=== PATIENT | female | born 1950 | race Caucasian/White ===

== ENCOUNTER → 2017-11-06 12:19 | Outpatient (CLI) | payer MEDICARE, SELFPAY ==
[2017-11-06 13:35] LABS: Hemoglobin 14.8 g/dl (12.0-15.0); Mean Corp Hgb Conc 32.9 g/gl (32-36); Mean Corpuscular Hgb 30.6 pg (27.0-32.0); Mean Platelet Vol. 11.9 fl (6.2-12.0); Platelet Count 171 K/mm3 (150-450); RBC Distribution Width CV 13.4 % (11.6-14.6); RBC Distribution Width SD 45.1 fl (35.1-43.9); Red Blood Count 4.84 M/mm3 (4.2-5.4); Scan Indicated on CBC? Y/N NO; White Blood Count 6.1 K/mm3 (4.4-11.0)
[2017-11-06 14:20] LABS: ALB/GLOB Ratio 1.2 RATIO (0.9-2.4); AST(SGOT) 17 U/L (15-37); Alanine Aminotransfer ALT/SGPT 9 U/L (13-56); Albumin, Serum 3.7 g/dL (3.2-5.0); Alkaline Phosphatase 122 U/L (45-117); Anion Gap 8 (5-15); BUN 19 mg/dL (7-18); BUN/Creat Ratio 16.8 RATIO (10-20); Bilirubin, Direct 0.12 mg/dL (0.00-0.30); Calcium,Total 8.9 mg/dL (8.5-10.1); Chloride 108 mmol/L (98-107); Cholesterol 108 mg/dL (200); Creatinine, Serum 1.13 mg/dL (0.55-1.02); EST Glomerular Filtration Rate 51 mL/min (>60); Est Glom Filt Rate - Afr Amer 61 mL/min (>60); Globulin 3.2 g/dL (2.2-4.2); Glucose 105 mg/dL (70-110); High Density Lipoprotein 37 mg/dL; Phosphorus 3.6 mg/dL (2.5-4.9); Potassium 4.2 mmol/L (3.5-5.1); Protein, Total 6.9 g/dL (6.4-8.2); Sodium Level 143 mmol/L (136-145); Triglycerides 162 mg/dL
[2017-11-06 14:21] LABS: Ferritin 91 ng/mL (8-252); Free T3 2.2 pg/mL (2.18-3.98); Iron 74 ug/dL (50-170); Iron Binding Capacity,Total 309 ug/dL (250-450); T4 Free Direct 1.01 ng/dL (0.76-1.46); Thyroid Stim Hormone (TSH) 0.88 uIU/mL (0.358-3.74); Very Low Density Lipoprotein 32 mg/dL (5-40)
[2017-11-07 08:36] LABS: Vitamin B12 243 pg/mL (211-911)
== END ==
PROVIDERS: Family Provider Family Medicine; PCP Family Medicine; Visit Provider Nurse Practitioner Acute Care
DX: G20 Parkinson's disease (principal); E78.5 Hyperlipidemia, unspecified; I25.119 Atherosclerotic heart disease of native coronary artery with unspecified angina pectoris; I10 Essential (primary) hypertension
CPT/HCPCS: 36415; 80053; 80061; 82248; 82607; 82728; 82746; 83540; 83550; 83735; 84100; 84439; 84443; 84481; 85027

== ENCOUNTER 2017-12-04 13:00 | Outpatient (RCR) | payer MEDICARE, SELFPAY ==
--- NOTE | 2017-11-26 14:25 | HP.PTEVAL_ITS ---
Patient's Visit Information YVONNE LUCERO is a 67 year old F referred to Physical Therapy by Irma Morgan, TREVA FIERRO.LE with a diagnosis of Parkinsons. 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 - Subjective Subjective: Doctor sent her due to worsening Parkinson's. Veerrs right at time and runs into doors. Shuffle is increasing in gait. Worse in the morning. Worse when tired. No pain, no psinning, legs shake but no neuropathy. No falls. No AD needed. Live with who does a lot for her. Has steps at home which are not a problem with one rail. carries laundry for her and always has. Dresses self and showers self. Has chair in shower if needs it. Bathroom self. 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 On feet alot. Gets tired. Sleep is interrupted due to sleep apnea. Doc wants cpap but doesn't meet all qualifications. HEP: no. Enjoys reading and computer on non volunteering days. - Objective Walks normal but flat affect on face, transfers to and fro chair without EU independently. To and fro supine I. Steps are reciprocal with one rail. VOR ambulation slow but I. reflexes in patella and achilles 1/3. Sensation LE WNL to gross light touch. strength EL 4-/5 without myotomal abnormalities. flexibility is WFL. Mild tightness in HS and gastroc. coordination to reciprocal toe tap is slow. - Balance Scores Functional Gait Assessment Score: 28 % Disability: 6.6700 CATSIB Score (Max score 120 seconds): 110 - Goals Goal 1:: i with approp ex to help limit fatigue in gym via [employer] Goal Time Frame: 2-4 Weeks - Rehabilitation Potential Physical Therapy Diagnosis: Parkinsons' Rehabilitation Potential: Good - Anticipated Interventions Patient/Client Instruction: Educate patient on: Condition For the Purpose of:: To improve gait and locomotor functions Therapeutic Exercise to Include: Strength training For the Purpose of:: To improve muscle performance and motor function Thank you for the opportunity to evaluate your patient. For Medicare and Medicare HMO plans, please review the plan of care and approve it. It will need to be FAXED BACK to us at [phone] for Medicare purposes. Please let me know if there are questions or concerns regarding this plan of care. Physician Signature: Date:
--- NOTE | 2017-12-04 13:42 | HP.PTDCSUM ---
HP - PT D/C Summary It has been my pleasure to treat YVONNE LUCERO under orders from Irma Morgan, GURUC, PADMINI for the diagnosis of Parkinsons for a total of 2 visit(s). Discharge Date: 12/04/17 Please see the following information for a summary of their discharge status. - Subjective Subjective: Doing well, no pain, just wants to learn ex and get out. - Objective Objective/Function: Pt did well with exeercises and feels confident that , with the list, she can do it herself vs have more PT. 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 - D/C Information Discharge Comments: Pt wants to continue via [employer] due to cost vs cotninued PT. If there are questions or concerns regarding this patient's physical therapy, please feel free to call me at [phone]. Thank you for the referral of this patient. Sincerely, Mark Banks, DPT, OC
== END 2017-12-04 19:00 | disposition home or self-care (01) ==
LOC: PT 13:00
PROVIDERS: Family Provider Family Medicine; PCP Family Medicine; Visit Provider Nurse Practitioner Acute Care
DX: G20 Parkinson's disease (principal); R26.89 Other abnormalities of gait and mobility
CPT/HCPCS: 97110; 97162

== ENCOUNTER → 2018-01-19 20:09 | Outpatient (CLI) | payer MEDICARE, SELFPAY | PROVIDERS: Family Provider Family Medicine; PCP Family Medicine; Visit Provider Nurse Practitioner Acute Care | DX: G47.33 Obstructive sleep apnea (adult) (pediatric) (principal) | CPT/HCPCS: 95810 ==

== ENCOUNTER → 2018-04-22 20:13 | Outpatient (CLI) | payer MEDICARE, SELFPAY | PROVIDERS: Family Provider Family Medicine; PCP Family Medicine; Visit Provider Nurse Practitioner Acute Care | DX: G47.33 Obstructive sleep apnea (adult) (pediatric) (principal) | CPT/HCPCS: 95811 ==

== ENCOUNTER → 2018-05-28 11:54 | Outpatient (CLI) | payer MEDICARE, SELFPAY ==
--- NOTE | 2018-05-28 11:56 | BI_ITS ---
MAMMOGRAPHY - BILATERAL SCREENING REASON FOR EXAM: Female, 68 years old. Routine annual screening examination. PERTINENT HISTORY: Non-contributory. TECHNIQUE: Digital bilateral breast gregg (3D mammographic acquisition) in the CC and MLO projections. 2-D mediolateral oblique (MLO) and craniocaudad (CC) views of both breasts were obtained. CAD: Full Field Digital Mammography with Computer Added Detection was performed. COMPARISON: Comparison is made with prior study dated September 12, 2016 and July 27, 2014. FINDINGS: Breast Composition: There are scattered areas of fibroglandular density. There are no dominant masses or suspicious calcifications. No other significant abnormalities are identified. There has been no significant change since the prior study. BI/Bilat Brst Screen Gregg Add-On IMPRESSION: Stable bilateral screening mammogram. Yearly follow-up mammogram recommended. (A) ASSESSMENT CATEGORY: BIRADS Category 1: Negative. A letter regarding these results will be sent to the patient by the facility within 30 days. Approximately 10% of breast cancers are not detected by mammography. A normal mammogram should not delay biopsy of a clinically suspicious abnormality. [id number] Electronically Signed: Nabil Wadsworth MD at 13:09 EDT Tel [phone], Service support ,
== END ==
PROVIDERS: Family Provider Family Medicine; PCP Family Medicine; Visit Provider Family Medicine
DX: Z12.31 Encounter for screening mammogram for malignant neoplasm of breast (principal)
CPT/HCPCS: 77063; 77067

== ENCOUNTER → 2018-06-09 10:49 | Outpatient (CLI) | payer MEDICARE, SELFPAY ==
[2018-06-09 11:28] LABS: AST(SGOT) 13 U/L (15-37); Alanine Aminotransfer ALT/SGPT 10 U/L (13-56); Albumin, Serum 3.6 g/dL (3.2-5.0); Alkaline Phosphatase 127 U/L (45-117); Bilirubin, Direct 0.12 mg/dL (0.00-0.30); Cholesterol 111 mg/dL (200); Globulin 3.3 g/dL (2.2-4.2); High Density Lipoprotein 42 mg/dL; Protein, Total 6.9 g/dL (6.4-8.2); Triglycerides 151 mg/dL; Very Low Density Lipoprotein 30 mg/dL (5-40)
== END ==
PROVIDERS: Family Provider Family Medicine; PCP Family Medicine; Visit Provider Physician Assistant Medical
DX: I25.118 Atherosclerotic heart disease of native coronary artery with other forms of angina pectoris (principal); E78.5 Hyperlipidemia, unspecified
CPT/HCPCS: 36415; 80061; 80076

== ENCOUNTER → 2019-05-26 10:10 | Outpatient (CLI) | payer MEDICARE, SELFPAY ==
[2019-03-30 10:48] VITALS: BMI 28.5
[2019-05-26 11:20] LABS: Absolute Lymphocyte Count 1.16 X10^3/uL (0.83-4.51); Absolute Neutrophil Count 4.1 X10^3/uL (2.0-7.7); Basophil# 0.05 X10^3/uL; Basophil% 0.8 % (0-1); Eosinophil# 0.25 X10^3/uL; Eosinophils% 4.2 % (0-5); Hematocrit 44.6 % (37-47); Hemoglobin 14.6 g/dL (12.0-15.0); Lymphocyte # 1.16 X10^3/ul (4.0); Lymphocyte % 19.4 % (19-41); Mean Corp Hgb Conc 32.7 g/dL (32-36); Mean Corpuscular Hgb 30.5 pg (27.0-32.0); Mean Corpuscular Volume 93.3 fL (81-99); Mean Platelet Vol. 12.6 fl (6.2-12.0); Monocyte# 0.44 X10^3/uL; Monocyte% 7.4 % (0-10); NRBC Flagged by Analyzer 0 % (0-5); Neutrophil # 4.05 X10^3/uL (2.7-7.7); Neutrophil % 67.9 % (47-70); Platelet Count 145 K/mm3 (150-450); RBC Distribution Width CV 12.8 % (11.6-14.6); Red Blood Count 4.78 M/mm3 (4.2-5.4)
[2019-05-26 11:46] LABS: ALB/GLOB Ratio 1.2 RATIO (0.9-2.4); AST(SGOT) 17 U/L (15-37); Alanine Aminotransfer ALT/SGPT 8 U/L (13-56); Albumin, Serum 3.7 g/dL (3.2-5.0); Alkaline Phosphatase 128 U/L (45-117); Anion Gap 10 (5-15); BUN 24 mg/dL (7-18); BUN/Creat Ratio 22.6 RATIO (10-20); Calcium,Total 8.7 mg/dL (8.5-10.1); Chloride 108 mmol/L (98-107); Cholesterol 108 mg/dL (200); Creatinine, Serum 1.06 mg/dL (0.55-1.02); EST Glomerular Filtration Rate 54 mL/min (>60); Est Glom Filt Rate - Afr Amer 66 mL/min (>60); Globulin 3.1 g/dL (2.2-4.2); Glucose 99 mg/dL (74-106); High Density Lipoprotein 37 mg/dL; Potassium 4.1 mmol/L (3.5-5.1); Protein, Total 6.8 g/dL (6.4-8.2); Sodium Level 143 mmol/L (136-145); Triglycerides 270 mg/dL; Very Low Density Lipoprotein 54 mg/dL (5-40)
== END ==
PROVIDERS: Family Provider Family Medicine; PCP Family Medicine; Referring Provider Family Medicine; Visit Provider Family Medicine
DX: I25.10 Atherosclerotic heart disease of native coronary artery without angina pectoris (principal); I10 Essential (primary) hypertension; E78.5 Hyperlipidemia, unspecified; K76.0 Fatty (change of) liver, not elsewhere classified
CPT/HCPCS: 36415; 80053; 80061; 85025

== ENCOUNTER → 2019-06-08 11:56 | Outpatient (CLI) | payer MEDICARE, SELFPAY ==
[2019-03-30 10:48] VITALS: BMI 28.5
--- NOTE | 2019-06-08 11:58 | RAD_ITS ---
STUDY: X-RAY - LEFT HUMERUS REASON FOR EXAM: Female, 69 years old. Fall. Pain. TECHNIQUE: 3 view(s) of the humerus. COMPARISON: None. FINDINGS: Normal visualized humerus. There is no demonstrated fracture or osseous destructive process. There are mild degenerative changes of the acromioclavicular joint. The glenohumeral joint and elbow appear intact. There is no demonstrated soft tissue abnormality. RAD/Humerus min 2 Views IMPRESSION: No acute fracture or dislocation. Electronically Signed: Mario Paredes DO at 22:56 EDT Tel [phone], Service support ,
--- NOTE | 2019-06-08 12:23 | RAD_ITS ---
STUDY: X-RAY - LEFT SHOULDER REASON FOR EXAM: Female, 69 years old. Fall. Pain. TECHNIQUE: 4 view(s) of the shoulder. COMPARISON: Left humerus, June 08, 2019. Chest, August 30, 2014. FINDINGS: Normal glenohumeral articulation. There is degenerative arthrosis of the acromioclavicular joint without inferior osseous spur formation. Normal acromion. There is no acute fracture, dislocation or destructive osseous pathology. Normal humeral head and visualized proximal humerus. The soft tissue structures are unremarkable. Normal visualized pulmonary apex. RAD/Shoulder min 2 Views IMPRESSION: Mild degenerative changes acromioclavicular joint without other evidence of left shoulder abnormality. No major interval change from the prior chest film. Electronically Signed: Mario Paredes DO at 22:57 EDT Tel [phone], Service support ,
== END ==
PROVIDERS: Family Provider Family Medicine; PCP Family Medicine; Referring Provider Nurse Practitioner Family; Visit Provider Nurse Practitioner Family
DX: M25.512 Pain in left shoulder (principal); M79.602 Pain in left arm; W19.XXXA Unspecified fall, initial encounter
CPT/HCPCS: 73030; 73060

== ENCOUNTER → 2019-06-14 14:15 | Outpatient (CLI) | payer MEDICARE, SELFPAY ==
[2019-03-30 10:48] VITALS: BMI 28.5
--- NOTE | 2019-06-14 14:19 | BI_ITS ---
MAMMOGRAPHY - BILATERAL SCREENING REASON FOR EXAM: Female, 69 years old. Routine annual screening examination. PERTINENT HISTORY: Non-contributory. TECHNIQUE: Digital bilateral breast diogo (3D mammographic acquisition) in the CC and MLO projections. 2-D mediolateral oblique (MLO) and craniocaudad (CC) views of both breasts were obtained. CAD: Full Field Digital Mammography with Computer Added Detection was performed. COMPARISON: Comparison is made with prior examination dated May 28, 2018 and September 12, 2016. FINDINGS: Breast Composition: There are scattered areas of fibroglandular density. There are no dominant masses or suspicious calcifications. No other significant abnormalities are identified. There has been no significant change since the prior study. BI/SCREEN MAMM (CAD) W/DIOGO BILAT IMPRESSION: Stable bilateral screening mammogram. Yearly follow-up mammogram recommended. (A) ASSESSMENT CATEGORY: BIRADS Category 1: Negative. A letter regarding these results will be sent to the patient by the facility within 30 days. Approximately 10% of breast cancers are not detected by mammography. A normal mammogram should not delay biopsy of a clinically suspicious abnormality. [id number] Electronically Signed: Nabil Wadsworth, at 8:24 EDT , Service support ,
== END ==
PROVIDERS: Family Provider Family Medicine; PCP Family Medicine; Referring Provider Family Medicine; Visit Provider Family Medicine
DX: Z12.31 Encounter for screening mammogram for malignant neoplasm of breast (principal)
CPT/HCPCS: 77063; 77067

== ENCOUNTER → 2019-07-19 15:00 | Outpatient (CLI) | payer MEDICARE, SELFPAY ==
[2019-03-30 10:48] VITALS: BMI 28.5
== END ==
PROVIDERS: Family Provider Family Medicine; PCP Family Medicine; Visit Provider Family Medicine
DX: N39.0 Urinary tract infection, site not specified (principal)
CPT/HCPCS: 87086; 87088; 87186

== ENCOUNTER 2019-10-31 18:38 | Observation (INO) | payer MEDICARE, SELFPAY ==
[2019-03-30 10:48] VITALS: BMI 28.5
[2019-10-31] VITALS (7 sets, daily range): BP systolic 122–175; BP diastolic 64–77; PULSE 49–61; RESP 16–22; TEMP 36.4–36.5; O2SAT 93–98; BMI 29.5; BMI 28.6
--- NOTE | 2019-10-31 19:56 | EKG12_ITS ---
Test Reason : ADMIT Blood Pressure : / mmHG Vent. Rate : 050 BPM Atrial Rate : 050 BPM P-R Int : 148 ms QRS Dur : 084 ms QT Int : 444 ms P-R-T Axes : 037 006 033 degrees QTc Int : [address] & T wave abnormality, consider anterior ischemia Abnormal ECG Confirmed by TETE LOPEZ, ANIKA ([id number]), deputy editor in chief ANNA FRASER ([id number]) on 11/02/2019 12:16:56 PM Referred By: Confirmed By:ANIKA EPSTEIN MD
--- NOTE | 2019-10-31 19:56 | RAD_ITS ---
STUDY: X-RAY CHEST REASON FOR EXAM: Female, 69 years old. Stabbing chest pain under the right breast radiating to the arm which began yesterday and is progressively worse. TECHNIQUE: Single AP portable view of the chest. COMPARISON: March 06, 2017. FINDINGS: The lungs are clear and expanded. There is no demonstrated pleural abnormality. Normal size heart. Normal mediastinum and ivy. Normal visualized pulmonary arteries. Normal visualized aortic arch and descending thoracic aorta. Normal visualized thoracic spine. Normal visualized ribs, clavicles, and shoulders. There is no demonstrated abnormality of the visualized soft tissue structures of the upper abdomen. RAD/Chest 1 View (Portable) IMPRESSION: No acute cardiopulmonary disease or major interval change. Electronically Signed: Mario Paredes DO at 20:17 EST Tel [phone], Service support ,
[2019-10-31] MEDS: Aspirin 81 MG TAB.CHEW 324 MG PO (20:04)
[2019-10-31 20:08] LABS: Absolute Lymphocyte Count 1.71 X10^3/uL (0.83-4.51); Absolute Neutrophil Count 3.8 X10^3/uL (2.0-7.7); Basophil# 0.03 X10^3/uL; Basophil% 0.5 % (0-1); Eosinophil# 0.23 X10^3/uL; Eosinophils% 3.6 % (0-5); Hematocrit 43.4 % (37-47); Hemoglobin 14.1 g/dL (12.0-15.0); Lymphocyte # 1.71 X10^3/ul (4.0); Lymphocyte % 26.8 % (19-41); Mean Corp Hgb Conc 32.5 g/dL (32-36); Mean Corpuscular Hgb 30.3 pg (27.0-32.0); Mean Corpuscular Volume 93.1 fL (81-99); Monocyte# 0.54 X10^3/uL; Monocyte% 8.5 % (0-10); NRBC Flagged by Analyzer 0 % (0-5); Neutrophil # 3.84 X10^3/uL (2.7-7.7); Neutrophil % 60.3 % (47-70); Platelet Count 158 K/mm3 (150-450); RBC Distribution Width SD 44.3 fl (35.1-43.9); Red Blood Count 4.66 M/mm3 (4.2-5.4); White Blood Count 6.4 K/mm3 (4.4-11.0)
[2019-10-31 20:24] LABS: Anion Gap 4 (5-15); BUN 25 mg/dL (7-18); BUN/Creat Ratio 20.2 RATIO (10-20); Calcium,Total 9.2 mg/dL (8.5-10.1); Chloride 107 mmol/L (98-107); Creatinine, Serum 1.24 mg/dL (0.55-1.02); EST Glomerular Filtration Rate 45 mL/min (>60); Est Glom Filt Rate - Afr Amer 55 mL/min (>60); Glucose 93 mg/dL (74-106); Sodium Level 139 mmol/L (136-145)
--- NOTE | 2019-10-31 20:28 | ED.VIS.CHEST ---
History of Present Illness Chief Complaint: Chest Pain Informant: Patient Onset: Days Activity at onset: Rest Timing: Intermittent Quality: Tightness Worsened By: Nothing Relieved By: Nothing Narrative: Patient is a 69-year-old female with history of coronary artery disease status post stents x2, hypertension, Parkinson's, IBS, hyperlipidemia, GERD and depression presenting with chest pain. Patient states that she has had intermittent chest pain for the past month. Yesterday it became more severe. The chest pain is in her right anterior chest and radiates to her right axilla. She states that since 5 PM it is been constant. She describes it as a vice-like patient services manager in her chest. She denies any associated shortness of breath, edema, nausea, vomiting or diaphoresis. She did take 3 nitroglycerin sublingual tablets at home but they did not work. She also states that the medication is quite old so she is not sure if they were good anymore. Patient denies any other complaints at this time. 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 She thinks her last stress test was about a year ago. Per chart review patient's last cardiac catheterization was 04/2017. CVD Risk Factors: Hypertension, Hypercholesterolemia Past Medical History - Allergies and Home Meds Allergies/Adverse Reactions: Allergies celecoxib [From Celebrex] Allergy (Verified 10/31/19 22:26) Unknown Opioids - Morphine Analogues Allergy (Verified 10/31/19 22:26) hallucinate promethazine HCl [From Phenergan] Adverse Reaction (Verified 10/31/19 22:26) Other Past Medical History: - - coronary artery disease status post stents x2, hypertension, Parkinson's, IBS, hyperlipidemia, GERD and depression Surgical History: - - Bilateral CT release, Cardiac stent placement 2007, 2013. Carpal tunnel surgery Lives: Spouse/ Significant Other Smoking Status: Current every day smoker - Family History Maternal Family History: Family History (Last Reviewed 03/30/19 @ 11:05 by Frandy Tarango MD) Father CAD (coronary artery disease) Mother CAD (coronary artery disease) Other Family history of hyperlipidemia Family history of hypertension Family History: Reports: Heart Disease Paternal Family History: Family History (Last Reviewed 03/30/19 @ 11:05 by Frandy Tarango MD) Father CAD (coronary artery disease) Mother CAD (coronary artery disease) Other Family history of hyperlipidemia Family history of hypertension Family History: Reports: Cancer, Heart Disease Review of Systems General: Denies: Chills, Fever, Sweats Eyes: Denies: Visual changes - bilaterally, Diplopia ENT: Denies: Rhinorrhea, Sore throat Cardiovascular: Reports: Chest pain. Denies: Palpitations Respiratory: Denies: Dyspnea, Cough, Dyspnea on exertion Gastrointestinal: Denies: Abdominal pain, Nausea, Vomiting, Diarrhea, Melena, Hematochezia Genitourinary: Denies: Dysuria, Hematuria, Frequency Musculoskeletal: Denies: Back pain, Extremity Pain Skin: Denies: Rash, Wounds Neurological: Denies: Headache, Weakness, Numbness Physical Exam Vital Signs/Narrative: Vital Signs Temp Pulse Resp BP Pulse Ox 10/31/19 20:00 52 L 19 H 167/72 H 96 10/31/19 18:38 97.7 F L 52 L 22 H 175/72 H 98 Inital Vital Signs reviewed: Yes General: Well nourished, Well developed, No Acute Distress Head: Normocephalic, Atraumatic Eyes: Perrl, EOMI ENT: Moist mucous membranes, No rhinorrhea Neck: Supple, Nontender Cardiovascular: Regular rate, Regular rhythm, No murmurs Respiratory: No distress, CTA bilaterally, Chest nontender. Negative for: Chest tenderness Abdomen: Soft, Nontender, Nondistended, Normal bowel sounds Back: Nontender, Normal Inspection Extremities: Nontender, No edema Skin: Normal color, No rash Neurological: Alert, Oriented x3, Cranial nerves II-XII grossly intact, Normal Strength, Normal Sensation Psychological: Normal affect, Normal Mood Diagnostic/Tx/Re-eval Chest X-Ray - ED: 2 View, Read by ED Physician, Read by Radiologist, No Acute Disease Clinical Impression(s) from Imaging Studies Chest X-Ray 10/31/19 19:56 IMPRESSION: No acute cardiopulmonary disease or major interval change. Electronically Signed: Mario Paredes DO at 20:17 EST Tel [phone], Service support , Laboratory Data 10/31/19 10/31/19 18:45 18:45 WBC 6.4 RBC 4.66 Hgb 14.1 Hct 43.4 MCV 93.1 MCH 30.3 MCHC 32.5 RDW Std Deviation 44.3 H RDW Coeff of Navjot 13.0 Plt Count 158 MPV 12.0 Immature Gran % (Auto) 0.300 Neut % (Auto) 60.3 Lymph % (Auto) 26.8 Collin % (Auto) 8.5 Eos % (Auto) 3.6 Baso % (Auto) 0.5 Absolute Neuts (auto) 3.8 Absolute Lymphs (auto) 1.71 Nucleated RBC % 0 Sodium 139 Potassium 4.0 Chloride 107 Carbon Dioxide 28.0 Anion Gap 4 L BUN 25 H Creatinine 1.24 H Estim Creat Clear Calc 31.40 Est GFR (MDRD) Af Amer 55 L Est GFR (MDRD) Non-Af 45 L BUN/Creatinine Ratio 20.2 H Glucose 93 Calcium 9.2 Troponin I < 0.015 - Rhythm Strip Rhythm Strip: Sinus Rhythm Rate: 54 Ectopy: None - EKG Initial EKG Interpretation: Sinus Bradycardia, - - Sinus bradycardia at a rate of 54 Normal axis Normal SD and QRS interval Normal QTC Nonspecific T wave inversions in V1 through V5 Treatment: Aspirin, NTG SL FELICIA Risk: Age >/= 65, H/O CAD, ASA within 7 days Score: 3 - Medical Decision Making Patient is a 69-year-old female with history of coronary artery disease with [address] presenting with atypical chest pain. She states in 5 PM she has had a viselike chest pain which has also been occurring pain intermittently for the past month and more significantly over the past 2 days. Patient's EKG shows no acute ST segment changes but does have nonspecific T wave inversions. Troponin is normal. Patient's FELICIA score is 3. She will be admitted for further cardiac evaluation. She is given a dose of nitroglycerin in the emergency room. Her pain was already subsiding but it improved further after the nitroglycerin. Her blood pressure did drop to 112 systolic however she was asymptomatic. She was not given further doses of nitroglycerin. She is given a full dose aspirin in the emergency room as well. Patient is agreeable to plan. She stable for PCU at time of disposition. ED Disposition - Plan for ED Patient: Disposition: [facility] Diagnosis: Atherosclerotic heart disease of [place] coronary artery with other forms of angina pectoris
[2019-10-31] MEDS: Nitroglycerin SL (ED/IMG/CATH) 0.4 MG TABLET SUBLINGUAL (20:32)
--- NOTE | 2019-10-31 20:40 | ED.RN ---
1ST DOSE OF NITRO SL GIVEN WITH RESULTS OF 2/10 PAIN. PATIENT'S BP DROPPED TO 112/54. RN INFORMED DR CHOPRA AT THIS TIME.
--- NOTE | 2019-10-31 21:33 | HP.PCM_ITS ---
Problem List (1) Chest pain Status: Acute (2) Essential (primary) hypertension Status: Chronic (3) History of coronary artery stent placement Status: Chronic Comment: PCI-AGUSTO to RCA 02/19/2008; PCI-AGUSTO-Mid LAD 10/08/2013 (4) Atherosclerotic heart disease of [place] coronary artery with other forms of angina pectoris Status: Chronic Comment: PCI-AGUSTO to RCA 02/19/2008; PCI-AGUSTO-Mid LAD 10/08/2013 History of Present Illness Date of Admission: 10/31/19 Chief Complaint: chest pain The patient is a 69 year old F with a significant history of CAD status post 2 stents who presents emergency department with chest pain that started about a week ago; and re-occurred a day before presentation. On the day of presentation her chest pain was progressively getting worse. Her chest pain is substernal. Her chest pain radiates to the right armpit. At home, she took some nitroglycerin which were old and probably . The nitroglycerin gave her mild relief. Also at the ED she had relief with nitroglycerin. She denies any aggravating factor. Her chest pain improves when she lie down and rest . She denies any nausea, vomiting or shortness of breath with the pain. She had a first coronary stent placed in 2007; and a second coronary stent placed in 2013. She had a negative stress test in March 2017. Per cardiology notes; in 2016 patient had a cardiac catheterization that shows that both coronary stents were patent. Past Medical History Past Medical History (Chronic Problems): Chronic Problems (Last Reviewed 11/01/19 @ 01:52 by Ishmael Stephens MD) Essential (primary) hypertension (Chronic) History of coronary artery stent placement (Chronic 10/08/13) PCI-AGUSTO to RCA 02/19/2008; PCI-AGUSTO-Mid LAD 10/08/2013 Atherosclerotic heart disease of [place] coronary artery with other forms of angina pectoris (Chronic) PCI-AGUSTO to RCA 02/19/2008; PCI-AGUSTO-Mid LAD 10/08/2013 Medical History: Medical History (Last Reviewed 11/01/19 @ 02:05 by Ishmael Stephens MD) Essential (primary) hypertension (Chronic) I10 Atherosclerotic heart disease of [place] coronary artery with other forms of angina pectoris (Chronic) I25.118 PCI-AGUSTO to RCA 02/19/2008; PCI-AGUSTO-Mid LAD 10/08/2013 Anxiety F41.9 Depression F32.9 GERD (gastroesophageal reflux disease) K21.9 HLD (hyperlipidemia) E78.5 Irritable bowel syndrome Obesity E66.9 Obstructive sleep apnea G47.33 Parkinson disease G20 Piriformis syndrome of left side G57.02 REM sleep behavior disorder G47.52 Strain of right piriformis muscle S76.311A Allergies celecoxib [From Celebrex] Allergy (Verified 03/30/19 10:48) Unknown Opioids - Morphine Analogues Allergy (Verified 03/30/19 10:52) hallucinate promethazine HCl [From Phenergan] Adverse Reaction (Verified 03/30/19 10:48) Other Home Medications: Ambulatory Orders Medication Instructions Recorded Aspirin [Aspirin, Baby] 81 mg PO DAILY@0800 07/20/14 Fluoxetine [Prozac] 20 mg PO BID 07/20/14 Nitroglycerin (INPATIENT USE) 0.4 mg SUBLINGUAL Q5M PRN 10/19/14 [Nitrostat] Mirtazapine [Remeron] 15 mg PO QHS #30 tab 07/18/15 Pantoprazole Sodium [Protonix] 40 mg PO DAILY #30 tab 03/07/17 cholecalciferol (vitamin D3) 25 2,000 unit PO DAILY tab 11/28/17 mcg (1,000 unit) tablet clonazepam 0.5 mg tablet 1 mg PO QHS PRN PRN 11/28/17 ropinirole 2 mg tablet,extended 3 mg PO QHS 11/28/17 release 24 hr carbidopa 25 mg-levodopa 100 mg 2 tab PO .3x/day tab 03/30/19 tablet metoprolol tartrate 25 mg tablet 25 mg PO BID #180 tab 05/19/19 atorvastatin 40 mg tablet 40 mg PO QHS #90 tab 08/23/19 clopidogrel 75 mg tablet 75 mg PO DAILY #90 tab 08/24/19 Amlodipine Besylate [Norvasc] 5 mg PO DAILY 10/31/19 Surgical History: Surgical History (Last Reviewed 11/01/19 @ 02:05 by Ishmael Stephens MD) History of coronary artery stent placement (Chronic) Onset Date: 10/08/13 Z95.5 PCI-AGUSTO to RCA 02/19/2008; PCI-AGUSTO-Mid LAD 10/08/2013 History of carpal tunnel release of both wrists Z98.890 History of cataract extraction Z98.49 bilateral History of hysterectomy Z90.710 History of left heart catheterization Onset Date: 04/11/17 Z98.890 08/02/2008 ,10/08/2013, 04/11/2017 History of nasal polypectomy Z98.890, Z87.09 Surgical History: - - Bilateral CT release, Cardiac stent placement 2007, 2013. 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 Lives: Spouse/ Significant Other Smoking Status: Current every day smoker Tobacco Use: Cigarettes - *Family History Maternal Family History: Family History (Last Reviewed 11/01/19 @ 01:53 by Ishmael Stephens MD) Father CAD (coronary artery disease) Mother CAD (coronary artery disease) Other Family history of hyperlipidemia Family history of hypertension History Items: Heart Disease Paternal Family History: Family History (Last Reviewed 11/01/19 @ 01:53 by Ishmael Stephens MD) Father CAD (coronary artery disease) Mother CAD (coronary artery disease) Other Family history of hyperlipidemia Family history of hypertension History Items: Cancer, Heart Disease Review of Systems Constitutional: Denies: Chills, Fever, Weight Change HEENT: Denies: Head Aches, Sinus Congestion, Sinus Drainage Cardiovascular: Reports: Chest Pain. Denies: Palpitations Respiratory: Denies: Cough, Shortness of breath at rest, Sputum production Gastrointestinal: Denies: Abdominal Pain, Nausea, Vomiting Genitourinary: Denies: Dysuria Musculoskeletal: Denies: Joint Pain, Joint Tenderness Skin: Denies: Rash, Wounds Neurological: Denies: Numbness, Tingling, Focal weakness Psychiatric: Denies: Anxiety, Depression, Homicidal Ideations, Suicidal Ideations Hematologic/ Lymphatic: Denies: Easy Bruising, Easy Bleeding VTE Information - Inpt Only VTE Present on Admission: No VTE Mechan Device Prophylaxis: SCD's VTE Pharm Prophylaxis ordered?: No Patient Problems: Active and Suspected Problems (Last Reviewed 11/01/19 @ 01:52 by Ishmael Stephens MD) Chest pain (Acute) - Physical Exam Vitals/I&O's: Vital Signs Temp Pulse Resp BP Pulse Ox 97.7 F L 61 19 H 167/72 H 96 10/31/19 18:38 10/31/19 20:32 10/31/19 20:00 10/31/19 20:32 10/31/19 20:00 Oxygen Delivery Method Room Air Weight: 70.9 kg Body Mass Index (BMI) 29.5 General: Alert, Oriented x3, Cooperative HEENT: Atraumatic, PERRLA, EOMI, Normocephalic Neck: Supple, No JVD, Negative Carotid Bruits Lungs: Clear to auscultation, Normal air movement Cardiovascular: Normal S1, Normal S2, No murmurs, Bradycardic Abdomen: Bowel Sounds Present, Soft, Non Tender Extremities: No edema, Capillary Refill Less than 3 Seconds Skin: No rashes, No breakdown Musculoskeletal: No Tenderness to Palpation of Joints or Extremities Neurological: Cranial nerves II-XII grossly intact Psych/Mental Status: Normal Affect, Appropriate Laboratory Results 10/31/19 18:45: WBC 6.4, RBC 4.66, Hgb 14.1, Hct 43.4, MCV 93.1, MCH 30.3, MCHC 32.5, RDW Std Deviation 44.3 H, RDW Coeff of Navjot 13.0, Plt Count 158, MPV 12.0, Immature Gran % (Auto) 0.300, Neut % (Auto) 60.3, Lymph % (Auto) 26.8, [place] % (Auto) 8.5, Eos % (Auto) 3.6, Baso % (Auto) 0.5, Absolute Neuts (auto) 3.8, Absolute Lymphs (auto) 1.71, Nucleated RBC % 0 10/31/19 18:45: Sodium 139, Potassium 4.0, Chloride 107, Carbon Dioxide 28.0, Anion Gap 4 L, BUN 25 H, Creatinine 1.24 H, Estim Creat Clear Calc 31.40, Est GFR (MDRD) Af Amer 55 L, Est GFR (MDRD) Non-Af 45 L, BUN/Creatinine Ratio 20.2 H , Glucose 93, Calcium 9.2, Troponin I < 0.015 Assessment/Plan All Active Problems (Last Reviewed 11/01/19 @ 01:52 by Ishmael Stephens MD) Chest pain (Acute) Chest pain (Resolved) Closed head injury without concussion (Resolved) Dyspnea, unspecified (Resolved) Left hip pain (Resolved) Palpitations (Resolved) Urinary tract infection (Resolved) The patient is a 69 year old F with a significant history of CAD status post 2 stents who presents emergency department with chest pain. Chest pain Place on a monitored bed at PCU CXR independently reviewed confirms no acute cardiopulmonary process. EKG independently reviewed confirms T wave inversions in leads V1 through V3 and T wave flattening in V4 through V5. Old records reviewed showed unchanged EKG. Aspirin 324 mg work was given at the emergency department. ASA 81 mg p.o. daily SL NTG 0.4 mg prn as needed for chest pain We will check lipid panel. Statin: On home Lipitor 40 mg daily; continued. Anti-P2Y12 Receptor antibody: Plavix continued. Serial cardiac enzymes Stat EKG as needed for chest pain Chemical Stress test in the AM if the cardiac enzymes are negative . Patient reports that in the past treadmill stress test was changed to chemical stress test because she could not get a heart rate to the targeted heart rate. Bradycardia At home patient take metoprolol 25 mg twice daily. At hospital noted to have heart rates dipping to as low as 49. Will decrease metoprolol dose from 25 mg twice daily to 12.5 mg twice daily. Hold for heart rate less than 55. Hypertension On presentation her blood pressure was not within goal Amlodipine continued. Metoprolol was held secondary to bradycardia.. Hydralazine ordered. Trend Blood pressure and adjust blood pressure medications as necessary. Parkinson's disease Levodopa- carbidopa continue. Requip continued Tobacco abuse Counseled Insomnia Clonazepam as needed continued Depression/anxiety Prozac continued DVT prophylaxis ordered. SCD ordered Code Visit OBSV E&M: 04838 Initial observation care L2
--- NOTE | 2019-10-31 23:48 | EKG12_ITS ---
Test Reason : CP Blood Pressure : / mmHG Vent. Rate : 054 BPM Atrial Rate : 054 BPM P-R Int : 144 ms QRS Dur : 086 ms QT Int : 426 ms P-R-T Axes : 026 002 038 degrees QTc Int : 403 ms Sinus bradycardia Nonspecific ST and T wave abnormality Abnormal ECG Confirmed by JOHNATHON LOPEZ, LIZ ([id number]), research editor MARS HOPPER ([id number]) on 11/03/2019 1:39:05 PM Referred By: NAV Confirmed By:LIZ DIEGO MD
[2019-11-01] VITALS (7 sets, daily range): BP systolic 109–121; BP diastolic 53–59; PULSE 50–61; RESP 14–18; TEMP 36.4–36.6; O2SAT 92–96
[2019-11-01] MEDS: FLUoxetine 20 MG Capsule PO ×2 (01:46→10:48)
[2019-11-01] MEDS: Pramipexole Di-HCl 0.5 MG Tablet 1.5 MG PO (01:46)
[2019-11-01] MEDS: clonazePAM 1 MG Tablet PO (01:46)
[2019-11-01] MEDS: Atorvastatin Calcium 40 MG Tablet PO (01:46)
[2019-11-01] MEDS: Clopidogrel Bisulfate 75 MG Tablet PO (05:20)
[2019-11-01] MEDS: Aspirin 81 MG TAB.CHEW PO (05:20)
[2019-11-01 06:01] LABS: Absolute Lymphocyte Count 1.54 X10^3/uL (0.83-4.51); Absolute Neutrophil Count 3.1 X10^3/uL (2.0-7.7); Basophil# 0.04 X10^3/uL; Basophil% 0.7 % (0-1); Eosinophil# 0.24 X10^3/uL; Eosinophils% 4.5 % (0-5); Lymphocyte # 1.54 X10^3/ul (4.0); Lymphocyte % 28.6 % (19-41); Mean Corp Hgb Conc 32.6 g/dL (32-36); Mean Corpuscular Volume 92.1 fL (81-99); Monocyte# 0.44 X10^3/uL; Monocyte% 8.2 % (0-10); NRBC Flagged by Analyzer 0 % (0-5); Neutrophil % 57.6 % (47-70); Platelet Count 148 K/mm3 (150-450); RBC Distribution Width CV 13.1 % (11.6-14.6); RBC Distribution Width SD 43.7 fl (35.1-43.9); Red Blood Count 4.67 M/mm3 (4.2-5.4); White Blood Count 5.4 K/mm3 (4.4-11.0)
[2019-11-01 06:07] LABS: Anion Gap 6 (5-15); BUN 20 mg/dL (7-18); BUN/Creat Ratio 20.5 RATIO (10-20); Calcium,Total 8.7 mg/dL (8.5-10.1); Chloride 106 mmol/L (98-107); Cholesterol 134 mg/dL (200); Creatinine, Serum 0.98 mg/dL (0.55-1.02); EST Glomerular Filtration Rate 60 mL/min (>60); Est Glom Filt Rate - Afr Amer 72 mL/min (>60); Estimated Creatinine Clearance 39.73 ml/min; Glucose 88 mg/dL (74-106); High Density Lipoprotein 39 mg/dL; Potassium 3.7 mmol/L (3.5-5.1); Sodium Level 139 mmol/L (136-145); Triglycerides 292 mg/dL; Very Low Density Lipoprotein 58 mg/dL (5-40)
[2019-11-01] MEDS: Carbidopa/Levodopa 25/100 Tablet PO ×2 (08:10→12:40)
[2019-11-01] MEDS: Pantoprazole Sodium 40 MG Tablet PO (10:43)
[2019-11-01] MEDS: Metoprolol Tartrate 25 MG Tablet 12.5 MG PO (10:43)
--- NOTE | 2019-11-01 12:51 | PCM.DC ---
- Discharge Diagnoses Current Active Problems: Current Active and Chronic Problems (Last Reviewed 11/01/19 @ 02:05 by Ishmael Stephens MD) Chest pain (Acute) Atherosclerotic heart disease of [place] coronary artery with other forms of angina pectoris (Chronic) PCI-AGUSTO to RCA 02/19/2008; PCI-AGUSTO-Mid LAD 10/08/2013 You will use the following diet at home:: No restrictions Your food should be the consistency of: Regular Discharge Activity: Return to Normal Activity Instructions: CHEST PAIN, NonCardiac Allergies/Adverse Reactions: Allergies celecoxib [From Celebrex] Allergy (Verified 10/31/19 22:26) Unknown Opioids - Morphine Analogues Allergy (Verified 10/31/19 22:26) hallucinate promethazine HCl [From Phenergan] Adverse Reaction (Verified 10/31/19 22:) Other Medications to take at Discharge Aspirin [Aspirin, Baby] 81 mg PO DAILY@0800 07/20/14 Fluoxetine [Prozac] 20 mg PO BID 07/20/14 Nitroglycerin (INPATIENT USE) [Nitrostat] 0.4 mg SUBLINGUAL Q5M PRN 10/19/14 Mirtazapine [Remeron] 15 mg PO QHS #30 tab 07/18/15 Pantoprazole Sodium [Protonix] 40 mg PO DAILY #30 tab 03/07/17 cholecalciferol (vitamin D3) 25 mcg (1,000 unit) tablet 2,000 unit PO DAILY tab 11/28/17 clonazepam 0.5 mg tablet 1 mg PO QHS PRN PRN 11/28/17 ropinirole 2 mg tablet,extended release 24 hr 3 mg PO QHS 11/28/17 carbidopa 25 mg-levodopa 100 mg tablet 2 tab PO .3x/day tab 03/30/19 metoprolol tartrate 25 mg tablet 25 mg PO BID #180 tab 05/19/19 atorvastatin 40 mg tablet 40 mg PO QHS #90 tab 08/23/19 clopidogrel 75 mg tablet 75 mg PO DAILY #90 tab 08/24/19 Amlodipine Besylate [Norvasc] 5 mg PO DAILY 10/31/19 Primary Care Physician: Ghazala Leigh MD [Primary Care Provider] - Please follow up with your Primary Care Physician in: in 1 week Test Results: Test results from this visit will be discussed in further detail at your follow-up appointment, if applicable. Proposed Discharge Date: 11/01/19
--- NOTE | 2019-11-01 12:58 | PCM.DC.SUM ---
Discharge Date and Diagnosis - Problem List Patient Problems: Active and Suspected Problems (Last Reviewed 11/01/19 @ 02:05 by Ishmael Stephens MD) Chest pain (Acute) Date of Admission: 10/31/19 Date of Discharge: 11/01/19 - Primary Discharge Diagnosis Active and Suspected Problems (Last Reviewed 11/01/19 @ 02:05 by Ishmael Stephens MD) Chest pain (Acute) - Secondary Discharge Diagnosis Chronic Problems (Last Reviewed 11/01/19 @ 02:05 by Ishmael Stephens MD) Essential (primary) hypertension (Chronic) History of coronary artery stent placement (Chronic 10/08/13) PCI-AGUSTO to RCA 02/19/2008; PCI-AGUSTO-Mid LAD 10/08/2013 Atherosclerotic heart disease of [place] coronary artery with other forms of angina pectoris (Chronic) PCI-AGUSTO to RCA 02/19/2008; PCI-AGUSTO-Mid LAD 10/08/2013 Hospital Course and Treatment Imaging Results: 11/01/19 05:55 Nuclear Stress Test - Chemical [NM] AM (NON MEDS) Operations: None Summary of Care Provided: The patient is a 69 year old F who presented with chest pain Chest pain ?Patient admitted to monitored bed to rule out CT with serial cardiac enzymes subsequently underwent a nuclear stress test which was negative for stress-induced ischemia GERD ?Patient is on PPI instructed to continue Hypertension ~ blood pressure controlled, home medications continued with dose adjustment as needed Parkinson's disease ?Discontinue patient antihypertensive medication Essential (primary) hypertension (Chronic) I10 Atherosclerotic heart disease of [place] coronary artery with other forms of angina pectoris (Chronic) I25.118 PCI-AGUSTO to RCA 02/19/2008; PCI-AGUSTO-Mid LAD 10/08/2013 Anxiety F41.9 Depression F32.9 GERD (gastroesophageal reflux disease) K21.9 HLD (hyperlipidemia) E78.5 Irritable bowel syndrome Obesity E66.9 Obstructive sleep apnea G47.33 Parkinson disease G20 Piriformis syndrome of left side G57.02 REM sleep behavior disorder G47.52 Strain of right piriformis muscle S76.311A Patient Problems: Active and Suspected Problems (Last Reviewed 11/01/19 @ 02:05 by Ishmael Stephens MD) Chest pain (Acute) Objective: GENERAL: cooperative HEENT: Atraumatic; EYES; Anicteric, Normal Conjunctiva NECK; supple, normal thyroid, RESPIRATORY: Diminished to auscultation CARDIOVASCULAR: Regular S1 S2, NEURO: Awake; no lateralizing signs. SKIN: No Rash PSYCH; Flat affect - Physical Exam Vitals/I&O's: Vital Signs Temp Pulse Resp BP Pulse Ox 97.8 F 59 L 14 109/53 L 96 11/01/19 10:38 11/01/19 12:16 11/01/19 10:38 11/01/19 10:43 11/01/19 10:38 Oxygen Delivery Method Room Air Weight: 68.8 kg Body Mass Index (BMI) 28.6 Intake and Output for Last 24 Hours 10/30/19 10/31/19 11/01/19 23:59 23:59 23:59 Intake Total 560 / 560 Balance 560 / 560 Laboratory Results 10/31/19 18:45: WBC 6.4, RBC 4.66, Hgb 14.1, Hct 43.4, MCV 93.1, MCH 30.3, MCHC 32.5, RDW Std Deviation 44.3 H, RDW Coeff of Navjot 13.0, Plt Count 158, MPV 12.0, Immature Gran % (Auto) 0.300, Neut % (Auto) 60.3, Lymph % (Auto) 26.8, [place] % (Auto) 8.5, Eos % (Auto) 3.6, Baso % (Auto) 0.5, Absolute Neuts (auto) 3.8, Absolute Lymphs (auto) 1.71, Nucleated RBC % 0 10/31/19 18:45: Sodium 139, Potassium 4.0, Chloride 107, Carbon Dioxide 28.0, Anion Gap 4 L, BUN 25 H, Creatinine 1.24 H, Estim Creat Clear Calc 31.40, Est GFR (MDRD) Af Amer 55 L, Est GFR (MDRD) Non-Af 45 L, BUN/Creatinine Ratio 20.2 H, Glucose 93, Calcium 9.2, Troponin I < 0.015 11/01/19 00:10: Troponin I < 0.015 11/01/19 02:47: Troponin I < 0.015 11/01/19 05:19: WBC 5.4, RBC 4.67, Hgb 14.0, Hct 43.0, MCV 92.1, MCH 30.0, MCHC 32.6, RDW Std Deviation 43.7, RDW Coeff of Navjot 13.1, Plt Count 148 L, MPV 12.0, Immature Gran % (Auto) 0.400, Neut % (Auto) 57.6, Lymph % (Auto) 28.6, [place] % (Auto) 8.2, Eos % (Auto) 4.5, Baso % (Auto) 0.7, Absolute Neuts (auto) 3.1, Absolute Lymphs (auto) 1.54, Nucleated RBC % 0 11/01/19 05:19: Sodium 139, Potassium 3.7, Chloride 106, Carbon Dioxide 27.0, Anion Gap 6, BUN 20 H, Creatinine 0.98, Estim Creat Clear Calc 39.73, Est GFR (MDRD) Af Amer 72, Est GFR (MDRD) Non-Af 60, BUN/Creatinine Ratio 20.5 H, Glucose 88, Calcium 8.7, Troponin I < 0.015, Triglycerides 292 H, Cholesterol 134, LDL Cholesterol 37, VLDL Cholesterol 58 H, HDL Cholesterol 39 L Current Medications Acetaminophen (Tylenol) 650 mg PO Q6H PRN PRN PRN Reason: Pain Score 1-3/Temp > 100.7 F Amlodipine Besylate (Norvasc) 5 mg PO DAILY [facility] Aspirin (Aspirin, Baby) 81 mg PO DAILY@0800 [facility] Last Admin: 11/01/19 05:20 Dose: 81 mg Documented by: Atorvastatin Calcium (Lipitor) 40 mg PO QHS [facility] Carbidopa/Levodopa (Sinemet) 2 tablet PO 0800,1200 [facility] Last Admin: 11/01/19 12:40 Dose: 2 tablet Documented by: Carbidopa/Levodopa (Sinemet) 1 tablet PO 1600,1900 [facility] Clonazepam (Klonopin) 1 mg PO QHS PRN PRN PRN Reason: SLEEP Last Admin: 11/01/19 01:46 Dose: 1 mg Documented by: Clopidogrel Bisulfate (Plavix) 75 mg PO DAILY [facility] Last Admin: 11/01/19 05:20 Dose: 75 mg Documented by: Dextrose (D50w Syringe) 0 gm IV X1 PRN; Protocol PRN Reason: Hypoglycemia Fluoxetine HCl (Prozac) 20 mg PO BID [facility] Last Admin: 11/01/19 10:48 Dose: 20 mg Documented by: Glucagon () 1 mg IM .X1 PRN PRN Reason: Hypoglycemia Hydralazine HCl (Apresoline Iv) 5 mg IV Q4H PRN PRN PRN Reason: SBP > 160 Sodium Chloride () 250 mls @ 15 mls/hr IV .[id number] PRN PRN Reason: Saline Flush Sodium Chloride () 250 mls @ 15 mls/hr IV .[id number] PRN PRN Reason: Additional IVPB Infusion Metoprolol Tartrate (Lopressor (Beta Miryam)) 12.5 mg PO BID [facility] Last Admin: 11/01/19 10:43 Dose: 12.5 mg Documented by: Nitroglycerin (Nitrostat) 0.4 mg SUBLINGUAL Q5M PRN PRN Reason: CARDIAC/CHEST PAIN Ondansetron HCl (Zofran) 4 mg IV Q8H PRN PRN PRN Reason: NAUSEA/VOMITING Pantoprazole Sodium (Protonix) 40 mg PO DAILY [facility] Last Admin: 11/01/19 10:43 Dose: 40 mg Documented by: Pramipexole Dihydrochloride (Mirapex) 1.5 mg PO QHS [facility] Sodium Chloride () 10 - 40 ml IV UD PRN PRN Reason: SALINE FLUSH Discharge Diet: No Restrictions Discharge Activity: Return to Normal Activity Home Medications: Medications to take at Discharge Aspirin [Aspirin, Baby] 81 mg PO DAILY@0800 07/20/14 Fluoxetine [Prozac] 20 mg PO BID 07/20/14 Nitroglycerin (INPATIENT USE) [Nitrostat] 0.4 mg SUBLINGUAL Q5M PRN 10/19/14 Pantoprazole Sodium [Protonix] 40 mg PO DAILY #30 tab 03/07/17 cholecalciferol (vitamin D3) 25 mcg (1,000 unit) tablet 2,000 unit PO DAILY tab 11/28/17 clonazepam 0.5 mg tablet 1 mg PO QHS PRN PRN 11/28/17 ropinirole 2 mg tablet,extended release 24 hr 3 mg PO QHS 11/28/17 carbidopa 25 mg-levodopa 100 mg tablet 2 tab PO .3x/day tab 03/30/19 metoprolol tartrate 25 mg tablet 25 mg PO BID #180 tab 05/19/19 atorvastatin 40 mg tablet 40 mg PO QHS #90 tab 08/23/19 clopidogrel 75 mg tablet 75 mg PO DAILY #90 tab 08/24/19 Amlodipine Besylate [Norvasc] 5 mg PO DAILY 10/31/19 Mirtazapine [Remeron] 15 mg PO QHS 11/01/19 Primary Care Physician: Ghazala Leigh MD [Primary Care Provider] - Please follow up with your Primary Care Physician in: in 1 week Patient Instructions: CHEST PAIN, NonCardiac Disposition: Home Minutes spent on discharge:: 35 Patient Condition:: Stable Medical Necessity - Tobacco Use Smoking Status: Current every day smoker Tobacco Use: Cigarettes Meaningful Use Info Meaningful Use Diagnoses (Choose all that apply): None applicable Code Visit OBSV E&M: 28889 Observation care discharge
--- NOTE | 2019-11-01 12:59 | STRESSREP ---
Stress Test Report Pharmacologic myocardial perfusion stress test. 69-year-old lady with a history of known coronary artery disease presents with chest pain. Stress protocol: Resting EKG demonstrates normal sinus rhythm with a rate of 61 bpm normal intervals are noted resting blood pressure is 108/60 mmHg. 0.4 mg of regadenoson was infused per usual protocol followed by rapid intravenous saline flush injection continuous EKG monitoring was performed. Patient maintained sinus rhythm throughout the recording. At rest there were no ST or T wave changes noted suggest abnormal flow reserve at peak infusion nonspecific ST-T wave changes were noted with no suggest abnormal flow reserve. The resting blood pressure was 168/60 mmHg final blood pressure was 92/58 mmHg. Myocardial perfusion protocol. 11.7 mCi of technetium 99m sestamibi was injected at rest. 0.4 mg of regadenoson was infused per usual protocol peak infusion 35.0 mCi of technetium 99m sestamibi was injected stress images were obtained stress and rest images were reconstructed and compared in the short axis vertical and horizontal long axis. Gated images with were also obtained. Perfusion SPECT analysis: Review of the stress images demonstrate normal uptake of tracer noted in all areas of the myocardium the resting images similar demonstrate normal uptake of tracer noted in all areas of the myocardium. No reversibility is no suggest ischemia no previous infarct is noted. Gated SPECT analysis: The gated ejection fraction is noted to be 82%. Conclusion: Normal pharmacologic myocardial perfusion stress test. Preserved ejection fraction.
--- NOTE | 2019-11-01 14:38 | PHA.DC.MR ---
Pharmacy Service has performed discharge medication reconciliation for this patient. No new medications at time of discharge review. Medications reviewed are from previously reported home medications. Of note; did separate Sinemet order to reflect how patient takes at home since number of tablets are different at admin times. The patient's discharge medication list was reviewed for discrepancies and discrepancies were resolved. Home Medications Aspirin [Aspirin, Baby] 81 mg PO DAILY@0800 07/20/14 Fluoxetine [Prozac] 20 mg PO BID 07/20/14 Nitroglycerin (INPATIENT USE) [Nitrostat] 0.4 mg SUBLINGUAL Q5M PRN 10/19/14 Pantoprazole Sodium [Protonix] 40 mg PO DAILY #30 tab 03/07/17 cholecalciferol (vitamin D3) 25 mcg (1,000 unit) tablet 2,000 unit PO DAILY tab 11/28/17 clonazepam 0.5 mg tablet 1 mg PO QHS PRN PRN 11/28/17 ropinirole 2 mg tablet,extended release 24 hr 3 mg PO QHS 11/28/17 carbidopa 25 mg-levodopa 100 mg tablet 2 tab PO 0800,1200 tab 03/30/19 metoprolol tartrate 25 mg tablet 25 mg PO BID #180 tab 05/19/19 atorvastatin 40 mg tablet 40 mg PO QHS #90 tab 08/23/19 clopidogrel 75 mg tablet 75 mg PO DAILY #90 tab 08/24/19 Amlodipine Besylate [Norvasc] 5 mg PO DAILY 10/31/19 Carbidopa/Levodopa [Carbidopa-Levodopa 25-100 Tab] 1 tab PO 1600,1900 11/01/19 Mirtazapine [Remeron] 15 mg PO QHS 11/01/19
== END 2019-11-01 12:57 | disposition home or self-care (01) ==
LOC: ED 20:13 → PCU 23:45
PROVIDERS: Admitting Provider Hospitalist; Emergency Provider Emergency Medicine; PCP Family Medicine; Visit Provider Internal Medicine
DX: R07.89 Other chest pain (principal); I10 Essential (primary) hypertension; I25.118 Atherosclerotic heart disease of native coronary artery with other forms of angina pectoris; E78.5 Hyperlipidemia, unspecified; K21.9 Gastro-esophageal reflux disease without esophagitis; G20 Parkinson's disease; F32.9 Major depressive disorder, single episode, unspecified; F41.9 Anxiety disorder, unspecified; G47.33 Obstructive sleep apnea (adult) (pediatric); F17.210 Nicotine dependence, cigarettes, uncomplicated; Z95.5 Presence of coronary angioplasty implant and graft; Z79.899 Other long term (current) drug therapy; Z79.82 Long term (current) use of aspirin
CPT/HCPCS: 36415; 71045; 78452; 80048; 80061; 84484; 85025; 93005; 93017; 99218; 99285; A9500; A4216; G0378; J2785

== ENCOUNTER → 2019-11-15 07:36 | Outpatient (CLI) | payer MEDICARE, SELFPAY ==
[2019-10-31 22:20] VITALS: BMI 28.6
--- NOTE | 2019-11-15 07:39 | US_ITS ---
STUDY: ABDOMINAL ULTRASOUND - RIGHT UPPER QUADRANT REASON FOR VISIT: Female, 69 years old RUQ PAIN TECHNIQUE: Ultrasound evaluation of the right upper quadrant was performed with real-time and static ashton-scale imaging. TECHNICAL QUALITY: Adequate. COMPARISON: 03/21/2017 FINDINGS: Liver: The liver measures 13 cm. There is increased echogenicity of the liver. The bile ducts are within normal limits. There is hepatic color flow. The direction of portal flow is hepatopetal. There is no demonstrated mass lesion. Gallbladder: Normal distended gallbladder. The gallbladder wall measures 1.7 mm. There is a negative sonographic Eldridge''s sign. There is no pericholecystic fluid. There are no gallstones. Common Bile Duct (C.B.D.): The common bile duct measures 3.0 mm. Pancreas: There is increased echogenicity of the pancreas. There is no demonstrated pancreatic mass or cyst. Right Kidney: Normal size of the right kidney. The right kidney measures 9.1 x 4.3 x 5.0 cm. Normal renal cortex. The right cortex measures 1.1 cm. There is no demonstrated renal mass or cyst. There is no right hydronephrosis. US/Abdomen Limited IMPRESSION: 1. Stable exam. Hepatic steatosis. 2. No gallstones or biliary dilation. Electronically Signed: Kelby Dias MD ([place]oks) at 13:25 EST , Service support ,
== END ==
PROVIDERS: PCP Family Medicine; Referring Provider Family Medicine; Visit Provider Family Medicine
DX: R10.11 Right upper quadrant pain (principal)
CPT/HCPCS: 76705

== ENCOUNTER → 2019-11-26 11:58 | Outpatient (CLI) | payer MEDICARE, SELFPAY ==
[2019-10-31 22:20] VITALS: BMI 28.6
--- NOTE | 2019-11-26 12:05 | NM_ITS ---
CLINICAL: 69-year-old female with reported history of right upper quadrant abdominal pain. RADIONUCLIDE HEPATOBILIARY SCINTIGRAPHY COMPARISON: Abdominal ultrasound report 11/15/2019 FINDINGS: Following the intravenous administration of 5.5 mCi of 99m Tc Mebrofenin, hepatobiliary images reveal: 1. Relatively prompt and homogeneous radiopharmaceutical concentration is noted by a normal sized liver. No parenchymal defects are identified. 2. Gallbladder activity is identified at 30 minutes post radiopharmaceutical administration. 3. Small intestinal tract is observed by 60 minutes post tracer injection. 4. Washout of the radiopharmaceutical by the hepatic parenchyma appears qualitatively normal. Cholecystokinin (0.02 ug/kg) was administered intravenously over a 30-minute period. The post CCK gallbladder ejection fraction calculated at 20 minutes following Cholecystokinin administration was noted to be 11.0 % (normal greater than 35%). [place]/Hepatobilliary Img w/Pharm Int IMPRESSION: 1. ABNORMAL 99m Tc Mebrofenin hepatobiliary imaging examination with Cholecystokinin. A. A gallbladder ejection fraction calculated to be less than 35% following the administration of Cholecystokinin is consistent with the presence of functional hepatobiliary disease (gallbladder and/or sphincter of Oddi dyskinesia) and/or organic hepatobiliary disease (chronic acalculous cholecystitis and/or cystic duct syndrome) in patients with intermediate to high pretest probabilities of hepatobiliary illness. (Nadira Carcamo et al, Journal of Nuclear Medicine 32:1695, 1991). Electronically Signed: Papito Knapp DO at 12:50 EST Tel , Service support ,
== END ==
PROVIDERS: PCP Family Medicine; Referring Provider Family Medicine; Visit Provider Family Medicine
DX: R10.11 Right upper quadrant pain (principal)
CPT/HCPCS: 78227; A9537; J2805

== ENCOUNTER 2019-12-16 05:56 | Day surgery (SDC) | payer MEDICARE, SELFPAY ==
[2019-12-08 13:45] VITALS: BMI 28.6
--- NOTE | 2019-12-09 12:17 | HP_ITS ---
Intake Vital Signs 12/08/19 Height 5 ft 12/08/19 Weight: 152 lb 12/08/19 BMI 29.7 12/08/19 BP 117/67 12/08/19 Blood Pressure Location Rt brachial 12/08/19 Position Sitting 12/08/19 Respiration 18 Intake Visit Reasons: Abnormal Hida Scan [facility] 11/15 Chief Complaint: Follow-up visit. Airline Operations Agent Required: No Is patient in pain?: Yes (ruq abdominal pain) Allergies celecoxib [From Celebrex] Allergy (Verified 10/31/19 22:26) Unknown Opioids - Morphine Analogues Allergy (Verified 10/31/19 22:26) hallucinate promethazine HCl [From Phenergan] Adverse Reaction (Verified 10/31/19 22:26) Other Medications Aspirin [Aspirin, Baby] 81 mg PO DAILY@0800 07/20/14 [History Confirmed 12/08/19] Fluoxetine [Prozac] 20 mg PO BID 07/20/14 [History Confirmed 12/08/19] Pantoprazole Sodium [Protonix] 40 mg PO DAILY #30 tab 03/07/17 [Rx Confirmed 12/08/19] cholecalciferol (vitamin D3) 25 mcg (1,000 unit) tablet 2,000 unit PO DAILY tab 11/28/17 [History Confirmed 12/08/19] clonazepam 0.5 mg tablet 1 mg PO QHS PRN PRN 11/28/17 [History Confirmed 12/08/19] carbidopa 25 mg-levodopa 100 mg tablet 2 tab PO 0800,1200 tab 03/30/19 [History Confirmed 12/08/19] metoprolol tartrate 25 mg tablet 25 mg PO BID #180 tab 05/19/19 [Rx Confirmed 12/08/19] atorvastatin 40 mg tablet 40 mg PO QHS #90 tab 08/23/19 [Rx Confirmed 12/08/19] clopidogrel 75 mg tablet 75 mg PO DAILY #90 tab 08/24/19 [Rx Confirmed 12/08/19] Carbidopa/Levodopa [Carbidopa-Levodopa 25-100 Tab] 1 tab PO 1600,1900 11/01/19 [History Confirmed 12/08/19] nitroglycerin 0.4 mg sublingual tablet 0.4 mg SUBLINGUAL Q5M PRN #25 tab 11/03/19 [Rx Confirmed 12/08/19] amlodipine 5 mg tablet 5 mg PO DAILY #90 tab 11/24/19 [Rx Confirmed 12/08/19] loperamide 2 mg tablet 2 mg PO Q4H PRN 12/08/19 [History Confirmed 12/08/19] mirtazapine 15 mg tablet 30 mg PO QHS tab 12/08/19 [History Confirmed 12/08/19] ropinirole 2 mg tablet,extended release 24 hr 4 mg PO QHS tab 12/08/19 [History Confirmed 12/08/19] PFSH Medical History Essential (primary) hypertension (Chronic) Atherosclerotic heart disease of [place] coronary artery with other forms of angina pectoris (Chronic) History of anesthesia reaction (Acute) Anxiety (Chronic) Depression (Chronic) GERD (gastroesophageal reflux disease) (Chronic) HLD (hyperlipidemia) (Chronic) Irritable bowel syndrome (Chronic) Obesity (Chronic) Obstructive sleep apnea (Chronic) Parkinson disease (Chronic) Piriformis syndrome of left side (Chronic) REM sleep behavior disorder (Chronic) Strain of right piriformis muscle (Chronic) Surgical History History of coronary artery stent placement (Chronic 10/08/13) History of carpal tunnel release of both wrists (Resolved) History of cataract extraction (Resolved) History of hysterectomy (Resolved) History of left heart catheterization (Resolved 04/11/17) History of nasal polypectomy (Resolved) Family History Father CAD (coronary artery disease) Mother , age 78 CAD (coronary artery disease) Other Family history of hyperlipidemia Family history of hypertension Social History (Updated 12/09/19 @ 12:[address] Altaf Ramirez MD) Smoking Status: Current every day smoker alcohol intake: never caffeine: Yes Type: coffee Number of servings: 1 HPI HPI HPI: YVONNE LUCERO, is a 69 F who presents to the office today for HPI HPI Surgical H&P: Yes HPI: YVONNE LUCERO, is a 69 F who presents to the office today for Evaluation of a abnormal HIDA scan. Patient has been having right upper quadrant abdominal pain for better than a year. It really is associated with almost any foods that she eats. She has had no change in her bowel or bladder habits. HIDA scan with ejection fraction was obtained and showed an ejection fraction of 11%. She presents today for further evaluation and treatment. ROS General General: Yes fatigue; no weight change, appetite, colon cancer, breast cancer or weakness HEENT HEENT: Yes eye injury and eye surgery; no difficulty swallowing, swollen glands or hoarseness Endo Endocrine: No thyroid disease, diabetes mellitus, thyroid cancer, Hair loss, heat intolerance or cold intolerance Skin Skin: No rash or changing moles Breast Breast: No left breast lump, right breast lump, nipple discharge, breast pain, abnormal mammogram, abnormal US or breast enlargement Musc Musculoskeletal: No back problems, arthritis, rheumatoid arthritis, gout or joint pain Cardio Cardiovascular: Yes heart disease, high blood pressure and heart stent; no murmur, pacemaker, atrial fibrillation, heart attack, palpitations, shortness of breat with exertion or chest pain Psych Psychiatric: Yes depression and anxiety; no hearing voices Resp Respiratory: No shortness of breath, Yes sleep apnea, No cough, No COPD, No asthma, No emphysema, No wheezing Gastro Gastrointestinal: No abdominal pain, No nausea or vomiting, Yes diarrhea, No constipation, No blood in stool, Yes acid reflux, No hemorrhoids, No ulcers, Yes gallbladder problem, No black,tarry stools [place] Hematologic: Yes blood thinners, No blood disorders, No bleeding, No anemia, No blood clots Neuro Neurologic: No system reviewed and no additional complaints, except as docu, No as per HPI, No abnormal walking, No abnormal hearing, No abnormal movements, No abnormal speech, No behavioral changes, No burning sensations, No confusion, No seizure-like activity, No unsteadiness, No dizziness, No localized weakness, No frequent falls, No headache(s), No lack of coordination, No loss of vision, No memory loss, No numbness, No other visual disturbances, No radiating pain, No restless legs, No sensory deficit, No fainting, No tingling, No tremor(s), No weakness, No other Exam Const General: no acute distress, well developed, well hydrated Orientation: oriented to person, oriented to place, oriented to time [facility] Head: normocephalic, atraumatic Ears: external ears normal Mouth: moist mucous membranes Eyes Sclera: sclerae normal Pupils: normal by confrontation Neck Neck: no lymphadenopathy noted Neck mass: No Thyroid: thyroid normal, symmetrical Chest Chest palpation & inspection: normal inspection of the chest Breast Palpation: No nipple discharge Resp Effort & Inspection: normal respiratory effort Auscultation: clear to auscultation bilaterally Percussion: percussion normal Cardio Rate: regular rate Rhythm: regular rhythm Heart Sounds: no murmurs GI Palpation: soft, no hepatosplenomegaly, no masses, tender Auscultation: normal bowel sounds Rectal Exam: other Other: Rectal exam deferred. Extrem General: normal to inspection, no clubbing, cyanosis or edema Assessment & Plan Problems 1. Biliary dyskinesia K82.8 Plan Reviewed the anatomy with the patient and discussed the procedure: laparoscopic cholecystectomy with possible cholangiograms, possible open. Review risks including but not limited to bleeding, infection, hernia, bile leak, retained gallstones requiring another procedure ERCP- Endoscopic Retrograde Cholangiopancreatography, injury to another organ (bile ducts, common bile duct, small bowel, etc.) and conversion to an open procedure. All questions were answered. Coding Level of Care Code Off vis,new,level 3 Diagnoses Biliary dyskinesia K82.8 12/09/19 1219 <Electronically signed by Altaf han MD> Date _ Altaf Ramirez MD I have re-examined the patient. There are no clinical changes since date of exam.
[2019-12-10 15:05] VITALS: BP 108/46; PULSE 65; RESP 16; TEMP 36.6; O2SAT 94
[2019-12-16] VITALS (10 sets, daily range): BP systolic 103–136; BP diastolic 52–64; PULSE 51–68; RESP 16–18; TEMP 36.2–36.6; O2SAT 90–98; BMI 30.2
--- NOTE | 2019-12-16 06:03 | EKG12_ITS ---
Test Reason : PRE-OP Blood Pressure : / mmHG Vent. Rate : 054 BPM Atrial Rate : 054 BPM P-R Int : 154 ms QRS Dur : 082 ms QT Int : 432 ms P-R-T Axes : 025 -12 004 degrees QTc Int : [address] & T wave abnormality, consider anterolateral ischemia Abnormal ECG When compared with ECG of 01-NOV-2019 00:04, Nonspecific T wave abnormality now evident in Inferior leads Confirmed by TETE LOPEZ, ANIKA ([id number]), editor dictionary ANNA FRASER ([id number]) on 12/21/2019 7:54:49 AM Referred By: Altaf Ramirez Confirmed By:ANIKA EPSTEIN MD
[2019-12-16] MEDS: Lactated Ringers 1,000 ML 100 ML IV (06:42)
[2019-12-16] MEDS: Cefazolin 2 GM in 0.9% Normal Saline 100 ML IV (07:25)
--- NOTE | 2019-12-16 07:30 | GALL_PTH ---
PATIENT: YVONNE LUCERO LOC: [facility] U#:[id number] AGE/SX: 69/F ROOM: RE12/16/[address]: Dr. Altaf Ramirez MD : [id number] BED: DIS: 12/16/2019 SPEC #: [id number] RECD: 12/16/19 10:23 STATUS: VELMA RELuis F #: [id number] EMMANUEL: 12/16/19 07:[address]: Altaf Ramirez DEPT: SURGICAL PATHOLOGY RECD BY: Kishan Garcia ENTERED: 12/16/19 10:33 SP TYPE: ELIAZAR PERALTA DR: Dr. Ghazala Leigh MD Tissues: Gallbladder, NOS Procedures: Surgery Specimen Level III HEADER OPERATION: Laparoscopic cholecystectomy PRE-OP DIAGNOSIS: Biliary dyskinesia K82.8 TISSUE SUBMITTED: Gallbladder MICROSCOPIC DIAGNOSIS Gallbladder, cholecystectomy: Chronic cholecystitis. AM:moy 12/17/19 MICROSCOPIC DESCRIPTION Slides are reviewed. GROSS DESCRIPTION Received is one container labeled with the patient's name and designated gallbladder. The specimen consists of a gallbladder measuring 3 cm in length and up to 2.5 cm in diameter. The external surface is pink-reyna, smooth and glistening for the most part. Focally it is granular, hemorrhagic and contains cautery artifact. The gallbladder contains green-yellow mucoid bile. No stones are identified in the container or in the gallbladder. The mucosa is bile-stained and without any mass lesions. The gallbladder wall measures up to 0.1 cm in thickness. Reinforcing Steel Worker Wire Mesh sections from the gallbladder and the cystic duct are submitted in one cassette. / SJ:rg 12/16/19 TC:3 CPT: 06103
--- NOTE | 2019-12-16 07:32 | PCM.OPRPT ---
Problem List (1) Biliary dyskinesia Status: Acute Report of Operation Date of Procedure: 12/16/19 Pre-Operative Diagnosis: Biliary dyskinesia Post-Operative Diagnosis: Same Surgery/Procedure Performed:: Laparoscopic cholecystectomy Type of Anesthesia:: General Anesthesiologist: Milan Zuñiga Specimen's removed: Gallbladder Estimated Blood Loss (mL): < 25 cc Fluids Replaced: 700 cc LR Description of Procedure: Patient was brought into the operating room. Placed in the supine position. Under excellent general endotracheal ovation the abdomen was sterilely prepped and draped in usual fashion. Local was injected infraumbilically incision was made and dissection was carried down to the fascia. The fascia grasped with a Summer. Varies needle was placed inside the abdomen. The abdomen was insufflated to 15 torr. A 10/12 trocar was placed without difficulty. The patient was placed in the head up and rotated to the left position. A subxiphoid #5 trocar was placed, inferior to this another #5 trocar was placed, laterally a #5 trocar was placed. All these under direct visualization without injury to underlying structures. Fundus of the gallbladder was grasped retracted in a cephalad direction. The infundibulum was grasped and retracted laterally. I dissected out the cystic duct and placed 2 hemoclips on the duct and ligated in between them. Identified the cystic artery placed hemoclips proximally distally ligated the artery. Deliver the gallbladder off of the liver bed with use of electrocautery and had no spillage of bile. Placed a specimen a specimen bag delivered through the umbilical port without difficulty. Irrigated the right upper quadrant good mistakes was noted. Liver bed look good with good pneumostasis. Trochars were removed under direct visualization good pneumostasis was noted. Fascia the umbilical port was closed with [id number] stitch of 0 Vicryl. Skin incisions were closed with subcuticular stitches of 4-0 Monocryl. Steri-Strips were applied sterile dressings were applied and the patient tolerated the procedure well. - Admit VTE Documentation VTE Present on Admission: No VTE Mechan Device Prophylaxis: SCD's VTE Pharm Prophylaxis ordered?: No Reason prophylaxis not ordered:: Treatment Not Indicated
--- NOTE | 2019-12-16 07:33 | PCM.DC.GB ---
Discharge Diet: Light diet - advance as tolerated Discharge Activity: May Not Drive - for 2-3 days or while taking narcotic pain medications., - - Do not drive, work heavy equipment or sign legal documents for 24 hours. May shower in (days): 1 - with the bandage in place. Additional Activity Instructions:: Pain medication may cause nausea. You should typically eat light foods as you take your pain medications. Pain medication may also cause constipation. If this is a problem for you, please discuss with your doctor. Call your doctor if your incision/area has: Continuous Slow Oozing, Sudden Increased Bleeding, Increased Pain/ Swelling, Increased Redness, Foul Smelling Discharge Call your doctor if you observe: Fever of 101 or Higher Suture Line Care: Avoid Pulling/Pushing, Avoid Pinching/Bending Additional Dressing/Incision Instructions:: Leave operative bandaids on for 2 days. When you remove dressing, leave Steri-Strips on until your follow-up appointment, or until the Steri-Strips fall off on their own. Allergies/Adverse Reactions: Allergies celecoxib [From Celebrex] Allergy (Verified 12/16/19 06:20) Unknown fentanyl Allergy (Verified 12/16/19 06:20) Other HALLUCINATIONS Opioids - Morphine Analogues Allergy (Verified 12/16/19 06:20) hallucinate promethazine HCl [From Phenergan] Adverse Reaction (Verified 12/16/19 06:20) Other Medications to take at Discharge Aspirin [Aspirin, Baby] 81 mg PO DAILY@0800 07/20/14 Fluoxetine [Prozac] 20 mg PO BID 07/20/14 Pantoprazole Sodium [Protonix] 40 mg PO DAILY #30 tab 03/07/17 cholecalciferol (vitamin D3) 25 mcg (1,000 unit) tablet 2,000 unit PO DAILY tab 11/28/17 carbidopa 25 mg-levodopa 100 mg tablet 2 tab PO 0800,1200 tab 03/30/19 metoprolol tartrate 25 mg tablet 25 mg PO BID #180 tab 05/19/19 atorvastatin 40 mg tablet 40 mg PO QHS #90 tab 08/23/19 clopidogrel 75 mg tablet 75 mg PO DAILY #90 tab 08/24/19 Carbidopa/Levodopa [Carbidopa-Levodopa 25-100 Tab] 1 tab PO 1600,1900 11/01/19 nitroglycerin 0.4 mg sublingual tablet 0.4 mg SUBLINGUAL Q5M PRN #25 tab 11/03/19 mirtazapine 15 mg tablet 30 mg PO QHS tab 12/08/19 ropinirole 2 mg tablet,extended release 24 hr 4 mg PO QHS tab 12/08/19 Amlodipine Besylate [Norvasc] 1 mg PO DAILY 12/10/19 Clonazepam [Klonopin] 1 mg PO QHS 12/10/19 Oxycodone HCl/Acetaminophen [Percocet 5/325] 1 - 2 tablet PO Q4H PRN PRN 6 Days #30 tablet 12/16/19 The following prescriptions were given: Oxycodone HCl/Acetaminophen [Percocet 5/325] 1 - 2 tablet PO Q4H PRN PRN 6 Days #30 tablet PRN Reason: Pain Transmission Status: Sent to [facility] Primary Care Physician: Ghazala Leigh MD [Primary Care Provider] - Test Results: Test results from this visit will be discussed in further detail at your follow-up appointment, if applicable. Please Follow Up With: Apurva Kohler PA-C - Please call [phone] to schedule an appointment. When: 7 days after your surgery.
[2019-12-16] MEDS: Bupivacaine Mpf 0.5% 30 ML VIAL (07:56)
== END 2019-12-16 11:20 | disposition home or self-care (01) ==
LOC: SDC 05:57 → AC 05:58
PROVIDERS: PCP Family Medicine; Referring Provider Surgery; Visit Provider Surgery
PROC: (CPT 47562; principal; 2019-12-16 07:10)
DX: K81.1 Chronic cholecystitis (principal); I10 Essential (primary) hypertension; I25.10 Atherosclerotic heart disease of native coronary artery without angina pectoris; K21.9 Gastro-esophageal reflux disease without esophagitis; F41.9 Anxiety disorder, unspecified; F32.9 Major depressive disorder, single episode, unspecified; E78.5 Hyperlipidemia, unspecified; Z79.02 Long term (current) use of antithrombotics/antiplatelets; Z79.899 Other long term (current) drug therapy; Z79.82 Long term (current) use of aspirin; G47.33 Obstructive sleep apnea (adult) (pediatric); G20 Parkinson's disease; F17.200 Nicotine dependence, unspecified, uncomplicated
CPT/HCPCS: 00790; 47562; 88304; 93005; J7120; J2405

== ENCOUNTER → 2020-03-30 15:12 | Outpatient (CLI) | payer MEDICARE, SELFPAY ==
[2020-03-30 11:13] VITALS: BMI 29.5
[2020-03-30 17:14] LABS: Absolute Lymphocyte Count 1.42 X10^3/uL (0.83-4.51); Absolute Neutrophil Count 3.4 X10^3/uL (2.0-7.7); Basophil# 0.03 X10^3/uL; Basophil% 0.5 % (0-1); Eosinophil# 0.29 X10^3/uL; Eosinophils% 5.1 % (0-5); Hematocrit 44.2 % (37-47); Hemoglobin 14.3 g/dL (12.0-15.0); Lymphocyte # 1.42 X10^3/ul (4.0); Mean Corp Hgb Conc 32.4 g/dL (32-36); Mean Corpuscular Hgb 30.3 pg (27.0-32.0); Mean Corpuscular Volume 93.6 fL (81-99); Mean Platelet Vol. 11.7 fl (6.2-12.0); Monocyte# 0.52 X10^3/uL; Monocyte% 9.2 % (0-10); NRBC Flagged by Analyzer 0 % (0-5); Neutrophil % 59.8 % (47-70); Platelet Count 176 K/mm3 (150-450); RBC Distribution Width CV 13.2 % (11.6-14.6); RBC Distribution Width SD 45.5 fl (35.1-43.9); Red Blood Count 4.72 M/mm3 (4.2-5.4); White Blood Count 5.7 K/mm3 (4.4-11.0)
[2020-03-30 17:31] LABS: Anion Gap 7 (5-15); BUN 26 mg/dL (7-18); BUN/Creat Ratio 25.5 RATIO (10-20); Calcium,Total 8.8 mg/dL (8.5-10.1); Chloride 107 mmol/L (98-107); Creatinine, Serum 1.02 mg/dL (0.55-1.02); EST Glomerular Filtration Rate 57 mL/min (>60); Est Glom Filt Rate - Afr Amer 69 mL/min (>60); Glucose 91 mg/dL (74-106); Magnesium 2.1 mg/dL (1.6-2.6); Potassium 4.3 mmol/L (3.5-5.1); Sodium Level 139 mmol/L (136-145)
== END ==
PROVIDERS: PCP Family Medicine; Visit Provider Family Medicine
DX: R60.0 Localized edema (principal)
CPT/HCPCS: 36415; 80048; 83735; 85025

== ENCOUNTER → 2020-04-04 13:53 | Outpatient (CLI) | payer MEDICARE, SELFPAY ==
[2020-03-30 11:13] VITALS: BMI 29.5
--- NOTE | 2020-04-04 14:01 | US_ITS ---
STUDY: SUPERFICIAL ULTRASOUND - RIGHT AXILLAR REASON FOR EXAM: Female, 69 years old. Right axillary lump. TECHNIQUE: A superficial ultrasound was performed with real-time and static ashton-scale imaging. COMPARISON: None. FINDINGS: There are 2 sonographically normal-appearing lymph nodes noted in the right axilla, measuring 2.2 x 1.3 cm and 1.3 x 0.7 cm. There is no abnormal soft tissue mass or fluid collection identified. US/Ext Non Vasc Limited/Soft Tiss IMPRESSION: 2 sonographically normal-appearing lymph nodes in the right axilla. Electronically Signed: Donavan Bernabe, at 19:59 EDT Tel , Service support ,
== END ==
PROVIDERS: PCP Family Medicine; Referring Provider Family Medicine; Visit Provider Family Medicine
DX: R22.31 Localized swelling, mass and lump, right upper limb (principal)
CPT/HCPCS: 76882

== ENCOUNTER 2020-09-15 08:41 | Inpatient (IN) | payer MEDICARE, SELFPAY ==
[2020-03-30 11:13] VITALS: BMI 29.5
[2020-09-15] VITALS (12 sets, daily range): BP systolic 95–161; BP diastolic 46–68; PULSE 53–71; RESP 14–20; TEMP 36.1–36.9; O2SAT 94–100; BMI 29.5; BMI 28.3
--- NOTE | 2020-09-15 08:45 | CT_ITS ---
STUDY: CT CERVICAL SPINE WITHOUT CONTRAST REASON FOR EXAM: Female, 70 years old. FALL ON BLOOD THINNERS AND PARKINSONS RADIATION DOSAGE (If Supplied By Facility): CTDIvol = ( 31.64 ) mGy, DLP = ( 557.32 ) mGycm TECHNIQUE: High resolution transaxial imaging was performed without contrast material. Sagittal and coronal images were reconstructed. Individualized dose optimization techniques were used for this CT. COMPARISON: 07/05/2015 FINDINGS: Cervical straightening. No significant scoliosis. Craniocervical and atlantoaxial articulation intact. Odontoid intact. Minimal grade 1 spondylolisthesis at C4-5 and C6-7. Mild/moderate facet joint arthrosis. Multilevel disc height loss predominating at C4-5, C5-6 and C6-7. Multilevel mild neural foraminal narrowing. No significant central canal narrowing. No acute cervical spine fracture, dislocation or osseous destruction. Skull base intact. Symmetric mastoid air cells. Normal sinuses. Normal lung apices. Ribs intact. Visualized clavicles intact. No acute soft tissue process. CT/Spine Cervical without Contras IMPRESSION: Cervical spine acutely intact Cervical straightening with degenerative changes, as above Electronically Signed: Mark Toledo DO at 9:36 EST Tel , Service support ,
--- NOTE | 2020-09-15 08:45 | CT_ITS ---
STUDY: CT BRAIN WITHOUT CONTRAST REASON FOR EXAM: Female, 70 years old. FALL ON BLOOD THINNERS AND PARKINSONS RADIATION DOSAGE (If Supplied By Facility): CTDIvol = ( 60.81 ) mGy, DLP = ( 998.67 ) mGycm TECHNIQUE: Transaxial CT imaging of the brain was performed without administration of intravenous contrast material. Individualized dose optimization techniques were used for this CT. COMPARISON: 07/09/2015 FINDINGS: Small the posterior left parietal scalp hematoma. Normal calvarium. There is mild cerebral atrophy with widening of the extra-axial spaces and ventricular dilatation. There are areas of decreased attenuation within the white matter tracts of the supratentorial brain, consistent with microvascular disease changes. Normal basal ganglia and thalami. Normal brainstem. Normal cerebellum. There is no intracranial hemorrhage. There are no findings of an acute ischemic infarction. Normal visualized paranasal sinuses. CT/Brain/Head without Contrast IMPRESSION: Small posterior left parietal scalp hematoma. No intracranial hemorrhage. Electronically Signed: Papito Villanueva MD at 9:53 EST Tel , Service support ,
--- NOTE | 2020-09-15 08:48 | ED.DCSUM_ITS ---
History of Present Illness Chief Complaint: Head Injury Informant: Patient Onset: Today Context: Sudden Onset Timing: Continuous Current Severity: Moderate Maximum Severity: Moderate Narrative: The patient is a 70-year-old female who presents to the emergency department after a fall. Patient has history of Parkinson's and underlying gait dysfunction. She has been having recent medication changes because of frequent falls. She states that they have changed a few of her medications this week because of falls. Today, she was trying to ambulate. She lost her balance and fell. She struck her head. She does not think she lost consciousness. She is also complaining of pain in her hip and right knee. Patient is on aspirin and Plavix. History is hard to gather from the patient at baseline. Prior similar symptoms: Yes Recent Illness/Hospitalization: No Past Medical History - Allergies and Home Meds Allergies/Adverse Reactions: Allergies celecoxib [From Celebrex] Allergy (Verified 03/30/20 11:14) Unknown fentanyl Allergy (Verified 03/30/20 11:14) Other HALLUCINATIONS Opioids - Morphine Analogues Allergy (Verified 03/30/20 11:14) hallucinate promethazine HCl [From Phenergan] Adverse Reaction (Verified 03/30/20 11:14) Other Primary Care Physician: Ghazala Leigh MD [Primary Care Provider] - Prior records reviewed: Yes Past Medical History: - - Parkinson's disease Surgical History: - - Bilateral CT release, Cardiac stent placement 2007, 2013. Carpal tunnel surgery Smoking Status: Light Smoker (<10/day) - Family History Maternal Family History: Family History (Last Reviewed 03/30/20 @ 11:[address] Frandy Tarango MD) Father CAD (coronary artery disease) Mother CAD (coronary artery disease) Other Family history of hyperlipidemia Family history of hypertension Family History: Reports: Heart Disease Paternal Family History: Family History (Last Reviewed 03/30/20 @ 11:[address] Frandy Tarango MD) Father CAD (coronary artery disease) Mother CAD (coronary artery disease) Other Family history of hyperlipidemia Family history of hypertension Family History: Reports: Cancer, Heart Disease Review of Systems General: Denies: Chills, Fever, Sweats Eyes: Denies: Visual changes - bilaterally, Diplopia ENT: Denies: Rhinorrhea, Sore throat Cardiovascular: Denies: Chest pain, Palpitations Respiratory: Denies: Dyspnea, Cough, Dyspnea on exertion Gastrointestinal: Denies: Abdominal pain, Nausea, Vomiting, Diarrhea, Melena, Hematochezia Genitourinary: Denies: Dysuria, Hematuria, Frequency Musculoskeletal: Denies: Back pain, Extremity Pain Skin: Denies: Rash, Wounds Neurological: Denies: Headache, Weakness, Numbness Physical Exam Vital Signs/Narrative: Vital Signs Temp Pulse Resp BP Pulse Ox 09/15/20 08:42 97.3 F L 60 20 H 128/57 H 95 Inital Vital Signs reviewed: Yes General: Well nourished, Well developed, No Acute Distress Head: Normocephalic, Trauma - Small contusion over the right temporal area Eyes: Perrl, EOMI ENT: Moist mucous membranes, No rhinorrhea Neck: Supple, Nontender Cardiovascular: Regular rate, Regular rhythm, No murmurs Respiratory: No distress, CTA bilaterally, Chest nontender Abdomen: Soft, Nontender, Nondistended, Normal bowel sounds Back: Nontender, Normal Inspection Extremities: No edema, Tenderness - Mild pain with palpation of the right hip and right knee. Extension preserved. Normal pulses. Skin: Normal color, No rash Neurological: Alert, Oriented x3, Cranial nerves II-XII grossly intact, Normal Strength, Normal Sensation Psychological: Normal affect, Normal Mood Diagnostic/Tx/Re-eval Clinical Impression(s) from Imaging Studies Brain CT 09/15/20 08:45 IMPRESSION: Small posterior left parietal scalp hematoma. No intracranial hemorrhage. Electronically Signed: Papito Villanueva MD at 9:53 EST Tel , Service support , Cervical Spine CT 09/15/20 08:45 IMPRESSION: Cervical spine acutely intact Cervical straightening with degenerative changes, as above Electronically Signed: Mark Toledo DO at 9:36 EST Tel , Service support , Chest X-Ray 09/15/20 09:00 IMPRESSION: Hyperinflation. The lungs are clear. Electronically Signed: Nabil Wadsworth, at 9:54 EST , Service support , Hip/Pelvis X-Ray 09/15/20 09:00 IMPRESSION: No acute abnormality is seen. Electronically Signed: Nabil Alexrafykike, at 9:56 EST , Service support , Knee X-Ray 09/15/20 09:00 IMPRESSION: Right knee acutely intact Joint space narrowing predominating medially Extensive anterior soft tissue swelling/large hematoma formation (exclude distal quadriceps injury clinically) Electronically Signed: Mark Toledo, DO at 9:21 EST Tel , Service support , Abnormal Lab Results 09/15/20 09/15/20 09/15/20 08:50 09:30 09:30 WBC 5.1 RBC 4.44 Hgb 13.8 Hct 41.9 MCV 94.4 MCH 31.1 MCHC 32.9 RDW Std Deviation 46.8 H RDW Coeff of [place]ot 13.7 Plt Count 128 L MPV 12.4 H Immature Gran % (Auto) 0.200 Neut % (Auto) 67.0 Lymph % (Auto) 21.0 [place] % (Auto) 8.3 Eos % (Auto) 2.9 Baso % (Auto) 0.6 Absolute Neuts (auto) 3.4 Absolute Lymphs (auto) 1.07 Nucleated RBC % 0 Sodium Cancelled Potassium Cancelled Chloride Cancelled Carbon Dioxide Cancelled Anion Gap Cancelled BUN Cancelled Creatinine Cancelled Estim Creat Clear Calc Cancelled Est GFR (MDRD) Af Amer Cancelled Est GFR (MDRD) Non-Af Cancelled BUN/Creatinine Ratio Cancelled Glucose Cancelled Calcium Cancelled POC Glucose 107 09/15/20 10:35 WBC RBC Hgb Hct MCV MCH MCHC RDW Std Deviation RDW Coeff of [place] Plt Count MPV Immature Gran % (Auto) Neut % (Auto) Lymph % (Auto) [place] % (Auto) Eos % (Auto) Baso % (Auto) Absolute Neuts (auto) Absolute Lymphs (auto) Nucleated RBC % Sodium 142 Potassium 4.0 Chloride 110 H Carbon Dioxide 27.0 Anion Gap 5 BUN 15 Creatinine 0.92 Estim Creat Clear Calc 41.71 Est GFR (MDRD) Af Amer 77 Est GFR (MDRD) Non-Af 63 BUN/Creatinine Ratio 16.2 Glucose 95 Calcium 8.5 POC Glucose - Rhythm Strip Rhythm Strip: Sinus Rhythm Rate: 80 Ectopy: None - Medical Decision Making The patient presents with multiple falls. She does have significant history of Parkinson's with recent medication titration. Today, she fell and struck her head but did not lose consciousness. She has been unable to bear weight because of pain in her right knee. She is unable to extend the leg and there does not appear to be defect at the distal quad. Plain films were obtained of the pelvis knee and chest. These are relatively unremarkable. Clinically, the patient does have a distal quadricep tendon rupture. CT of the head and neck were also unremarkable. Screening labs are negative. I did discuss the patient's case with Dr. Jorge Jerez, on-call for orthopedics. He did state that she would likely need operative intervention, but not emergently. My concern is that the patient is very unsteady and now has a ruptured quadricep tendon and will be unable to bear weight. I do feel that she is likely going to need short-term rehab placement. The patient was discussed with the hospitalist. Impression 1. Frequent falls 2. Right distal quadricep tendon rupture 3. History of Parkinson's ED Disposition - Plan for ED Patient: Referrals: Ghazala Leigh MD [Primary Care Provider] -
[2020-09-15 09:00] LABS: Bedside Glucose 107 mg/dL (70-110)
--- NOTE | 2020-09-15 09:00 | RAD_ITS ---
STUDY: X-RAY CHEST REASON FOR EXAM: Female, 70 years old. MULTIPLE FALLS RECENTLY, BAD FALL THIS MORNING WITH PAIN TO RIGHT LEG AND LEFT HIP TECHNIQUE: Single AP portable view of the chest. COMPARISON: Comparison is made with prior study dated 10/31/2019. FINDINGS: EKG electrodes are seen. Hyperinflation. The lungs are clear. There is no demonstrated pleural abnormality. Normal size heart. Normal mediastinum and ivy. Normal visualized pulmonary arteries. There is atherosclerotic tortuosity of the aortic arch and descending thoracic aorta. Normal visualized thoracic spine. Normal visualized ribs, clavicles, and shoulders. There is no demonstrated abnormality of the visualized soft tissue structures of the upper abdomen. RAD/Chest 1 View (Portable) IMPRESSION: Hyperinflation. The lungs are clear. Electronically Signed: Nabil Wadsworth, at 9:54 EST , Service support ,
--- NOTE | 2020-09-15 09:00 | RAD_ITS ---
STUDY: X-RAY - PELVIS AND RIGHT HIP REASON FOR EXAM: Female, 70 years old. MULTIPLE FALLS RECENTLY, BAD FALL THIS MORNING WITH PAIN TO RIGHT LEG AND LEFT HIP TECHNIQUE: 3 views of the pelvis and hip. COMPARISON: None. FINDINGS: There is a non-specific bowel gas pattern. Normal visualized soft tissue structures. There is narrowing with cortical sclerosis and osteophyte formation of the sacroiliac joint consistent with degenerative osteoarthritic changes. Normal bilateral superior and inferior pubic rami. There is narrowing with sclerosis of the pubic symphysis. Normal bilateral ischial tuberosities. Normal visualized femoral head. Normal acetabulum. There is mild articular joint space narrowing of the hip. RAD/HIP, UNI W/ Pelvis 2-3 Views IMPRESSION: No acute abnormality is seen. Electronically Signed: Nabil Wadsworth, at 9:56 EST , Service support ,
--- NOTE | 2020-09-15 09:00 | RAD_ITS ---
STUDY: X-RAY - RIGHT KNEE REASON FOR EXAM: Female, 70 years old. MULTIPLE FALLS RECENTLY, BAD FALL THIS MORNING WITH PAIN TO RIGHT LEG AND LEFT HIP TECHNIQUE: 4 view(s) of the knee. COMPARISON: None. FINDINGS: No acute fracture, dislocation or osseous destruction. Mild medial compartment joint space narrowing. Lateral compartment preserved. Minimal patellofemoral joint space. Large anterior soft tissue swelling/hematoma formation at the suprapatellar region. Region of interest measures 7.3 cm. RAD/Knee 4 or More Views IMPRESSION: Right knee acutely intact Joint space narrowing predominating medially Extensive anterior soft tissue swelling/large hematoma formation (exclude distal quadriceps injury clinically) Electronically Signed: Mark Toledo DO at 9:21 EST Tel , Service support ,
[2020-09-15 09:34] LABS: Absolute Lymphocyte Count 1.07 X10^3/uL (0.83-4.51); Absolute Neutrophil Count 3.4 X10^3/uL (2.0-7.7); Basophil# 0.03 X10^3/uL; Basophil% 0.6 % (0-1); Eosinophil# 0.15 X10^3/uL; Eosinophils% 2.9 % (0-5); Hematocrit 41.9 % (37-47); Hemoglobin 13.8 g/dL (12.0-15.0); Lymphocyte # 1.07 X10^3/ul (4.0); Mean Corp Hgb Conc 32.9 g/dL (32-36); Mean Corpuscular Hgb 31.1 pg (27.0-32.0); Mean Corpuscular Volume 94.4 fL (81-99); Mean Platelet Vol. 12.4 fl (6.2-12.0); Monocyte# 0.42 X10^3/uL; Monocyte% 8.3 % (0-10); NRBC Flagged by Analyzer 0 % (0-5); Neutrophil # 3.41 X10^3/uL (2.7-7.7); Platelet Count 128 K/mm3 (150-450); RBC Distribution Width CV 13.7 % (11.6-14.6); RBC Distribution Width SD 46.8 fl (35.1-43.9); Red Blood Count 4.44 M/mm3 (4.2-5.4); White Blood Count 5.1 K/mm3 (4.4-11.0)
--- NOTE | 2020-09-15 09:51 | NURSING ---
CHEMISTRIES GROSSLY HEMOLIZED
--- NOTE | 2020-09-15 10:23 | ED.RN ---
pt called out crying and wanting pain meds. ordered tylenol es but when attempted to take it pt crying so hard and wanting something else stronger dr. gramajo in at bedside and aware. pain intermittant with severe burning like spasms. attempted to calm pt to take tylenol while waits for another pain med but unable.
[2020-09-15] MEDS: Acetaminophen 500 MG Tablet 1000 MG PO (10:36)
[2020-09-15] MEDS: oxyCODONE 5 MG Tablet PO ×2 (10:36→16:36)
[2020-09-15 10:59] LABS: Anion Gap 5 (5-15); BUN 15 mg/dL (7-18); BUN/Creat Ratio 16.2 RATIO (10-20); Calcium,Total 8.5 mg/dL (8.5-10.1); Chloride 110 mmol/L (98-107); Creatinine, Serum 0.92 mg/dL (0.55-1.02); EST Glomerular Filtration Rate 63 mL/min (>60); Est Glom Filt Rate - Afr Amer 77 mL/min (>60); Estimated Creatinine Clearance 41.71 ml/min; Glucose 95 mg/dL (74-106); Sodium Level 142 mmol/L (136-145)
--- NOTE | 2020-09-15 11:00 | ED.RN ---
contact pt's ani with updates at [phone]
[2020-09-15 11:08] LABS: Mucous, Urine 0 SEEN /hpf (<or=2+)
[2020-09-15 11:12] LABS: Color, Urine Yellow (Yellow); Glucose, Dipstick Normal (Normal); Ketone-Dipstick 5 mg/dl (Negative); Leukocyte Esterase-Dipstick 100 /ul (Negative); Nitrite-Dipstick Positive (Negative); Occult Blood-Urine 10 /ul (Negative); Protein-Dipstick 15 mg/dl (Negative); Urine Bilirubin Dipstick Negative (Negative); Urine Clarity Sl. Cloudy (Clear); Urine Urobilinogen Normal (Normal)
--- NOTE | 2020-09-15 11:17 | NURSING ---
MED SURG QUAD TENDON RUPTURE, FREQUENT FALLS ASHELFAH
[2020-09-15 11:18] LABS: Bacteria 2+ /hpf (None Seen); Red Blood Cells-Urine 0-5 SEEN /hpf (0-5); Squamous Epithelial Cells - UA 0-5 SEEN /hpf (5-10); White Blood Cells 10-25 SEEN /hpf (0-5)
[2020-09-15] MEDS: Ceftriaxone 1 GM/50 ML BAG IV (12:19)
[2020-09-15] MEDS: 0.9% Normal Saline 1,000 ML 75 ML IV (13:15)
--- NOTE | 2020-09-15 14:01 | PCM.HP.STD ---
Problem List (1) Acute right quadriceps injury Status: Acute (2) Acute cystitis Status: Acute (3) Frequent falls Status: Acute (4) Physical debility Status: Acute (5) Hyperlipidemia Status: Chronic (6) Parkinsons disease Status: Chronic (7) Atherosclerotic heart disease of [place] coronary artery with other forms of angina pectoris Status: Chronic (8) History of coronary artery stent placement Status: Chronic Comment: PCI-AGUSTO to RCA 02/19/2008; PCI-GAUSTO-Mid LAD 10/08/2013 (9) Essential (primary) hypertension Status: Chronic (10) HLD (hyperlipidemia) Status: Chronic Qualifiers: Hyperlipidemia type: pure hypercholesterolemia Qualified Code(s): E78.00 - Pure hypercholesterolemia, unspecified; E78.0 - Pure hypercholesterolemia History of Present Illness Date of Admission: 09/15/20 Chief Complaint: Fall. The patient is a 70 year old F with past medical history as mentioned above presented to the emergency room because of fall. This morning, patient had a mechanical fall at home, lost her balance and she went down. She struck her head on the right side and she had minimal bruising. She denied any prodromal symptoms such as chest pain, shortness of breath, dizziness or lightheadedness. She denies syncope or presyncope. She did mention that sometimes, she gets lightheaded but not today. She will history of Parkinson's disease with underlying gait dysfunction and her neurologist adjusted her medications last night because of frequent falls. History of CAD status post stents and she has been on aspirin, Plavix and statins as well as metoprolol. She had a history of hypertension which has been under control with metoprolol. She will history of Parkinson's disease, has been on Sinemet and mirtazapine and her neurologist has been adjusting her medication recently for frequent falls. In the emergency department, her blood pressure was slight elevated, she was bradycardic with heart rate on the mid 50s, other vital signs are stable. Routine blood work was unremarkable. Urinalysis revealed cloudy urine, positive for nitrite, there was 100 leukocyte esterase, 10-25 WBCs and 2+ bacteria. CT scan brain revealed small posterior left parietal scalp hematoma, no intracranial hemorrhage. CT scan cervical spine showed no acute fractures or dislocations. Chest x-ray showed no acute findings. X-ray of the pelvis and right hip showed no acute fractures. X-ray of the right knee revealed no acute fractures, showed extensive anterior soft tissue swelling/large hematoma with possible distal quadriceps injury. She is being admitted for acute cystitis, frequent falls/physical debility/functional decline, closed head injury, right knee hematoma with right quadriceps injury/possible rupture. Past Medical History Past Medical History (Chronic Problems): Chronic Problems (Last Reviewed 03/30/20 @ 11:[address] Frandy Tarango MD) Hyperlipidemia (Chronic) Parkinsons disease (Chronic) Atherosclerotic heart disease of [place] coronary artery with other forms of angina pectoris (Chronic) History of coronary artery stent placement (Chronic 10/08/13) PCI-AGUSTO to RCA 02/19/2008; PCI-AGUSTO-Mid LAD 10/08/2013 Essential (primary) hypertension (Chronic) HLD (hyperlipidemia) (Chronic) Medical History: Medical History (Last Reviewed 03/30/20 @ 11:[address] Frandy Tarango MD) Atherosclerotic heart disease of [place] coronary artery with other forms of angina pectoris (Chronic) I25.118 Essential (primary) hypertension (Chronic) I10 HLD (hyperlipidemia) (Chronic) E78.5 Anxiety F41.9 Depression F32.9 GERD (gastroesophageal reflux disease) K21.9 History of anesthesia reaction Z87.898 Irritable bowel syndrome Obesity E66.9 Obstructive sleep apnea G47.33 Parkinson disease G20 Piriformis syndrome of left side G57.02 REM sleep behavior disorder G47.52 Strain of right piriformis muscle S76.311A Biliary dyskinesia K82.8 Allergies celecoxib [From Celebrex] Allergy (Verified 09/15/20 12:53) Itching fentanyl Allergy (Verified 03/30/20 11:14) Other HALLUCINATIONS Opioids - Morphine Analogues Allergy (Verified 03/30/20 11:14) hallucinate promethazine HCl [From Phenergan] Adverse Reaction (Verified 09/15/20 12:53) hallucinate Home Medications: Ambulatory Orders Medication Instructions Recorded Aspirin [Aspirin, Baby] 81 mg PO DAILY@0800 07/20/14 Fluoxetine [Prozac] 20 mg PO BID 07/20/14 Pantoprazole Sodium [Protonix] 40 mg PO DAILY #30 tab 03/07/17 cholecalciferol (vitamin D3) 25 2,000 unit PO DAILY tab 11/28/17 mcg (1,000 unit) tablet carbidopa 25 mg-levodopa 100 mg 2 tab PO 0800,1200 tab 03/30/19 tablet Carbidopa/Levodopa 1 tab PO 1600,1900 11/01/19 [Carbidopa-Levodopa 25-100 Tab] nitroglycerin 0.4 mg sublingual 0.4 mg SUBLINGUAL Q5M PRN #25 tab 11/03/19 tablet Clonazepam [Klonopin] 1 mg PO QHS 12/10/19 metoprolol tartrate 25 mg tablet 25 mg PO BID #180 tab 02/17/20 ascorbic acid (vitamin C) 1,000 mg 1 g PO DAILY tab 03/30/20 tablet glucosamine HCl 750 mg tablet 750 mg PO DAILY tab 03/30/20 mirtazapine 30 mg tablet 30 mg PO QHS tab 03/30/20 atorvastatin 40 mg tablet 40 mg PO QHS #90 tab 08/16/20 clopidogrel 75 mg tablet 75 mg PO DAILY #90 tab 08/17/20 Polyethylene Glycol 3350 [Miralax] 17 gm PO DAILY 09/15/20 Surgical History: Surgical History (Last Updated 09/15/20 @ 14:[address] Delbert Edwards MD) History of coronary artery stent placement (Chronic) Onset Date: 10/08/13 Z95.5 PCI-AGUSTO to RCA 02/19/2008; PCI-AGUSTO-Mid LAD 10/08/2013 History of carpal tunnel release of both wrists Z98.890 History of cataract extraction Z98.49 bilateral History of cholecystectomy Onset Date: 12/16/19 Z90.49 History of hysterectomy Z90.710 History of left heart catheterization Onset Date: 04/11/17 Z98.890 08/02/2008 ,10/08/2013, 04/11/2017 History of nasal polypectomy Z98.890, Z87.09 Surgical History: - - Cardiac stent placement 2007, 2013. 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 Delbert Edwards MD) Father CAD (coronary artery disease) Mother CAD (coronary artery disease) Other Family history of hyperlipidemia Family history of hypertension History Items: Heart Disease Paternal Family History: Family History (Last Reviewed 09/15/20 @ 14:[address] Delbert Edwards MD) Father CAD (coronary artery disease) Mother CAD (coronary artery disease) Other Family history of hyperlipidemia Family history of hypertension History Items: Heart Disease Review of Systems Constitutional: Denies: Anorexia, Chills, Fever, Weakness, Fatigue Eyes: Denies: Blurred vision, Double vision, Drainage, Redness HEENT: Denies: Difficulty Hearing, Dysphasia, Ear Pain, Eye Pain, Nasal Congestion, Sore Throat Cardiovascular: Reports: Light Headedness. Denies: Chest Pain, Claudication, Chest Tightness, Edema, Heaviness, Palpitations, Syncope Respiratory: Denies: Cough, Pleuritic Pain, Shortness of Breath, Sputum production, Wheezing Gastrointestinal: Denies: Abdominal Pain, Constipation, Diarrhea, Nausea, Vomiting Genitourinary: Denies: Dysuria, Frequency, Hematuria Musculoskeletal: Reports: Joint Pain. Denies: Arm Pain, Back Pain, Foot Pain Skin: Denies: Dryness, Rash Neurological: Reports: Balance problems. Denies: Change in Speech, Slurred speech, Confusion, Focal weakness, Incoordination, Numbness Psychiatric: Reports: Depression. Denies: Anxiety Endocrine: Denies: Change in Body Habitus, Polydipsia, Polyuria VTE Information - Inpt Only VTE Present on Admission: No VTE Mechan Device Prophylaxis: None VTE Pharm Prophylaxis ordered?: Yes Patient Problems: Active and Suspected Problems (Last Reviewed 03/30/20 @ 11:[address] Frandy Tarango MD) Acute right quadriceps injury (Acute) Acute cystitis (Acute) Frequent falls (Acute) Physical debility (Acute) - Physical Exam Vitals/I&O's: Vital Signs Temp Pulse Resp BP Pulse Ox 97.5 F L 53 L 18 161/68 H 98 09/15/20 13:42 09/15/20 13:42 09/15/20 13:42 09/15/20 13:42 09/15/20 13:42 Oxygen Delivery Method Room Air Weight: 150 lb Body Mass Index (BMI) 28.3 Intake and Output for Last 24 Hours 09/13/20 09/14/20 09/15/20 23:59 23:59 23:59 Intake Total 50 / 50 Balance 50 / 50 General: Alert, Oriented x3, Cooperative, No apparent distress HEENT: PERRLA, EOMI, - - Traumatic, small left parietal scalp hematoma, bruises on the right mandible and right zygomatic arch. Oral: Moist Mucosa, No Gingival or Mucosal Lesions/ Ulcerations Neck: Supple, No JVD, Trachea Midline, Thyroid Normal Size and Texture Lungs: Clear to auscultation, Normal air movement, No rhonchi, No wheeze, No rales Cardiovascular: Regular rate, Regular Rhythm, Normal S1, Normal S2, PMI Normal, Bradycardic Abdomen: Bowel Sounds Present, Soft, Non Tender, Non-Distended, No Hepato-splenomegaly Extremities: No clubbing, No cyanosis, No edema Skin: No rashes, No breakdown Lymphatic: No Cervical, Supraclavicular, or Inguinal Adenopathy Neurological: Cranial nerves II-XII grossly intact, Motor Exam 5/5 strength throughout, - - Difficulty lifting right upper extremity because of pain. Psych/Mental Status: Normal Affect, Appropriate, Alert and oriented to time, place, person, mood and affect Laboratory Results 09/15/20 08:50: POC Glucose 107 09/15/20 09:30: WBC 5.1, RBC 4.44, Hgb 13.8, Hct 41.9, MCV 94.4, MCH 31.1, MCHC 32.9, RDW Std Deviation 46.8 H, RDW Coeff of [place] 13.7, Plt Count 128 L, MPV 12.4 H, Immature Gran % (Auto) 0.200, Neut % (Auto) 67.0, Lymph % (Auto) 21.0, [place] % (Auto) 8.3, Eos % (Auto) 2.9, Baso % (Auto) 0.6, Absolute Neuts (auto) 3.4, Absolute Lymphs (auto) 1.07, Nucleated RBC % 0 09/15/20 09:30: Sodium Cancelled, Potassium Cancelled, Chloride Cancelled, Carbon Dioxide Cancelled, Anion Gap Cancelled, BUN Cancelled, Creatinine Cancelled, Estim Creat Clear Calc Cancelled, Est GFR (MDRD) Af Amer Cancelled, Est GFR (MDRD) Non-Af Cancelled, BUN/Creatinine Ratio Cancelled, Glucose Cancelled, Calcium Cancelled 09/15/20 10:35: Sodium 142, Potassium 4.0, Chloride 110 H, Carbon Dioxide 27.0, Anion Gap 5, BUN 15, Creatinine 0.92, Estim Creat Clear Calc 41.71, Est GFR (MDRD) Af Amer 77, Est GFR (MDRD) Non-Af 63, BUN/Creatinine Ratio 16.2, Glucose 95, Calcium 8.5 09/15/20 11:04: Urine Color Yellow, Urine Clarity Sl. Cloudy, Urine pH 6.0, Ur Specific [place] 1.020, Urine Protein 15 H, Urine Glucose (UA) Normal, Urine Ketones 5 H, Urine Occult Blood 10 H, Urine Nitrite Positive H, Urine Bilirubin Negative, Urine Urobilinogen Normal, Ur Leukocyte Esterase 100 H, Urine RBC 0-5 SEEN, Urine WBC 10-25 SEEN, Ur Squamous Epith Cells 0-5 SEEN, Urine Bacteria 2+, Urine Mucus 0 SEEN Clinical Impression(s) from Imaging Studies Brain CT 09/15/20 08:45 IMPRESSION: Small posterior left parietal scalp hematoma. No intracranial hemorrhage. Electronically Signed: Papito Villanueva MD at 9:53 EST Tel , Service support , Cervical Spine CT 09/15/20 08:45 IMPRESSION: Cervical spine acutely intact Cervical straightening with degenerative changes, as above Electronically Signed: Mark Toledo DO at 9:36 EST Tel , Service support , Chest X-Ray 09/15/20 09:00 IMPRESSION: Hyperinflation. The lungs are clear. Electronically Signed: Nabil Wadsworth, at 9:54 EST , Service support , Hip/Pelvis X-Ray 09/15/20 09:00 IMPRESSION: No acute abnormality is seen. Electronically Signed: Nabil Wadsworth, at 9:56 EST , Service support , Knee X-Ray 09/15/20 09:00 IMPRESSION: Right knee acutely intact Joint space narrowing predominating medially Extensive anterior soft tissue swelling/large hematoma formation (exclude distal quadriceps injury clinically) Electronically Signed: Mark Paris, DO at 9:21 EST Tel , Service support , Current Medications Acetaminophen (Acetaminophen 325 Mg Tablet) 650 mg PO Q6H PRN PRN PRN Reason: Pain Score 1-10/Temp > 100.7 F Aspirin (Aspirin 81 Mg Tab.Chew) 81 mg PO DAILY@0800 YENIFER Atorvastatin Calcium (Atorvastatin Calcium 40 Mg Tablet) 40 mg PO QHS YENIFER Carbidopa/Levodopa (Carbidopa/Levodopa 25/100 Tablet) 1 tablet PO 1600,1900 YENIFER Carbidopa/Levodopa (Carbidopa/Levodopa 25/100 Tablet) 2 tablet PO 0800,1200 YENIFER Clonazepam (Clonazepam 1 Mg Tablet) 1 mg PO QHS [facility] Clopidogrel Bisulfate (Clopidogrel Bisulfate 75 Mg Tablet) 75 mg PO DAILY YENIFER Enoxaparin Sodium (Enoxaparin 40 Mg/0.4 Ml Syringe) 40 mg SC DAILY YENIFER Fluoxetine HCl (Fluoxetine 20 Mg Capsule) 20 mg PO BID YENIFER Sodium Chloride () 250 mls @ 15 mls/hr IV .[id number] PRN PRN Reason: Saline Flush Sodium Chloride () 1,000 mls @ 75 mls/hr IV .[id number] YENIFER Stop: 09/16/20 02:03 Last Admin: 09/15/20 13:15 Dose: 75 mls/hr Documented by: Ceftriaxone Sodium (Rocephin) 1 gm in 50 mls @ 100 mls/hr IV Q24 YENIFER Metoprolol Tartrate (Metoprolol Tartrate 25 Mg Tablet) 12.5 mg PO BID YENIFER Mirtazapine (Mirtazapine 30 Mg Tablet) 30 mg PO QHS YENIFER Ondansetron HCl (Ondansetron 4 Mg/2 Ml Vial) 4 mg IV Q8H PRN PRN PRN Reason: NAUSEA/VOMITING Oxycodone HCl (Oxycodone 5 Mg Tablet) 5 mg PO Q6H PRN PRN PRN Reason: Pain Score 4-10 Pantoprazole Sodium (Pantoprazole Sodium 40 Mg Tablet) 40 mg PO DAILY YENIFER Senna/Docusate Sodium (Senna/Docusate Sodium 1 Tablet) 2 tablet PO BID PRN PRN PRN Reason: Constipation Sodium Chloride (0.9% Saline Lock 10 Ml Syringe) 10 - 40 ml IV UD PRN PRN Reason: SALINE FLUSH Zolpidem Tartrate (Zolpidem Tartrate 5 Mg Tablet) 5 mg PO QHS PRN PRN PRN Reason: INSOMNIA Assessment/Plan All Active Problems (Last Reviewed 03/30/20 @ 11:[address] Frandy Tarango MD) Acute right quadriceps injury (Acute) Acute cystitis (Acute) Frequent falls (Acute) Physical debility (Acute) This is a 70 years old female patient presented to the emergency room because of fall, found to have closed head injury, scalp hematoma, right knee hematoma, right quadriceps injury and acute cystitis. #1 physical debility/functional decline/frequent falls: Multifactorial secondary to age and Parkinson's disease. Her PCP has been adjusting her Parkinson's indications for frequent falls. Imaging reviewed as below. Patient has been having intermittent lightheadedness, she has been slightly bradycardic. She is on metoprolol 25 mg p.o. twice daily. Plan: Admit to [facility] floor, telemetry, ambulate as tolerated, pain control, PT OT, repeat CBC and CMP tomorrow morning, [facility] need [facility]. #2 closed head injury/scalp hematoma: Due to mechanical fall. CT scan brain reviewed, revealed scalp hematoma, no acute intracranial bleed. She does have bruises on the right side of her face. She is not on anticoagulation. Will check her pro time and INR. #3 right quadriceps injury/possible tendon rupture: Due to mechanical fall. She is having difficulties lifting her right lower extremity, painful. X-ray of the right knee reviewed, no fractures. Plan: OxyIR as needed for pain, Tylenol as needed, orthopedic surgery consult. #4 acute cystitis: Start IV Rocephin, urine culture, IV fluids, input output chart. #5 CAD status post stents: Stable, no complaints. Plan: EKG routine, decrease metoprolol to 12.5 mg p.o. daily because of mild bradycardia, continue aspirin, statins, Plavix. #6 hypertension: Blood pressure slight elevated, continue metoprolol as above, IV hydralazine as needed. #7 Parkinson's disease: Continue Sinemet and mirtazapine. #8 anxiety/depression: Continue Klonopin, Prozac and mirtazapine. #9 hyperlipidemia: Continue statins. #10 DVT prophylaxis: Subcu Lovenox. This note was generated with [employer] dictation software. It may contain incorrect words, spelling, and punctuation that were not noted in checking the note before signing. Inpatient E&M: 79932 Init Hosp L2
--- NOTE | 2020-09-15 14:34 | EKG12_ITS ---
Test Reason : Blood Pressure : / mmHG Vent. Rate : 059 BPM Atrial Rate : 059 BPM P-R Int : 132 ms QRS Dur : 088 ms QT Int : 440 ms P-R-T Axes : 022 018 151 degrees QTc Int : [address] & T wave abnormality, consider anterolateral ischemia Abnormal ECG Confirmed by JOHNATHON LOPEZ, LIZ ([id number]), assistant editor ANNA FRASER ([id number]) on 09/19/2020 12:38:48 PM Referred By: VIDYA Confirmed By:LIZ DIEGO MD
[2020-09-15] MEDS: Carbidopa/Levodopa 25/100 Tablet PO ×2 (16:36→18:41)
[2020-09-15] MEDS: Acetaminophen 325 MG Tablet 650 MG PO (16:36)
[2020-09-15 17:01] LABS: International Normalized Ratio 1.3; Prothrombin Time (Protime)PT. 15.7 SECONDS (11.7-14.9)
--- NOTE | 2020-09-15 18:40 | PCS.PANDOC ---
PANDEMIC DOCUMENTATION INITIATED: Date:09/15/20 Time: 1846
[2020-09-15] MEDS: FLUoxetine 20 MG Capsule PO (21:39)
[2020-09-15] MEDS: clonazePAM 1 MG Tablet PO (21:39)
[2020-09-15] MEDS: Mirtazapine 30 MG Tablet PO (21:40)
[2020-09-15] MEDS: Atorvastatin Calcium 40 MG Tablet PO (21:40)
[2020-09-16] VITALS (12 sets, daily range): BP systolic 94–158; BP diastolic 30–65; PULSE 51–76; RESP 16–18; TEMP 36.4–36.9; O2SAT 95–97
--- NOTE | 2020-09-16 08:34 | PCM.PROGNOTE ---
Patient Problems: Active and Suspected Problems (Last Reviewed 03/30/20 @ 11:[address] Frandy Tarango MD) Acute right quadriceps injury (Acute) Acute cystitis (Acute) Frequent falls (Acute) Physical debility (Acute) Subjective: Chief complaint: Follow-up after admission for acute cystitis, right quadriceps injury, physical debility and closed head injury. Patient seen and examined. No acute events overnight. Patient denied any right knee pain today. She feels okay, no specific complaints. Her vital signs are stable. - Physical Exam Vitals/I&O's: Vital Signs Temp Pulse Resp BP Pulse Ox 98.2 F 52 L 18 147/55 H 95 09/16/20 02:45 09/16/20 02:59 09/16/20 02:45 09/16/20 02:45 09/16/20 02:45 Oxygen Delivery Method Room Air Weight: 150 lb Body Mass Index (BMI) 28.3 Intake and Output for Last 24 Hours 09/14/20 09/15/20 09/16/20 23:59 23:59 23:59 Intake Total 530 / 530 1000 / 1000 Output Total 275 / 275 250 / 250 Balance 255 / 255 750 / 750 General: Alert, Oriented x3, Cooperative, No apparent distress HEENT: Atraumatic, PERRLA, EOMI, Normocephalic Oral: Moist Mucosa, No Gingival or Mucosal Lesions/ Ulcerations Neck: Supple, No JVD, Negative Carotid Bruits, Trachea Midline, Thyroid Normal Size and Texture Lungs: Clear to auscultation, Normal air movement, No rhonchi, No wheeze, No rales Cardiovascular: Regular rate, Regular Rhythm, Normal S1, Normal S2, PMI Normal Abdomen: Bowel Sounds Present, Soft, Non Tender, Non-Distended, No Hepato-splenomegaly Extremities: No clubbing, No cyanosis, No edema Skin: No rashes, No breakdown Lymphatic: No Cervical, Supraclavicular, or Inguinal Adenopathy Neurological: Cranial nerves II-XII grossly intact, Neuro grossly intact Psych/Mental Status: Appropriate, Flat Affect, Alert and oriented to time, place, person, mood and affect Laboratory Results 09/15/20 08:50: POC Glucose 107 09/15/20 09:30: WBC 5.1, RBC 4.44, Hgb 13.8, Hct 41.9, MCV 94.4, MCH 31.1, MCHC 32.9, RDW Std Deviation 46.8 H, RDW Coeff of Navjot 13.7, Plt Count 128 L, MPV 12.4 H, Immature Gran % (Auto) 0.200, Neut % (Auto) 67.0, Lymph % (Auto) 21.0, Wagoner % (Auto) 8.3, Eos % (Auto) 2.9, Baso % (Auto) 0.6, Absolute Neuts (auto) 3.4, Absolute Lymphs (auto) 1.07, Nucleated RBC % 0 09/15/20 09:30: Sodium Cancelled, Potassium Cancelled, Chloride Cancelled, Carbon Dioxide Cancelled, Anion Gap Cancelled, BUN Cancelled, Creatinine Cancelled, Estim Creat Clear Calc Cancelled, Est GFR (MDRD) Af Amer Cancelled, Est GFR (MDRD) Non-Af Cancelled, BUN/Creatinine Ratio Cancelled, Glucose Cancelled, Calcium Cancelled 09/15/20 10:35: Sodium 142, Potassium 4.0, Chloride 110 H, Carbon Dioxide 27.0, Anion Gap 5, BUN 15, Creatinine 0.92, Estim Creat Clear Calc 41.71, Est GFR (MDRD) Af Amer 77, Est GFR (MDRD) Non-Af 63, BUN/Creatinine Ratio 16.2, Glucose 95, Calcium 8.5 09/15/20 11:04: Urine Color Yellow, Urine Clarity Sl. Cloudy, Urine pH 6.0, Ur Specific [place] 1.020, Urine Protein 15 H, Urine Glucose (UA) Normal, Urine Ketones 5 H, Urine Occult Blood 10 H, Urine Nitrite Positive H, Urine Bilirubin Negative, Urine Urobilinogen Normal, Ur Leukocyte Esterase 100 H, Urine RBC 0-5 SEEN, Urine WBC 10-25 SEEN, Ur Squamous Epith Cells 0-5 SEEN, Urine Bacteria 2+, Urine Mucus 0 SEEN 09/15/20 16:16: PT 15.7 H, INR 1.3 Current Medications Acetaminophen (Acetaminophen 325 Mg Tablet) 650 mg PO Q6H PRN PRN PRN Reason: Pain Score 1-10/Temp > 100.7 F Last Admin: 09/15/20 16:36 Dose: 650 mg Documented by: Aspirin (Aspirin 81 Mg Tab.Chew) 81 mg PO DAILY@0800 [facility] Atorvastatin Calcium (Atorvastatin Calcium 40 Mg Tablet) 40 mg PO QHS [facility] Last Admin: 09/15/20 21:40 Dose: 40 mg Documented by: Carbidopa/Levodopa (Carbidopa/Levodopa 25/100 Tablet) 1 tablet PO 1600,1900 [facility] Last Admin: 09/15/20 18:41 Dose: 1 tablet Documented by: Carbidopa/Levodopa (Carbidopa/Levodopa 25/100 Tablet) 2 tablet PO 0800,1200 [facility] Clonazepam (Clonazepam 1 Mg Tablet) 1 mg PO QHS [facility] Last Admin: 09/15/20 21:39 Dose: 1 mg Documented by: Clopidogrel Bisulfate (Clopidogrel Bisulfate 75 Mg Tablet) 75 mg PO DAILY [facility] Enoxaparin Sodium (Enoxaparin 40 Mg/0.4 Ml Syringe) 40 mg SC DAILY [facility] Fluoxetine HCl (Fluoxetine 20 Mg Capsule) 20 mg PO BID [facility] Last Admin: 09/15/20 21:39 Dose: 20 mg Documented by: Hydralazine HCl (Hydralazine 20 Mg/Ml Vial) 10 mg IV Q8H PRN PRN PRN Reason: for SBP>160 Sodium Chloride () 250 mls @ 15 mls/hr IV .[id number] PRN PRN Reason: Saline Flush Ceftriaxone Sodium (Rocephin) 1 gm in 50 mls @ 100 mls/hr IV Q24 [facility] Metoprolol Tartrate (Metoprolol Tartrate 25 Mg Tablet) 12.5 mg PO BID [facility] Last Admin: 09/15/20 21:35 Dose: Not Given Documented by: Mirtazapine (Mirtazapine 30 Mg Tablet) 30 mg PO QHS [facility] Last Admin: 09/15/20 21:40 Dose: 30 mg Documented by: Ondansetron HCl (Ondansetron 4 Mg/2 Ml Vial) 4 mg IV Q8H PRN PRN PRN Reason: NAUSEA/VOMITING Oxycodone HCl (Oxycodone 5 Mg Tablet) 5 mg PO Q6H PRN PRN PRN Reason: Pain Score 4-10 Last Admin: 09/15/20 16:36 Dose: 5 mg Documented by: Pantoprazole Sodium (Pantoprazole Sodium 40 Mg Tablet) 40 mg PO DAILY [facility] Senna/Docusate Sodium (Senna/Docusate Sodium 1 Tablet) 2 tablet PO BID PRN PRN PRN Reason: Constipation Sodium Chloride (0.9% Saline Lock 10 Ml Syringe) 10 - 40 ml IV UD PRN PRN Reason: SALINE FLUSH Zolpidem Tartrate (Zolpidem Tartrate 5 Mg Tablet) 5 mg PO QHS PRN PRN PRN Reason: INSOMNIA Medical Necessity - Tobacco Use Smoking Status: Former smoker Tobacco Use: Cigarettes Assessment/Plan All Active Problems (Last Reviewed 03/30/20 @ 11:[address] Frandy Tarango MD) Acute right quadriceps injury (Acute) Acute cystitis (Acute) Frequent falls (Acute) Physical debility (Acute) This is a 70 years old female patient presented to the emergency room because of fall, found to have closed head injury, scalp hematoma, right knee hematoma, right quadriceps injury and acute cystitis. #1 physical debility/functional decline/frequent falls: Multifactorial secondary to age and Parkinson's disease. Imaging studies reviewed as below. Her vitals are stable. Plan for PT OT evaluation and treatment, placement to group home facility. #2 closed head injury/scalp hematoma: Due to mechanical fall. CT scan brain reviewed, revealed scalp hematoma, no acute intracranial bleed. She does have bruises on the right side of her face. She is not on anticoagulation. INR is 1.3, close to normal. #3 right quadriceps injury/possible tendon rupture: Due to mechanical fall. Today, she denied right thigh or knee pain. She is on OxyIR as needed for pain. She is having difficulties lifting her right lower extremity, painful. X-ray of the right knee reviewed, no fractures. Awaiting orthopedic surgery recommendations. #4 acute cystitis: She is on IV Rocephin, urine culture is pending. #5 CAD status post stents: Stable, no complaints. Stable, continue metoprolol, aspirin, statins and Plavix. #6 hypertension: Blood pressure has been fluctuating, continue metoprolol as above, IV hydralazine as needed. #7 Parkinson's disease: Continue Sinemet and mirtazapine. #8 anxiety/depression: Continue Klonopin, Prozac and mirtazapine. #9 hyperlipidemia: Continue statins. #10 DVT prophylaxis: Subcu Lovenox. This note was generated with [employer] dictation software. It may contain incorrect words, spelling, and punctuation that were not noted in checking the note before signing. Inpatient E&M: 98581 Subs Hosp L2
[2020-09-16] MEDS: Aspirin 81 MG TAB.CHEW PO (08:39)
[2020-09-16] MEDS: Carbidopa/Levodopa 25/100 Tablet PO ×4 (08:39→19:22)
[2020-09-16] MEDS: FLUoxetine 20 MG Capsule PO ×2 (09:52→21:48)
[2020-09-16] MEDS: Ceftriaxone 1 GM/50 ML BAG IV (09:52)
[2020-09-16] MEDS: Enoxaparin 40 MG/0.4 ML Syringe SC (09:52)
[2020-09-16] MEDS: Clopidogrel Bisulfate 75 MG Tablet PO (09:52)
[2020-09-16] MEDS: Pantoprazole Sodium 40 MG Tablet PO (09:52)
[2020-09-16] MEDS: 0.9% Saline Lock 10 ML Syringe IV (09:53)
[2020-09-16] MEDS: Metoprolol Tartrate 25 MG Tablet 12.5 MG PO ×2 (09:53→21:48)
[2020-09-16] MEDS: oxyCODONE 5 MG Tablet PO ×2 (12:18→21:48)
[2020-09-16] MEDS: Senna/Docusate Sodium 1 Tablet 2 TABLET PO ×2 (12:18→21:47)
--- NOTE | 2020-09-16 13:52 | CASEMGMT ---
SW spoke w/pt regarding prior level of function and anticipated discharge plan. PCP: Dr. Leigh Specialists: Neurology, Dr. Mcguire and Cardiology, Dr. Tarango Insurance: [employer] Medicare Pharmacy: [facility] LW/POA: Pt reports is POA, not on file here however. LNOK: , three daughters. Daughters are in [facility] and [place] Living arrangements/prior level of function: Pt living at home w/ in one floor home. Pt was very independent up until a couple of weeks ago. Pt explains she started blacking out, has blacked out 6 times. This time she fell and hurt herself. Normally she is independent with all ADLs, cooking, cleaning, shopping, organizing meds, driving, personal care. Her has been helping the last couple of weeks with cooking, cleaning and shopping. DME: Pt has a walker, cane, and shower chair. Pt doesn't normally use the DME but has been using the walker and cane the last two weeks. HHC/SNF/Rehab: Pt has been to [facility] Rehab unit in the past, has never had HHC and not been to a SNF in the past. SW spoke w/pt, she expressed frustration with getting in to see the neurologist in a timely fashion, and jaelyn wanted to do a virtual visit which she did not want to do. She states now she has been sitting here for two days waiting for the orthopedic physician to see her. SW offered support to pt. SW explained will let the RN know to see if she can find out when the doctor will be here. Plan: TBD. GÉNESIS spoke w/pt about discharge plan. Pt states if needed she would go to rehab, states she is not going to a intermediate while COVID is going on. GÉNESIS/CM will continue to follow for appropriate discharge plan. MARCELL Villarreal
--- NOTE | 2020-09-16 14:26 | NURSING ---
Dr. Reed paged by this nurse after GÉNESIS Villarreal informed this nurse that pt getting upset that Dr. Reed has not come to see her yet. Dr. Reed called back said he would be coming to see her tomorrow 09/17/20. Dr. Reed also stated that he did talk with the ED doctor about this pt but never knew he was officially consulted. All the above was mentioned to pt's primary nurse, CECIL Sotelo.
[2020-09-16] MEDS: Acetaminophen 325 MG Tablet 650 MG PO ×2 (15:13→21:47)
[2020-09-16] MEDS: Atorvastatin Calcium 40 MG Tablet PO (21:49)
[2020-09-16] MEDS: Mirtazapine 30 MG Tablet PO (21:49)
[2020-09-16] MEDS: clonazePAM 1 MG Tablet PO (21:52)
[2020-09-17] VITALS (12 sets, daily range): BP systolic 91–176; BP diastolic 35–78; PULSE 54–96; RESP 16–18; TEMP 36.5–36.8; O2SAT 92–98
--- NOTE | 2020-09-17 08:11 | PCM.PROGNOTE ---
Patient Problems: Active and Suspected Problems (Last Reviewed 03/30/20 @ 11:[address] Frandy Tarango MD) Acute right quadriceps injury (Acute) Acute cystitis (Acute) Frequent falls (Acute) Physical debility (Acute) Subjective: Chief complaint: Follow-up after admission for acute cystitis, right quadriceps injury, physical debility and closed head injury. Patient seen and examined. No acute events overnight. She denied any significant complaints. She is refusing to go to senior living. Her vital signs are stable. - Physical Exam Vitals/I&O's: Vital Signs Temp Pulse Resp BP Pulse Ox 98.3 F 54 L 18 150/78 H 98 09/17/20 04:00 09/17/20 04:00 09/17/20 04:00 09/17/20 04:00 09/17/20 04:00 Oxygen Delivery Method Room Air Weight: 150 lb Body Mass Index (BMI) 28.3 Intake and Output for Last 24 Hours 09/15/20 09/16/20 09/17/20 23:59 23:59 23:59 Intake Total 530 / 530 1751.00 / 1751.00 700 / 700 Output Total 275 / 275 1000 / 1000 950 / 950 Balance 255 / 255 751.00 / 751.00 -250 / -250 General: Alert, Oriented x3, Cooperative, No apparent distress HEENT: PERRLA, EOMI, Normocephalic, EAC Clear Oral: Moist Mucosa, No Gingival or Mucosal Lesions/ Ulcerations Neck: Supple, No JVD, Negative Carotid Bruits, Trachea Midline, Thyroid Normal Size and Texture Lungs: Clear to auscultation, Normal air movement, No rhonchi, No wheeze, No rales Cardiovascular: Regular rate, Regular Rhythm, Normal S1, Normal S2, PMI Normal Abdomen: Bowel Sounds Present, Soft, Non Tender, Non-Distended, No Hepato-splenomegaly Extremities: No clubbing, No cyanosis, No edema, - - Right knee: Swelling, ecchymosis. Skin: No rashes, No breakdown Lymphatic: No Cervical, Supraclavicular, or Inguinal Adenopathy Neurological: Cranial nerves II-XII grossly intact, - - Difficulty lifting her right upper extremity due to right quadriceps injury Psych/Mental Status: Appropriate, Flat Affect, Alert and oriented to time, place, person, mood and affect Microbiology Past 72 Hours 09/15/20 11:04 Urine Catheter - Catheter Urine Culture - Final Presumptive E. coli Current Medications Acetaminophen (Acetaminophen 325 Mg Tablet) 650 mg PO Q6H PRN PRN PRN Reason: Pain Score 1-10/Temp > 100.7 F Last Admin: 09/16/20 21:47 Dose: 650 mg Documented by: Aspirin (Aspirin 81 Mg Tab.Chew) 81 mg PO DAILY@0800 [facility] Last Admin: 09/16/20 08:39 Dose: 81 mg Documented by: Atorvastatin Calcium (Atorvastatin Calcium 40 Mg Tablet) 40 mg PO QHS [facility] Last Admin: 09/16/20 21:49 Dose: 40 mg Documented by: Carbidopa/Levodopa (Carbidopa/Levodopa 25/100 Tablet) 1 tablet PO 1600,1900 [facility] Last Admin: 09/16/20 19:22 Dose: 1 tablet Documented by: Carbidopa/Levodopa (Carbidopa/Levodopa 25/100 Tablet) 2 tablet PO 0800,1200 [facility] Last Admin: 09/16/20 12:18 Dose: 2 tablet Documented by: Clonazepam (Clonazepam 1 Mg Tablet) 1 mg PO QHS [facility] Last Admin: 09/16/20 21:52 Dose: 1 mg Documented by: Clopidogrel Bisulfate (Clopidogrel Bisulfate 75 Mg Tablet) 75 mg PO DAILY [facility] Last Admin: 09/16/20 09:52 Dose: 75 mg Documented by: Enoxaparin Sodium (Enoxaparin 40 Mg/0.4 Ml Syringe) 40 mg SC DAILY [facility] Last Admin: 09/16/20 09:52 Dose: 40 mg Documented by: Fluoxetine HCl (Fluoxetine 20 Mg Capsule) 20 mg PO BID [facility] Last Admin: 09/16/20 21:48 Dose: 20 mg Documented by: Hydralazine HCl (Hydralazine 20 Mg/Ml Vial) 10 mg IV Q8H PRN PRN PRN Reason: for SBP>160 Sodium Chloride () 250 mls @ 15 mls/hr IV .[id number] PRN PRN Reason: Saline Flush Last Infusion: 09/16/20 10:40 Dose: 0 mls/hr Documented by: Metoprolol Tartrate (Metoprolol Tartrate 25 Mg Tablet) 12.5 mg PO BID [facility] Last Admin: 09/16/20 21:48 Dose: 12.5 mg Documented by: Mirtazapine (Mirtazapine 30 Mg Tablet) 30 mg PO QHS [facility] Last Admin: 09/16/20 21:49 Dose: 30 mg Documented by: Ondansetron HCl (Ondansetron 4 Mg/2 Ml Vial) 4 mg IV Q8H PRN PRN PRN Reason: NAUSEA/VOMITING Oxycodone HCl (Oxycodone 5 Mg Tablet) 5 mg PO Q6H PRN PRN PRN Reason: Pain Score 4-10 Last Admin: 09/16/20 21:48 Dose: 5 mg Documented by: Pantoprazole Sodium (Pantoprazole Sodium 40 Mg Tablet) 40 mg PO DAILY [facility] Last Admin: 09/16/20 09:52 Dose: 40 mg Documented by: Senna/Docusate Sodium (Senna/Docusate Sodium 1 Tablet) 2 tablet PO BID PRN PRN PRN Reason: Constipation Last Admin: 09/16/20 21:47 Dose: 2 tablet Documented by: Sodium Chloride (0.9% Saline Lock 10 Ml Syringe) 10 - 40 ml IV UD PRN PRN Reason: SALINE FLUSH Last Admin: 09/16/20 09:53 Dose: 20 ml Documented by: Zolpidem Tartrate (Zolpidem Tartrate 5 Mg Tablet) 5 mg PO QHS PRN PRN PRN Reason: INSOMNIA Medical Necessity - Tobacco Use Smoking Status: Former smoker Tobacco Use: Cigarettes Assessment/Plan All Active Problems (Last Reviewed 03/30/20 @ 11:[address] Frandy Tarango MD) Acute right quadriceps injury (Acute) Acute cystitis (Acute) Frequent falls (Acute) Physical debility (Acute) This is a 70 years old female patient presented to the emergency room because of fall, found to have closed head injury, scalp hematoma, right knee hematoma, right quadriceps injury and acute cystitis. #1 physical debility/functional decline/frequent falls: Multifactorial secondary to age and Parkinson's disease. Imaging studies reviewed as below. Her vitals are stable. Today, patient mentioned that she is refusing to go to [facility] facility and she thinks that she can go back home. I informed the patient that this depends on how she does, what orthopedic surgery recommends and how she will do with physical therapy. #2 closed head injury/scalp hematoma: Stable, it is due to mechanical fall. CT scan brain reviewed, revealed scalp hematoma, no acute intracranial bleed. She does have bruises on the right side of her face. She is not on anticoagulation. INR is 1.3, close to normal. #3 right quadriceps injury/possible tendon rupture: Due to mechanical fall. She is on OxyIR as needed for pain. She is having difficulties lifting her right lower extremity, painful. X-ray of the right knee reviewed, no fractures. Appreciate orthopedic surgery recommendations. MRI of the right femur ordered. Cardiology consulted regarding stopping the Plavix as patient may go for surgical repair. #4 acute cystitis: She is on IV Rocephin, urine culture showed E. coli, pansensitive. Plan to stop IV Rocephin, start p.o. ciprofloxacin. #5 CAD status post stents: Stable, no complaints. Stable, continue metoprolol, aspirin, statins and Plavix. Cardiology consulted to see if we can stop Plavix as patient may go for surgery. #6 hypertension: Blood pressure has been fluctuating probably due to autonomic dysfunction due to Parkinson's disease, continue metoprolol as above, IV hydralazine as needed. #7 Parkinson's disease: Continue Sinemet and mirtazapine. #8 anxiety/depression: Continue Klonopin, Prozac and mirtazapine. #9 hyperlipidemia: Continue statins. #10 DVT prophylaxis: Subcu Lovenox. This note was generated with [employer] dictation software. It may contain incorrect words, spelling, and punctuation that were not noted in checking the note before signing. Inpatient E&M: 71434 Subs Hosp L2
[2020-09-17] MEDS: Aspirin 81 MG TAB.CHEW PO (08:30)
[2020-09-17] MEDS: Carbidopa/Levodopa 25/100 Tablet PO ×4 (08:31→18:35)
--- NOTE | 2020-09-17 09:27 | CON.PCM_ITS ---
Reason for Consult Date of Consultation: 09/17/20 Reason for Consultation: Right leg pain s/p fall History of Present Illness: The patient is a 70 year old F [with history of Parkinson's and recent change of medicine fell at home. she was evaluated by the ED physician and the hospita list and felt to have a right quadriceps tendon tear. She was placed in an immobilizer and admitted to the hospital due to inability to ambulate and the significant chance of further falls. At the time of my evaluation, she reports right leg pain and inability to lift her leg against gravity or resistance.] Past Medical History Past Medical History (Chronic Problems): Chronic Problems (Last Reviewed 03/30/20 @ 11:[address] Frandy Tarango MD) Hyperlipidemia (Chronic) Parkinsons disease (Chronic) Atherosclerotic heart disease of [place] coronary artery with other forms of angina pectoris (Chronic) History of coronary artery stent placement (Chronic 10/08/13) PCI-AGUSTO to RCA 02/19/2008; PCI-AGUSTO-Mid LAD 10/08/2013 Essential (primary) hypertension (Chronic) HLD (hyperlipidemia) (Chronic) Medical History: Medical History (Last Reviewed 03/30/20 @ 11:[address] Frandy Tarango MD) Atherosclerotic heart disease of [place] coronary artery with other forms of angina pectoris (Chronic) I25.118 Essential (primary) hypertension (Chronic) I10 HLD (hyperlipidemia) (Chronic) E78.5 Anxiety F41.9 Depression F32.9 GERD (gastroesophageal reflux disease) K21.9 History of anesthesia reaction Z87.898 Irritable bowel syndrome Obesity E66.9 Obstructive sleep apnea G47.33 Parkinson disease G20 Piriformis syndrome of left side G57.02 REM sleep behavior disorder G47.52 Strain of right piriformis muscle S76.311A Biliary dyskinesia K82.8 Allergies celecoxib [From Celebrex] Allergy (Verified 09/15/20 12:53) Itching fentanyl Allergy (Verified 03/30/20 11:14) Other HALLUCINATIONS Opioids - Morphine Analogues Allergy (Verified 03/30/20 11:14) hallucinate promethazine HCl [From Phenergan] Adverse Reaction (Verified 09/15/20 12:53) hallucinate Home Medications: Ambulatory Orders Medication Instructions Recorded Aspirin [Aspirin, Baby] 81 mg PO DAILY@0800 10/15/14 Fluoxetine [Prozac] 20 mg PO BID 07/20/14 Pantoprazole Sodium [Protonix] 40 mg PO DAILY #30 tab 03/07/17 cholecalciferol (vitamin D3) 25 2,000 unit PO DAILY tab 11/28/17 mcg (1,000 unit) tablet carbidopa 25 mg-levodopa 100 mg 2 tab PO 0800,1200 tab 03/30/19 tablet Carbidopa/Levodopa 1 tab PO 1600,1900 11/01/19 [Carbidopa-Levodopa 25-100 Tab] nitroglycerin 0.4 mg sublingual 0.4 mg SUBLINGUAL Q5M PRN #25 tab 11/03/19 tablet Clonazepam [Klonopin] 1 mg PO QHS 12/10/19 metoprolol tartrate 25 mg tablet 25 mg PO BID #180 tab 02/17/20 ascorbic acid (vitamin C) 1,000 mg 1 g PO DAILY tab 03/30/20 tablet glucosamine HCl 750 mg tablet 750 mg PO DAILY tab 03/30/20 mirtazapine 30 mg tablet 30 mg PO QHS tab 03/30/20 atorvastatin 40 mg tablet 40 mg PO QHS #90 tab 08/16/20 clopidogrel 75 mg tablet 75 mg PO DAILY #90 tab 08/17/20 Polyethylene Glycol 3350 [Miralax] 17 gm PO DAILY 09/15/20 Surgical History: Surgical History (Last Updated 09/15/20 @ 14:[address] Delbert Edwards MD) History of coronary artery stent placement (Chronic) Onset Date: 10/08/13 Z95.5 PCI-AGUSTO to RCA 02/19/2008; PCI-AGUSTO-Mid LAD 10/08/2013 History of carpal tunnel release of both wrists Z98.890 History of cataract extraction Z98.49 bilateral History of cholecystectomy Onset Date: 12/16/19 Z90.49 History of hysterectomy Z90.710 History of left heart catheterization Onset Date: 04/11/17 Z98.890 08/02/2008 ,10/08/2013, 04/11/2017 History of nasal polypectomy Z98.890, Z87.09 Surgical History: - - Cardiac stent placement 2007, 2013. Carpal tunnel surgery Psychiatric History: Anxiety, Depression ALLOPATHIC DOCTOR History: No pertinent ALLOPATHIC DOCTOR history, - Lives: Spouse/ Significant Other Smoking Status: Former smoker Tobacco Use: Cigarettes Alcohol: None Drugs: None - *Family History Maternal Family History: Family History (Last Reviewed 09/15/20 @ 14:[address] Delbert Edwards MD) Father CAD (coronary artery disease) Mother CAD (coronary artery disease) Other Family history of hyperlipidemia Family history of hypertension History Items: Heart Disease Paternal Family History: Family History (Last Reviewed 09/15/20 @ 14:[address] Delbert Edwards MD) Father CAD (coronary artery disease) Mother CAD (coronary artery disease) Other Family history of hyperlipidemia Family history of hypertension History Items: Heart Disease Review of Systems Musculoskeletal: Reports: Leg Pain - rle Patient Problems: Active and Suspected Problems (Last Reviewed 03/30/20 @ 11:[address] Frandy Tarango MD) Acute right quadriceps injury (Acute) Acute cystitis (Acute) Frequent falls (Acute) Physical debility (Acute) - Physical Exam Vitals/I&O's: Vital Signs Temp Pulse Resp BP Pulse Ox 97.9 F 60 16 176/64 H 95 09/17/20 08:24 09/17/20 08:24 09/17/20 08:24 09/17/20 08:24 09/17/20 08:24 Oxygen Delivery Method Room Air Weight: 150 lb Body Mass Index (BMI) 28.3 Intake and Output for Last 24 Hours 09/15/20 09/16/20 09/17/20 23:59 23:59 23:59 Intake Total 530 / 530 1751.00 / 1751.00 700 / 700 Output Total 275 / 275 1000 / 1000 950 / 950 Balance 255 / 255 751.00 / 751.00 -250 / -250 General: Alert, Oriented x3, Cooperative, No apparent distress Musculoskeletal: Tenderness - to palpation above right patella with a palpable defect of the quad tendon. She is unable to extend her knee against resistance or gravity Neurological: Unsteady Gait - secondary to Parkinson's and right quad tendon rupture Psych/Mental Status: Normal Affect, Appropriate Microbiology Past 72 Hours 09/15/20 11:04 Urine Catheter - Catheter Urine Culture - Final Presumptive E. coli Current Medications Acetaminophen (Acetaminophen 325 Mg Tablet) 650 mg PO Q6H PRN PRN PRN Reason: Pain Score 1-10/Temp > 100.7 F Last Admin: 09/16/20 21:47 Dose: 650 mg Documented by: Aspirin (Aspirin 81 Mg Tab.Chew) 81 mg PO DAILY@0800 [facility] Last Admin: 09/17/20 08:30 Dose: 81 mg Documented by: Atorvastatin Calcium (Atorvastatin Calcium 40 Mg Tablet) 40 mg PO QHS [facility] Last Admin: 09/16/20 21:49 Dose: 40 mg Documented by: Carbidopa/Levodopa (Carbidopa/Levodopa 25/100 Tablet) 1 tablet PO 1600,1900 [facility] Last Admin: 09/16/20 19:22 Dose: 1 tablet Documented by: Carbidopa/Levodopa (Carbidopa/Levodopa 25/100 Tablet) 2 tablet PO 0800,1200 [facility] Last Admin: 09/17/20 08:31 Dose: 2 tablet Documented by: Ciprofloxacin HCl (Ciprofloxacin 500 Mg Tablet) 500 mg PO BID [facility] Clonazepam (Clonazepam 1 Mg Tablet) 1 mg PO QHS [facility] Last Admin: 09/16/20 21:52 Dose: 1 mg Documented by: Clopidogrel Bisulfate (Clopidogrel Bisulfate 75 Mg Tablet) 75 mg PO DAILY [facility] Last Admin: 09/16/20 09:52 Dose: 75 mg Documented by: Enoxaparin Sodium (Enoxaparin 40 Mg/0.4 Ml Syringe) 40 mg SC DAILY [facility] Last Admin: 09/16/20 09:52 Dose: 40 mg Documented by: Fluoxetine HCl (Fluoxetine 20 Mg Capsule) 20 mg PO BID [facility] Last Admin: 09/16/20 21:48 Dose: 20 mg Documented by: Hydralazine HCl (Hydralazine 20 Mg/Ml Vial) 10 mg IV Q8H PRN PRN PRN Reason: for SBP>160 Sodium Chloride () 250 mls @ 15 mls/hr IV .[id number] PRN PRN Reason: Saline Flush Last Infusion: 09/16/20 10:40 Dose: 0 mls/hr Documented by: Iopamidol (Contrast Allergy Safety Check) 0 ml IV X1 [facility] Metoprolol Tartrate (Metoprolol Tartrate 25 Mg Tablet) 12.5 mg PO BID [facility] Last Admin: 09/16/20 21:48 Dose: 12.5 mg Documented by: Mirtazapine (Mirtazapine 30 Mg Tablet) 30 mg PO QHS [facility] Last Admin: 09/16/20 21:49 Dose: 30 mg Documented by: Ondansetron HCl (Ondansetron 4 Mg/2 Ml Vial) 4 mg IV Q8H PRN PRN PRN Reason: NAUSEA/VOMITING Oxycodone HCl (Oxycodone 5 Mg Tablet) 5 mg PO Q6H PRN PRN PRN Reason: Pain Score 4-10 Last Admin: 09/16/20 21:48 Dose: 5 mg Documented by: Pantoprazole Sodium (Pantoprazole Sodium 40 Mg Tablet) 40 mg PO DAILY [facility] Last Admin: 09/16/20 09:52 Dose: 40 mg Documented by: Senna/Docusate Sodium (Senna/Docusate Sodium 1 Tablet) 2 tablet PO BID PRN PRN PRN Reason: Constipation Last Admin: 09/16/20 21:47 Dose: 2 tablet Documented by: Sodium Chloride (0.9% Saline Lock 10 Ml Syringe) 10 - 40 ml IV UD PRN PRN Reason: SALINE FLUSH Last Admin: 09/16/20 09:53 Dose: 20 ml Documented by: Zolpidem Tartrate (Zolpidem Tartrate 5 Mg Tablet) 5 mg PO QHS PRN PRN PRN Reason: INSOMNIA Assessment/Plan All Active Problems (Last Reviewed 03/30/20 @ 11:[address] Frandy Tarango MD) Acute right quadriceps injury (Acute) Acute cystitis (Acute) Frequent falls (Acute) Physical debility (Acute) Probable right quad tendon rupture Will consult cardiology to determine if she can discontinue Plavix in anticipation of right quad tendon repair Will MRI right thigh to better characterize the tendon tear and evaluate for further injuries Will plan on surgical repair Friday if she can be off of blood thinners Will hold Plavix today pending cardiology consult
[2020-09-17] MEDS: Ciprofloxacin 500 MG Tablet PO ×2 (10:48→21:05)
[2020-09-17] MEDS: Metoprolol Tartrate 25 MG Tablet 12.5 MG PO ×2 (10:48→21:06)
[2020-09-17] MEDS: FLUoxetine 20 MG Capsule PO ×2 (10:49→21:06)
[2020-09-17] MEDS: Pantoprazole Sodium 40 MG Tablet PO (10:49)
[2020-09-17] MEDS: Enoxaparin 40 MG/0.4 ML Syringe SC (10:49)
[2020-09-17] MEDS: Senna/Docusate Sodium 1 Tablet 2 TABLET PO (10:49)
--- NOTE | 2020-09-17 11:59 | PCM.CONS.C ---
Problem List (1) Acute right quadriceps injury Status: Acute (2) Frequent falls Status: Acute (3) Hyperlipidemia Status: Chronic (4) Parkinsons disease Status: Chronic (5) Atherosclerotic heart disease of [place] coronary artery with other forms of angina pectoris Status: Chronic (6) History of coronary artery stent placement Status: Chronic Comment: PCI-AGUSTO to RCA 02/19/2008; PCI-AGUSTO-Mid LAD 10/08/2013 Reason for Consult Date of Consultation: 09/17/20 - Consultation requested for evaluation of cardiac risk assessment and also recommendation regarding her current medication with antiplatelet Plavix. History of Present Illness: The patient is a 70 year old F [] Past Medical History Allergies/Adverse Reactions: Allergies celecoxib [From Celebrex] Allergy (Verified 09/15/20 12:53) Itching fentanyl Allergy (Verified 03/30/20 11:14) Other HALLUCINATIONS Opioids - Morphine Analogues Allergy (Verified 03/30/20 11:14) hallucinate promethazine HCl [From Phenergan] Adverse Reaction (Verified 09/15/20 12:53) hallucinate Home Medications: Ambulatory Orders Medication Instructions Recorded Aspirin [Aspirin, Baby] 81 mg PO DAILY@0800 07/20/14 Fluoxetine [Prozac] 20 mg PO BID 07/20/14 Pantoprazole Sodium [Protonix] 40 mg PO DAILY #30 tab 03/07/17 cholecalciferol (vitamin D3) 25 2,000 unit PO DAILY tab 11/28/17 mcg (1,000 unit) tablet carbidopa 25 mg-levodopa 100 mg 2 tab PO 0800,1200 tab 03/30/19 tablet Carbidopa/Levodopa 1 tab PO 1600,1900 11/01/19 [Carbidopa-Levodopa 25-100 Tab] nitroglycerin 0.4 mg sublingual 0.4 mg SUBLINGUAL Q5M PRN #25 tab 11/03/19 tablet Clonazepam [Klonopin] 1 mg PO QHS 12/10/19 metoprolol tartrate 25 mg tablet 25 mg PO BID #180 tab 02/17/20 ascorbic acid (vitamin C) 1,000 mg 1 g PO DAILY tab 03/30/20 tablet glucosamine HCl 750 mg tablet 750 mg PO DAILY tab 03/30/20 mirtazapine 30 mg tablet 30 mg PO QHS tab 03/30/20 atorvastatin 40 mg tablet 40 mg PO QHS #90 tab 08/16/20 clopidogrel 75 mg tablet 75 mg PO DAILY #90 tab 08/17/20 Polyethylene Glycol 3350 [Miralax] 17 gm PO DAILY 09/15/20 Past Medical History (Chronic Problems): Chronic Problems (Last Reviewed 03/30/20 @ 11:[address] Frandy Tarango MD) Hyperlipidemia (Chronic) Parkinsons disease (Chronic) Atherosclerotic heart disease of [place] coronary artery with other forms of angina pectoris (Chronic) History of coronary artery stent placement (Chronic 10/08/13) PCI-AGUSTO to RCA 02/19/2008; PCI-AGUSTO-Mid LAD 10/08/2013 Essential (primary) hypertension (Chronic) HLD (hyperlipidemia) (Chronic) Surgical History: - - Cardiac stent placement 2007, 2013. 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 Delbert Edwards MD) Father CAD (coronary artery disease) Mother CAD (coronary artery disease) Other Family history of hyperlipidemia Family history of hypertension History Items: Heart Disease Paternal Family History: Family History (Last Reviewed 09/15/20 @ 14:[address] Delbert Edwards MD) Father CAD (coronary artery disease) Mother CAD (coronary artery disease) Other Family history of hyperlipidemia Family history of hypertension History Items: Heart Disease Lives: Spouse/ Significant Other Smoking Status: Former smoker Tobacco Use: Cigarettes Alcohol: None Drugs: None Objective: Vital Signs Temp Pulse Resp BP Pulse Ox 97.9 F 72 16 103/35 L 95 09/17/20 08:24 09/17/20 10:48 09/17/20 08:24 09/17/20 10:47 09/17/20 08:24 Oxygen Delivery Method Room Air Weight: 150 lb Body Mass Index (BMI) 28.3 Intake and Output for Last 24 Hours 09/15/20 09/16/20 09/17/20 23:59 23:59 23:59 Intake Total 530 / 530 1751.00 / 1751.00 700 / 700 Output Total 275 / 275 1000 / 1000 950 / 950 Balance 255 / 255 751.00 / 751.00 -250 / -250 Rhythm: EKG: ECHO: Stress Test: Cardiac Cath: PCI: CT Surgery: Holter monitor: EPS: PPM: CXR: Chest CT Scan: Assessment/Plan 70-year-old patient, admitted following a fall and evaluated by the orthopedic surgeon Dr. Ruperto Reed With the plan of repair of right quadriceps tendon tear. I saw this patient today at bedside and discuss cardiac recommendation with the nursing staff and the patient. This patient known to have history of CAD, has a prior coronary artery stent in 2007, PCI and stent of RCA using MultiLink vision stent/bare-metal done in [facility] Subsequently in October 2013 she had mid LAD stent. She follow with her exceptional children teacher assistant Dr. Frandy Tarango on and on review of the record she had a stress test in October this year which showed LV function preserved with no evidence of reversible ischemia Patient denied any symptoms of chest pain. The electrocardiogram showed underlying normal sinus with some ST-T T abnormality in the anterolateral lead. Assessment and plan; 1. Patient took Plavix yesterday and advised to hold on Plavix 2. Ideally she should hold on Plavix at least 5 days prior to surgery, risk will be less if there is a plan for surgery on Friday to minimize. Of stay in the hospital due to the Covid 19 risk. From cardiac standpoint she is cleared to undergo surgery which is intermediate risk due to her history of coronary artery atherosclerosis and a prior coronary artery stent 2007 in 2013. Other medical problems , Include history of frequent fall and Parkinson disease, hyperlipidemia and hypertension. I reviewed all her current medication today and discussed with the nursing staff will continue to hold on Plavix She will continue low-dose aspirin if okay with the orthopedic surgeon in addition to statin and beta-jelly metoprolol low-dose 12.5 mg twice a day. From cardiac standpoint cardiology will follow up post surgery for continuation of cardiac care.
[2020-09-17] MEDS: Acetaminophen 325 MG Tablet 650 MG PO (18:37)
[2020-09-17] MEDS: clonazePAM 1 MG Tablet PO (21:06)
[2020-09-17] MEDS: Mirtazapine 30 MG Tablet PO (21:06)
[2020-09-17] MEDS: Atorvastatin Calcium 40 MG Tablet PO (21:06)
[2020-09-17] MEDS: Zolpidem Tartrate 5 MG Tablet PO (22:44)
[2020-09-17] MEDS: oxyCODONE 5 MG Tablet PO (22:46)
[2020-09-18] VITALS (14 sets, daily range): BP systolic 93–178; BP diastolic 39–80; PULSE 54–72; RESP 16–18; TEMP 36.5–36.8; O2SAT 93–97
[2020-09-18] MEDS: hydrALAZINE 20 MG/ML Vial 10 MG IV (03:09)
--- NOTE | 2020-09-18 07:00 | MRI_ITS ---
STUDY: MRI LOWER EXTREMITY RIGHT THIGH REASON FOR EXAM: Pain in the distal thigh after fall, evaluate for quadriceps tendon tear. TECHNIQUE: Standardized fat and water weighted pulse sequences were obtained in all 3 orthogonal planes. COMPARISON: Radiographs 09/15/2020. FINDINGS: There is a hematoma in the subcutis adipose space anterior to the distal quadriceps tendon and patella (T2 axial images 27-34) measuring approximately 2.4 x 6.3 x 7.6 cm (AP x transverse x length). There is edema in the subcutis adipose space of the distal thigh. There is a small left joint effusion (inversion recovery sagittal image 10). There is mild edema in the distal vastus lateralis muscle (inversion recovery sagittal images 7, 8) consistent with a low-grade strain. Otherwise, unremarkable visualized muscles of the thigh. The quadriceps tendon appears intact (inversion recovery sagittal images 11-13). Normal visualized femur. MRI/Lower Ext/No Jt/w/o IMPRESSION: Hematoma anterior to the distal quadriceps tendon and patella. Low-grade strain of the distal vastus lateralis muscle. No demonstrated quadriceps tendon tear. Electronically Signed: Savage Damon MD at 10:56 EST Tel , Service support ,
--- NOTE | 2020-09-18 08:14 | PCM.PROGNOTE ---
Patient Problems: Active and Suspected Problems (Last Reviewed 03/30/20 @ 11:[address] Frandy Tarango MD) Acute right quadriceps injury (Acute) Acute cystitis (Acute) Frequent falls (Acute) Physical debility (Acute) Subjective: Chief complaint: Follow-up after admission for acute cystitis, right quadriceps injury, physical debility and closed head injury. Patient seen and examined. No acute events overnight. Again, she denied any significant complaints. She has been in the bed most of her time. Denied right knee or thigh pain. Her vital signs are stable. - Physical Exam Vitals/I&O's: Vital Signs Temp Pulse Resp BP Pulse Ox 97.9 F 67 16 158/55 H 96 09/18/20 07:59 09/18/20 07:59 09/18/20 07:59 09/18/20 07:59 09/18/20 07:59 Oxygen Delivery Method Room Air Weight: 150 lb 0.005 oz Body Mass Index (BMI) 28.3 Intake and Output for Last 24 Hours 09/16/20 09/17/20 09/18/20 23:59 23:59 23:59 Intake Total 1751.00 / 1751.00 1560 / 1560 400 / 400 Output Total 1000 / 1000 1475 / 1475 475 / 475 Balance 751.00 / 751.00 85 / 85 -75 / -75 General: Alert, Oriented x3, No apparent distress HEENT: Atraumatic, PERRLA, EOMI, Normocephalic Oral: Moist Mucosa, No Gingival or Mucosal Lesions/ Ulcerations Neck: Supple, No JVD, Negative Carotid Bruits, Trachea Midline, Thyroid Normal Size and Texture Lungs: Clear to auscultation, Normal air movement, No rhonchi, No wheeze, No rales Cardiovascular: Regular rate, Regular Rhythm, Normal S1, Normal S2, PMI Normal Abdomen: Bowel Sounds Present, Soft, Non Tender, Non-Distended, No Hepato-splenomegaly Extremities: No clubbing, No cyanosis, No edema Skin: No rashes, No breakdown Lymphatic: No Cervical, Supraclavicular, or Inguinal Adenopathy Neurological: Cranial nerves II-XII grossly intact, Neuro grossly intact Psych/Mental Status: Normal Affect, Appropriate Microbiology Past 72 Hours 09/15/20 11:04 Urine Catheter - Catheter Urine Culture - Final Presumptive E. coli Current Medications Acetaminophen (Acetaminophen 325 Mg Tablet) 650 mg PO Q6H PRN PRN PRN Reason: Pain Score 1-10/Temp > 100.7 F Last Admin: 09/17/20 18:37 Dose: 650 mg Documented by: Aspirin (Aspirin 81 Mg Tab.Chew) 81 mg PO DAILY@0800 [facility] Last Admin: 09/17/20 08:30 Dose: 81 mg Documented by: Atorvastatin Calcium (Atorvastatin Calcium 40 Mg Tablet) 40 mg PO QHS [facility] Last Admin: 09/17/20 21:06 Dose: 40 mg Documented by: Carbidopa/Levodopa (Carbidopa/Levodopa 25/100 Tablet) 1 tablet PO 1600,1900 [facility] Last Admin: 09/17/20 18:35 Dose: 1 tablet Documented by: Carbidopa/Levodopa (Carbidopa/Levodopa 25/100 Tablet) 2 tablet PO 0800,1200 [facility] Last Admin: 09/17/20 12:57 Dose: 2 tablet Documented by: Ciprofloxacin HCl (Ciprofloxacin 500 Mg Tablet) 500 mg PO BID [facility] Stop: 09/21/20 10:01 Last Admin: 09/17/20 21:05 Dose: 500 mg Documented by: Clonazepam (Clonazepam 1 Mg Tablet) 1 mg PO QHS [facility] Last Admin: 09/17/20 21:06 Dose: 1 mg Documented by: Clopidogrel Bisulfate (Clopidogrel Bisulfate 75 Mg Tablet) 75 mg PO DAILY [facility] Last Admin: 09/16/20 09:52 Dose: 75 mg Documented by: Enoxaparin Sodium (Enoxaparin 40 Mg/0.4 Ml Syringe) 40 mg SC DAILY [facility] Last Admin: 09/17/20 10:49 Dose: 40 mg Documented by: Fluoxetine HCl (Fluoxetine 20 Mg Capsule) 20 mg PO BID [facility] Last Admin: 09/17/20 21:06 Dose: 20 mg Documented by: Hydralazine HCl (Hydralazine 20 Mg/Ml Vial) 10 mg IV Q8H PRN PRN PRN Reason: for SBP>160 Last Admin: 09/18/20 03:09 Dose: 10 mg Documented by: Sodium Chloride () 250 mls @ 15 mls/hr IV .[id number] PRN PRN Reason: Saline Flush Last Infusion: 09/16/20 10:40 Dose: 0 mls/hr Documented by: Metoprolol Tartrate (Metoprolol Tartrate 25 Mg Tablet) 12.5 mg PO BID [facility] Last Admin: 09/17/20 21:06 Dose: 12.5 mg Documented by: Mirtazapine (Mirtazapine 30 Mg Tablet) 30 mg PO QHS [facility] Last Admin: 09/17/20 21:06 Dose: 30 mg Documented by: Ondansetron HCl (Ondansetron 4 Mg/2 Ml Vial) 4 mg IV Q8H PRN PRN PRN Reason: NAUSEA/VOMITING Oxycodone HCl (Oxycodone 5 Mg Tablet) 5 mg PO Q6H PRN PRN PRN Reason: Pain Score 4-10 Last Admin: 09/17/20 22:46 Dose: 5 mg Documented by: Pantoprazole Sodium (Pantoprazole Sodium 40 Mg Tablet) 40 mg PO DAILY [facility] Last Admin: 09/17/20 10:49 Dose: 40 mg Documented by: Senna/Docusate Sodium (Senna/Docusate Sodium 1 Tablet) 2 tablet PO BID PRN PRN PRN Reason: Constipation Last Admin: 09/17/20 10:49 Dose: 2 tablet Documented by: Sodium Chloride (0.9% Saline Lock 10 Ml Syringe) 10 - 40 ml IV UD PRN PRN Reason: SALINE FLUSH Last Admin: 09/16/20 09:53 Dose: 20 ml Documented by: Zolpidem Tartrate (Zolpidem Tartrate 5 Mg Tablet) 5 mg PO QHS PRN PRN PRN Reason: INSOMNIA Last Admin: 09/17/20 22:44 Dose: 5 mg Documented by: Medical Necessity - Tobacco Use Smoking Status: Former smoker Tobacco Use: Cigarettes Assessment/Plan All Active Problems (Last Reviewed 03/30/20 @ 11:[address] Frandy Tarango MD) Acute right quadriceps injury (Acute) Acute cystitis (Acute) Frequent falls (Acute) Physical debility (Acute) This is a 70 years old female patient presented to the emergency room because of fall, found to have closed head injury, scalp hematoma, right knee hematoma, right quadriceps injury and acute cystitis. #1 physical debility/functional decline/frequent falls: Multifactorial secondary to age and Parkinson's disease. Imaging studies reviewed as below. Her vitals are stable. Today, patient mentioned that she is refusing to go to long-term facility and she thinks that she can go back home. Orthopedic surgery decided to take patient for surgery on Friday and this will probably change her plan. Postoperatively, she will probably need to go to long-term facility. We will have PT OT evaluate the patient postoperatively. #2 closed head injury/scalp hematoma: Stable, it is due to mechanical fall. CT scan brain reviewed, revealed scalp hematoma, no acute intracranial bleed. She does have bruises on the right side of her face. She is not on anticoagulation. INR is 1.3, close to normal. #3 right quadriceps injury/possible tendon rupture: Due to mechanical fall. She is on OxyIR as needed for pain. Orthopedic surgery consulted, recommended MRI of the right femur which was ordered and it will be done today. Cardiology cleared the patient to go for surgery and Plavix is on hold. Orthopedic surgery is planning for surgical repair on Friday. #4 acute cystitis: She is on p.o. ciprofloxacin. Urine culture revealed E. coli, sensitivity reviewed. #5 CAD status post stents: Stable, no complaints. Stable, continue metoprolol, aspirin, statins. Plavix held. Appreciate cardiology evaluation recommendation. #6 hypertension: Blood pressure has been fluctuating probably due to autonomic dysfunction due to Parkinson's disease, continue metoprolol as above, IV hydralazine as needed. #7 Parkinson's disease: Continue Sinemet and mirtazapine. #8 anxiety/depression: Continue Klonopin, Prozac and mirtazapine. #9 hyperlipidemia: Continue statins. #10 DVT prophylaxis: Subcu Lovenox. This note was generated with [employer] dictation software. It may contain incorrect words, spelling, and punctuation that were not noted in checking the note before signing. Inpatient E&M: [id number] Subs Hosp L2
[2020-09-18] MEDS: Carbidopa/Levodopa 25/100 Tablet PO ×4 (08:17→18:37)
[2020-09-18] MEDS: FLUoxetine 20 MG Capsule PO ×2 (08:17→21:51)
[2020-09-18] MEDS: Pantoprazole Sodium 40 MG Tablet PO (08:17)
[2020-09-18] MEDS: Metoprolol Tartrate 25 MG Tablet 12.5 MG PO (08:18)
[2020-09-18] MEDS: Aspirin 81 MG TAB.CHEW PO (08:18)
[2020-09-18] MEDS: Ciprofloxacin 500 MG Tablet PO ×2 (08:18→21:51)
[2020-09-18] MEDS: Enoxaparin 40 MG/0.4 ML Syringe SC (08:20)
--- NOTE | 2020-09-18 15:00 | CASEMGMT ---
Social Work Note Per tank officer questions, pt has completed HCPOA and LW and provided copies to [facility]. SW reviewed chart, no copies found. SW in to speak with pt. SW introduced self and role at [facility]. Pt confirms she has completed HCPOA and LW. SW updated pt that no copies found on chart. Pt states she is able to bring in copies. Arlin Brooks ACCIDENT INVESTIGATOR, [employer]OUNT[employer]
--- NOTE | 2020-09-18 15:13 | PN.ORTHO_ITS ---
Patient Problems: Active and Suspected Problems (Last Reviewed 03/30/20 @ 11:[address] Frandy Tarango MD) Acute right quadriceps injury (Acute) Acute cystitis (Acute) Frequent falls (Acute) Physical debility (Acute) Subjective: Patient reports much less pain today. Ambulated with assistance to the bathroom. She states that PT with her walker went well. - Physical Exam Vitals/I&O's: Vital Signs Temp Pulse Resp BP Pulse Ox 97.7 F L 68 18 93/39 L 97 09/18/20 14:23 09/18/20 14:23 09/18/20 14:23 09/18/20 14:23 09/18/20 14:23 Oxygen Delivery Method Room Air Weight: 150 lb 0.005 oz Body Mass Index (BMI) 28.3 Intake and Output for Last 24 Hours 09/16/20 09/17/20 09/18/20 23:59 23:59 23:59 Intake Total 1751.00 / 1751.00 1560 / 1560 400 / 400 Output Total 1000 / 1000 1475 / 1475 475 / 475 Balance 751.00 / 751.00 85 / 85 -75 / -75 General: Alert, Oriented x3, Cooperative, No apparent distress Extremities: Tenderness - Right thigh. Palpable hematoma and deformity. Pt still unable to extend against resistance. Neurological: Neuro grossly intact Comment: MRI reviewed, she has a large hematoma but no quad tendon tear Microbiology Past 72 Hours 09/15/20 11:04 Urine Catheter - Catheter Urine Culture - Final Presumptive E. coli Current Medications Acetaminophen (Acetaminophen 325 Mg Tablet) 650 mg PO Q6H PRN PRN PRN Reason: Pain Score 1-10/Temp > 100.7 F Last Admin: 09/17/20 18:37 Dose: 650 mg Documented by: Aspirin (Aspirin 81 Mg Tab.Chew) 81 mg PO DAILY@0800 [facility] Last Admin: 09/18/20 08:18 Dose: 81 mg Documented by: Atorvastatin Calcium (Atorvastatin Calcium 40 Mg Tablet) 40 mg PO QHS [facility] Last Admin: 09/17/20 21:06 Dose: 40 mg Documented by: Carbidopa/Levodopa (Carbidopa/Levodopa 25/100 Tablet) 1 tablet PO 1600,1900 [facility] Last Admin: 09/17/20 18:35 Dose: 1 tablet Documented by: Carbidopa/Levodopa (Carbidopa/Levodopa 25/100 Tablet) 2 tablet PO 0800,1200 [facility] Last Admin: 09/18/20 11:34 Dose: 2 tablet Documented by: Ciprofloxacin HCl (Ciprofloxacin 500 Mg Tablet) 500 mg PO BID [facility] Stop: 09/21/20 10:01 Last Admin: 09/18/20 08:18 Dose: 500 mg Documented by: Clonazepam (Clonazepam 1 Mg Tablet) 1 mg PO QHS [facility] Last Admin: 09/17/20 21:06 Dose: 1 mg Documented by: Clopidogrel Bisulfate (Clopidogrel Bisulfate 75 Mg Tablet) 75 mg PO DAILY [facility] Last Admin: 09/16/20 09:52 Dose: 75 mg Documented by: Enoxaparin Sodium (Enoxaparin 40 Mg/0.4 Ml Syringe) 40 mg SC DAILY [facility] Last Admin: 09/18/20 08:20 Dose: 40 mg Documented by: Fluoxetine HCl (Fluoxetine 20 Mg Capsule) 20 mg PO BID [facility] Last Admin: 09/18/20 08:17 Dose: 20 mg Documented by: Hydralazine HCl (Hydralazine 20 Mg/Ml Vial) 10 mg IV Q8H PRN PRN PRN Reason: for SBP>160 Last Admin: 09/18/20 03:09 Dose: 10 mg Documented by: Sodium Chloride () 250 mls @ 15 mls/hr IV .[id number] PRN PRN Reason: Saline Flush Last Infusion: 09/16/20 10:40 Dose: 0 mls/hr Documented by: Metoprolol Tartrate (Metoprolol Tartrate 25 Mg Tablet) 12.5 mg PO BID [facility] Last Admin: 09/18/20 08:18 Dose: 12.5 mg Documented by: Mirtazapine (Mirtazapine 30 Mg Tablet) 30 mg PO QHS [facility] Last Admin: 09/17/20 21:06 Dose: 30 mg Documented by: Ondansetron HCl (Ondansetron 4 Mg/2 Ml Vial) 4 mg IV Q8H PRN PRN PRN Reason: NAUSEA/VOMITING Oxycodone HCl (Oxycodone 5 Mg Tablet) 5 mg PO Q6H PRN PRN PRN Reason: Pain Score 4-10 Last Admin: 09/17/20 22:46 Dose: 5 mg Documented by: Pantoprazole Sodium (Pantoprazole Sodium 40 Mg Tablet) 40 mg PO DAILY [facility] Last Admin: 09/18/20 08:17 Dose: 40 mg Documented by: Senna/Docusate Sodium (Senna/Docusate Sodium 1 Tablet) 2 tablet PO BID PRN PRN PRN Reason: Constipation Last Admin: 09/17/20 10:49 Dose: 2 tablet Documented by: Sodium Chloride (0.9% Saline Lock 10 Ml Syringe) 10 - 40 ml IV UD PRN PRN Reason: SALINE FLUSH Last Admin: 09/16/20 09:53 Dose: 20 ml Documented by: Zolpidem Tartrate (Zolpidem Tartrate 5 Mg Tablet) 5 mg PO QHS PRN PRN PRN Reason: INSOMNIA Last Admin: 09/17/20 22:44 Dose: 5 mg Documented by: Medical Necessity - Tobacco Use Smoking Status: Former smoker Tobacco Use: Cigarettes Assessment/Plan All Active Problems (Last Reviewed 03/30/20 @ 11:[address] Frandy Tarango MD) Acute right quadriceps injury (Acute) Acute cystitis (Acute) Frequent falls (Acute) Physical debility (Acute) Hematoma right thigh MRI indicates that there is no quadriceps tendon tear, but a hematoma of her thigh. At this time, surgical intervention is not indicated, I instructed her that when she is seated, she may remove her immobilizer and work on knee ROM. When she is ambulatory, she should wear her immobilizer and may be WBAT. She should follow up in my office next week.
[2020-09-18] MEDS: clonazePAM 1 MG Tablet PO (19:27)
[2020-09-18] MEDS: 0.9% Saline Lock 10 ML Syringe IV (21:49)
[2020-09-18] MEDS: Atorvastatin Calcium 40 MG Tablet PO (21:51)
[2020-09-18] MEDS: Mirtazapine 30 MG Tablet PO (21:51)
[2020-09-19 03:13] VITALS: PULSE 62
[2020-09-19 04:11] VITALS: BP 149/68; PULSE 68; RESP 16; TEMP 36.7; O2SAT 93
--- NOTE | 2020-09-19 07:58 | PCM.PN.HOSP ---
Patient Problems: Active and Suspected Problems (Last Reviewed 03/30/20 @ 11:[address] Frandy Tarango MD) Acute right quadriceps injury (Acute) Acute cystitis (Acute) Frequent falls (Acute) Physical debility (Acute) Vitals/I&O's: Vital Signs Temp Pulse Resp BP Pulse Ox 98.1 F 68 16 149/68 H 93 09/19/20 04:11 09/19/20 04:11 09/19/20 04:11 09/19/20 04:11 09/19/20 04:11 Oxygen Delivery Method Room Air Weight: 150 lb 0.005 oz Body Mass Index (BMI) 28.3 Intake and Output for Last 24 Hours 09/17/20 09/18/20 09/19/20 23:59 23:59 23:59 Intake Total 1560 / 1560 600 / 600 100 / 100 Output Total 1475 / 1475 475 / 475 Balance 85 / 85 125 / 125 100 / 100 Microbiology Past 72 Hours 09/15/20 11:04 Urine Catheter - Catheter Urine Culture - Final Presumptive E. coli Current Medications Acetaminophen (Acetaminophen 325 Mg Tablet) 650 mg PO Q6H PRN PRN PRN Reason: Pain Score 1-10/Temp > 100.7 F Last Admin: 09/17/20 18:37 Dose: 650 mg Documented by: Aspirin (Aspirin 81 Mg Tab.Chew) 81 mg PO DAILY@0800 [facility] Last Admin: 09/18/20 08:18 Dose: 81 mg Documented by: Atorvastatin Calcium (Atorvastatin Calcium 40 Mg Tablet) 40 mg PO QHS [facility] Last Admin: 09/18/20 21:51 Dose: 40 mg Documented by: Carbidopa/Levodopa (Carbidopa/Levodopa 25/100 Tablet) 1 tablet PO 1600,1900 [facility] Last Admin: 09/18/20 18:37 Dose: 1 tablet Documented by: Carbidopa/Levodopa (Carbidopa/Levodopa 25/100 Tablet) 2 tablet PO 0800,1200 [facility] Last Admin: 09/18/20 11:34 Dose: 2 tablet Documented by: Ciprofloxacin HCl (Ciprofloxacin 500 Mg Tablet) 500 mg PO BID [facility] Stop: 09/21/20 10:01 Last Admin: 09/18/20 21:51 Dose: 500 mg Documented by: Clonazepam (Clonazepam 1 Mg Tablet) 1 mg PO QHS [facility] Last Admin: 09/18/20 19:27 Dose: 1 mg Documented by: Clopidogrel Bisulfate (Clopidogrel Bisulfate 75 Mg Tablet) 75 mg PO DAILY [facility] Last Admin: 09/16/20 09:52 Dose: 75 mg Documented by: Enoxaparin Sodium (Enoxaparin 40 Mg/0.4 Ml Syringe) 40 mg SC DAILY [facility] Last Admin: 09/18/20 08:20 Dose: 40 mg Documented by: Fluoxetine HCl (Fluoxetine 20 Mg Capsule) 20 mg PO BID [facility] Last Admin: 09/18/20 21:51 Dose: 20 mg Documented by: Hydralazine HCl (Hydralazine 20 Mg/Ml Vial) 10 mg IV Q8H PRN PRN PRN Reason: for SBP>160 Last Admin: 09/18/20 03:09 Dose: 10 mg Documented by: Sodium Chloride () 250 mls @ 15 mls/hr IV .[id number] PRN PRN Reason: Saline Flush Last Infusion: 09/16/20 10:40 Dose: 0 mls/hr Documented by: Metoprolol Tartrate (Metoprolol Tartrate 25 Mg Tablet) 12.5 mg PO BID [facility] Last Admin: 09/18/20 21:50 Dose: Not Given Documented by: Mirtazapine (Mirtazapine 30 Mg Tablet) 30 mg PO QHS [facility] Last Admin: 09/18/20 21:51 Dose: 30 mg Documented by: Ondansetron HCl (Ondansetron 4 Mg/2 Ml Vial) 4 mg IV Q8H PRN PRN PRN Reason: NAUSEA/VOMITING Oxycodone HCl (Oxycodone 5 Mg Tablet) 5 mg PO Q6H PRN PRN PRN Reason: Pain Score 4-10 Last Admin: 09/17/20 22:46 Dose: 5 mg Documented by: Pantoprazole Sodium (Pantoprazole Sodium 40 Mg Tablet) 40 mg PO DAILY [facility] Last Admin: 09/18/20 08:17 Dose: 40 mg Documented by: Senna/Docusate Sodium (Senna/Docusate Sodium 1 Tablet) 2 tablet PO BID PRN PRN PRN Reason: Constipation Last Admin: 09/17/20 10:49 Dose: 2 tablet Documented by: Sodium Chloride (0.9% Saline Lock 10 Ml Syringe) 10 - 40 ml IV UD PRN PRN Reason: SALINE FLUSH Last Admin: 09/18/20 21:49 Dose: 10 ml Documented by: Zolpidem Tartrate (Zolpidem Tartrate 5 Mg Tablet) 5 mg PO QHS PRN PRN PRN Reason: INSOMNIA Last Admin: 09/17/20 22:44 Dose: 5 mg Documented by: STROKE Vital Signs/Narrative: Vital Signs Temp Pulse Resp BP Pulse Ox 09/19/20 04:11 98.1 F 68 16 149/68 H 93 Medical Necessity - Tobacco Use Smoking Status: Former smoker Tobacco Use: Cigarettes Assessment/Plan All Active Problems (Last Reviewed 03/30/20 @ 11:[address] Frandy Tarango MD) Acute right quadriceps injury (Acute) Acute cystitis (Acute) Frequent falls (Acute) Physical debility (Acute) This is a 70 years old female patient presented to the emergency room because of fall, found to have closed head injury, scalp hematoma, right knee hematoma, right quadriceps injury and acute cystitis. #1 physical debility/functional decline/frequent falls: Multifactorial secondary to age and Parkinson's disease. Imaging studies reviewed as below. Her vitals are stable. Today, patient mentioned that she is refusing to go to [facility] and she thinks that she can go back home. Orthopedic surgery decided to take patient for surgery on Friday and this will probably change her plan. Postoperatively, she will probably need to go to [facility] facility. We will have PT OT evaluate the patient postoperatively. #2 closed head injury/scalp hematoma: Stable, it is due to mechanical fall. CT scan brain reviewed, revealed scalp hematoma, no acute intracranial bleed. She does have bruises on the right side of her face. She is not on anticoagulation. INR is 1.3, close to normal. #3 right quadriceps injury/possible tendon rupture: Due to mechanical fall. She is on OxyIR as needed for pain. Orthopedic surgery consulted, recommended MRI of the right femur which was ordered and it will be done today. Cardiology cleared the patient to go for surgery and Plavix is on hold. Orthopedic surgery is planning for surgical repair on Friday. #4 acute cystitis: She is on p.o. ciprofloxacin. Urine culture revealed E. coli, sensitivity reviewed. #5 CAD status post stents: Stable, no complaints. Stable, continue metoprolol, aspirin, statins. Plavix held. Appreciate cardiology evaluation recommendation. #6 hypertension: Blood pressure has been fluctuating probably due to autonomic dysfunction due to Parkinson's disease, continue metoprolol as above, IV hydralazine as needed. #7 Parkinson's disease: Continue Sinemet and mirtazapine. #8 anxiety/depression: Continue Klonopin, Prozac and mirtazapine. #9 hyperlipidemia: Continue statins. #10 DVT prophylaxis: Subcu Lovenox.
[2020-09-19] MEDS: Aspirin 81 MG TAB.CHEW PO (09:15)
[2020-09-19] MEDS: Carbidopa/Levodopa 25/100 Tablet PO (09:16)
[2020-09-19 09:17] VITALS: BP 124/68; PULSE 75
[2020-09-19] MEDS: Metoprolol Tartrate 25 MG Tablet 12.5 MG PO (09:17)
[2020-09-19] MEDS: Enoxaparin 40 MG/0.4 ML Syringe SC (09:17)
[2020-09-19] MEDS: Ciprofloxacin 500 MG Tablet PO (09:17)
[2020-09-19] MEDS: Pantoprazole Sodium 40 MG Tablet PO (09:21)
[2020-09-19] MEDS: FLUoxetine 20 MG Capsule PO (09:21)
[2020-09-19 09:25] VITALS: BP 124/68; PULSE 75; RESP 18; TEMP 36.8; O2SAT 93
[2020-09-19 10:00] VITALS: PULSE 82
--- NOTE | 2020-09-19 10:40 | DCINST_ITS ---
- Discharge Diagnoses Current Active Problems: Current Active and Chronic Problems (Last Reviewed 03/30/20 @ 11:[address] Frandy Tarango MD) Acute right quadriceps injury (Acute) Acute cystitis (Acute) Frequent falls (Acute) Physical debility (Acute) Hyperlipidemia (Chronic) Parkinsons disease (Chronic) Atherosclerotic heart disease of [place] coronary artery with other forms of angina pectoris (Chronic) History of coronary artery stent placement (Chronic 10/08/13) PCI-[facility] to RCA 02/19/2008; PCI-[facility] LAD 10/08/2013 Essential (primary) hypertension (Chronic) HLD (hyperlipidemia) (Chronic) You will use the following diet at home:: Cardiac Your food should be the consistency of: Regular Discharge Activity: May Not Drive Weight Bearing Status: Weight bearing as tolerated Call your doctor if you observe: Fever of 101 or Higher, Numbness or Tingling, Change in Color, Inability to urinate, Inability to have a bowel movement, Using more than one pad per hour, Shortness of breath, Dizziness, Fainting spells, Swelling in the ankles, Chest pain, Prolonged hiccoughing, Increased palpitations (irregular heartbeat), Calf discomfort, Uncontrolled pain Additional Instructions: Follow-up the neurologist for Parkinson disease. Allergies/Adverse Reactions: Allergies celecoxib [From Celebrex] Allergy (Verified 09/15/20 12:53) Itching fentanyl Allergy (Verified 03/30/20 11:14) Other HALLUCINATIONS Opioids - Morphine Analogues Allergy (Verified 03/30/20 11:14) hallucinate promethazine HCl [From Phenergan] Adverse Reaction (Verified 09/15/20 12:53) hallucinate Medications to take at Discharge Aspirin [Aspirin, Baby] 81 mg PO DAILY@0800 07/20/14 Fluoxetine [Prozac] 20 mg PO BID 07/20/14 Pantoprazole Sodium [Protonix] 40 mg PO DAILY #30 tab 03/07/17 cholecalciferol (vitamin D3) 25 mcg (1,000 unit) tablet 2,000 unit PO DAILY tab 11/28/17 carbidopa 25 mg-levodopa 100 mg tablet 2 tab PO 0800,1200 tab 03/30/19 Carbidopa/Levodopa [Carbidopa-Levodopa 25-100 Tab] 1 tab PO 1600,1900 11/01/19 nitroglycerin 0.4 mg sublingual tablet 0.4 mg SUBLINGUAL Q5M PRN #25 tab 11/03/19 Clonazepam [Klonopin] 1 mg PO QHS 12/10/19 ascorbic acid (vitamin C) 1,000 mg tablet 1 g PO DAILY tab 03/30/20 glucosamine HCl 750 mg tablet 750 mg PO DAILY tab 03/30/20 mirtazapine 30 mg tablet 30 mg PO QHS tab 03/30/20 atorvastatin 40 mg tablet 40 mg PO QHS #90 tab 08/16/20 clopidogrel 75 mg tablet 75 mg PO DAILY #90 tab 08/17/20 Polyethylene Glycol 3350 [Miralax] 17 gm PO DAILY 09/15/20 Ciprofloxacin [Cipro] 500 mg PO BID #2 tab 09/19/20 Metoprolol Tartrate [Lopressor (beta jelly)] 12.5 mg PO BID tab 09/19/20 The following prescriptions were given: Ciprofloxacin [Cipro] 500 mg PO BID #2 tab Transmission Status: Pending to [facility] Primary Care Physician: Ghazala Leigh MD [Primary Care Provider] - Please follow up with your Primary Care Physician in: In 1 to 2 weeks Test Results: Test results from this visit will be discussed in further detail at your follow- up appointment, if applicable. Please Follow Up With: Rodger Underwood MD When: In 2 to 3 weeks
--- NOTE | 2020-09-19 10:42 | DS.PCM_ITS ---
Discharge Date and Diagnosis - Problem List Patient Problems: Active and Suspected Problems (Last Reviewed 03/30/20 @ 11:[address] Frandy Tarango MD) Acute right quadriceps injury (Acute) Acute cystitis (Acute) Frequent falls (Acute) Physical debility (Acute) Date of Admission: 09/15/20 Date of Discharge: 09/19/20 - Primary Discharge Diagnosis Acute Problems: Active Problems (Last Reviewed 03/30/20 @ 11:[address] Frandy Tarango MD) Acute right quadriceps injury (Acute) Acute cystitis (Acute) Frequent falls (Acute) Physical debility (Acute) - Secondary Discharge Diagnosis Chronic Problems: Chronic Problems (Last Reviewed 03/30/20 @ 11:[address] Frandy Tarango MD) Hyperlipidemia (Chronic) Parkinsons disease (Chronic) Atherosclerotic heart disease of [place] coronary artery with other forms of angina pectoris (Chronic) History of coronary artery stent placement (Chronic 10/08/13) PCI-AGUSTO to RCA 02/19/2008; PCI-AGUSTO-Mid LAD 10/08/2013 Essential (primary) hypertension (Chronic) HLD (hyperlipidemia) (Chronic) Hospital Course and Treatment Operations: None Summary of Care Provided: This is a 70 years old female patient presented to the emergency room because of fall, found to have closed head injury, scalp hematoma, right knee hematoma, right quadriceps injury and acute cystitis. #1 physical debility/functional decline/frequent falls: Multifactorial secondary to age and Parkinson's disease. Patient had multiple imaging as listed below. MRI right knee shows no quadriceps tendon tear. Hematoma anterior to distal quadriceps tendon and patella. Earlier, orthopedic surgery decided to take patient for surgery on Friday but patient refused it. She wants to go home. She also refused going to see a retirement facility rather home with home health acute care assistant. Discussed with the case mgr. Patient on aspirin and Plavix for history of coronary artery status post PCI but her last stent was in 2013 and last cardiac cath in 2016 shows her stents were patent. She is she has high risk of fall and recent hematoma therefore will discontinue Plavix. Continue aspirin. #2 closed head injury/scalp hematoma: Stable, it is due to mechanical fall. CT scan brain reviewed, revealed scalp hematoma, no acute intracranial bleed. She does have bruises on the right side of her face. INR is 1.3, close to normal. #3 right quadriceps injury/possible tendon rupture: Due to mechanical fall. She is on OxyIR as needed for pain. Orthopedic surgery was consulted and was planned for surgery on Friday but patient refused it. #4 acute cystitis due to E. coli: She is on p.o. ciprofloxacin. Urine culture revealed E. coli, sensitivity reviewed. Sensitive to Cipro. Patient had 5 days of total antibiotics here including IV Rocephin and Cipro. 1 more day of Cipro. #5 CAD status post stents: Stable, no complaints. Stable, continue metoprolol, aspirin, statins. Plavix held. Cardiology was consulted. Was appreciate cardiology evaluation recommendation. #6 hypertension: Blood pressure was fluctuating due to autonomic dysfunction due to Parkinson's disease, continue metoprolol as above, IV hydralazine as needed. #7 Parkinson's disease: Continue Sinemet and mirtazapine. #8 anxiety/depression: Continue Klonopin, Prozac and mirtazapine. #9 hyperlipidemia: Continue statins. #10 DVT prophylaxis: Subcu Lovenox. Living will/advanced directive/end of life care: Patient does have living will or advanced directive. After discussion of benefits/risks procedures involved with full code, DNR CC arrest and DNR CC, the patient opted for DNR-CC Arrest with no intubation Patient does not want artificial life support including intubation, tube feed, ventilator and/chest compression, central venous catheter, vasopressor and DC shock if needed Total time spent in [id number] encounter in discussion of advanced directive 16 minutes. Clinical Impression(s) from Imaging Studies Brain CT 09/15/20 08:45 IMPRESSION: Small posterior left parietal scalp hematoma. No intracranial hemorrhage. Cervical Spine CT 09/15/20 08:45 IMPRESSION: Cervical spine acutely intact Cervical straightening with degenerative changes, as above Chest X-Ray 09/15/20 09:00 IMPRESSION: Hyperinflation. The lungs are clear. Hip/Pelvis X-Ray 09/15/20 09:00 IMPRESSION: No acute abnormality is seen. Knee X-Ray 09/15/20 09:00 IMPRESSION: Right knee acutely intact Joint space narrowing predominating medially Extensive anterior soft tissue swelling/large hematoma formation (exclude distal quadriceps injury clinically) Lower Extremity MRI 09/18/20 07:00 IMPRESSION: Hematoma anterior to the distal quadriceps tendon and patella. Low-grade strain of the distal vastus lateralis muscle. No demonstrated quadriceps tendon tear. Patient Problems: Active and Suspected Problems (Last Reviewed 03/30/20 @ 11:[address] Frandy Tarango MD) Acute right quadriceps injury (Acute) Acute cystitis (Acute) Frequent falls (Acute) Physical debility (Acute) Objective: Patient heart rate was slow in 50s and metoprolol dose was decreased to 12.5 mg p.o. twice daily. Patient wants to go home. She has her daughter about 20 minutes away and she lives with her . She has Parkinson's disease. She has living will at home. Patient wants to go home. Physical exam General: Alert, Oriented x3, Cooperative HEENT: Mild bruise over the left parietal region and right frontal. PERRLA, EOMI, Normocephalic Oral: No Gingival or Mucosal Lesions/ Ulcerations Neck: Supple, No JVD, Negative Carotid Bruits Lungs: Air entry diminished in bilateral lung bases. No crepitation/rhonchi Cardiovascular: Regular rate, Regular Rhythm, Normal S1, Normal S2, No murmurs Abdomen: Bowel Sounds Present, Soft, Non Tender, Non-Distended : No renal angle tenderness. No suprapubic tenderness. Extremities: No edema, Capillary Refill Less than 3 Seconds Skin: No rashes, No breakdown Musculoskeletal: Right knee on knee immobilizer. There is swelling of right knee with effusion mainly anteromedial region. No acute tenderness to Palpation of Joints or Extremities Neurological: Cranial nerves II-XII grossly intact, Deep Tendon Reflexes 2+/4 and Symmetrical, Neuro grossly intact Psych/Mental Status: Normal Affect, Appropriate. - Physical Exam Vitals/I&O's: Vital Signs Temp Pulse Resp BP Pulse Ox 98.3 F 75 18 124/68 H 93 09/19/20 09:25 09/19/20 09:25 09/19/20 09:25 09/19/20 09:25 09/19/20 09:25 Oxygen Delivery Method Room Air Weight: 150 lb 0.005 oz Body Mass Index (BMI) 28.3 Intake and Output for Last 24 Hours 09/17/20 09/18/20 09/19/20 23:59 23:59 23:59 Intake Total 1560 / 1560 600 / 600 100 / 100 Output Total 1475 / 1475 475 / 475 Balance 85 / 85 125 / 125 100 / 100 Microbiology Past 72 Hours 09/15/20 11:04 Urine Catheter - Catheter Urine Culture - Final Presumptive E. coli Current Medications Acetaminophen (Acetaminophen 325 Mg Tablet) 650 mg PO Q6H PRN PRN PRN Reason: Pain Score 1-10/Temp > 100.7 F Last Admin: 09/17/20 18:37 Dose: 650 mg Documented by: Aspirin (Aspirin 81 Mg Tab.Chew) 81 mg PO DAILY@0800 [facility] Last Admin: 09/19/20 09:15 Dose: 81 mg Documented by: Atorvastatin Calcium (Atorvastatin Calcium 40 Mg Tablet) 40 mg PO QHS [facility] Last Admin: 09/18/20 21:51 Dose: 40 mg Documented by: Carbidopa/Levodopa (Carbidopa/Levodopa 25/100 Tablet) 1 tablet PO 1600,1900 [facility] Last Admin: 09/18/20 18:37 Dose: 1 tablet Documented by: Carbidopa/Levodopa (Carbidopa/Levodopa 25/100 Tablet) 2 tablet PO 0800,1200 [facility] Last Admin: 09/19/20 09:16 Dose: 2 tablet Documented by: Ciprofloxacin HCl (Ciprofloxacin 500 Mg Tablet) 500 mg PO BID [facility] Stop: 09/21/20 10:01 Last Admin: 09/19/20 09:17 Dose: 500 mg Documented by: Clonazepam (Clonazepam 1 Mg Tablet) 1 mg PO QHS [facility] Last Admin: 09/18/20 19:27 Dose: 1 mg Documented by: Clopidogrel Bisulfate (Clopidogrel Bisulfate 75 Mg Tablet) 75 mg PO DAILY [facility] Last Admin: 09/16/20 09:52 Dose: 75 mg Documented by: Enoxaparin Sodium (Enoxaparin 40 Mg/0.4 Ml Syringe) 40 mg SC DAILY [facility] Last Admin: 09/19/20 09:17 Dose: 40 mg Documented by: Fluoxetine HCl (Fluoxetine 20 Mg Capsule) 20 mg PO BID [facility] Last Admin: 09/19/20 09:21 Dose: 20 mg Documented by: Hydralazine HCl (Hydralazine 20 Mg/Ml Vial) 10 mg IV Q8H PRN PRN PRN Reason: for SBP>160 Last Admin: 09/18/20 03:09 Dose: 10 mg Documented by: Sodium Chloride () 250 mls @ 15 mls/hr IV .[id number] PRN PRN Reason: Saline Flush Last Infusion: 12/12/20 10:40 Dose: 0 mls/hr Documented by: Metoprolol Tartrate (Metoprolol Tartrate 25 Mg Tablet) 12.5 mg PO BID [facility] Last Admin: 09/19/20 09:17 Dose: 12.5 mg Documented by: Mirtazapine (Mirtazapine 30 Mg Tablet) 30 mg PO QHS [facility] Last Admin: 09/18/20 21:51 Dose: 30 mg Documented by: Ondansetron HCl (Ondansetron 4 Mg/2 Ml Vial) 4 mg IV Q8H PRN PRN PRN Reason: NAUSEA/VOMITING Oxycodone HCl (Oxycodone 5 Mg Tablet) 5 mg PO Q6H PRN PRN PRN Reason: Pain Score 4-10 Last Admin: 09/17/20 22:46 Dose: 5 mg Documented by: Pantoprazole Sodium (Pantoprazole Sodium 40 Mg Tablet) 40 mg PO DAILY [facility] Last Admin: 09/19/20 09:21 Dose: 40 mg Documented by: Senna/Docusate Sodium (Senna/Docusate Sodium 1 Tablet) 2 tablet PO BID PRN PRN PRN Reason: Constipation Last Admin: 09/17/20 10:49 Dose: 2 tablet Documented by: Sodium Chloride (0.9% Saline Lock 10 Ml Syringe) 10 - 40 ml IV UD PRN PRN Reason: SALINE FLUSH Last Admin: 09/18/20 21:49 Dose: 10 ml Documented by: Zolpidem Tartrate (Zolpidem Tartrate 5 Mg Tablet) 5 mg PO QHS PRN PRN PRN Reason: INSOMNIA Last Admin: 09/17/20 22:44 Dose: 5 mg Documented by: Discharge Activity: May Not Drive Weight Bearing Status: Weight bearing as tolerated Call your doctor if you observe: Fever of 101 or Higher, Numbness or Tingling, Change in Color, Inability to urinate, Inability to have a bowel movement, Using more than one pad per hour, Shortness of breath, Dizziness, Fainting spells, Swelling in the ankles, Chest pain, Prolonged hiccoughing, Increased palpitations (irregular heartbeat), Calf discomfort, Uncontrolled pain Home Medications: Medications to take at Discharge Aspirin [Aspirin, Baby] 81 mg PO DAILY@0800 07/20/14 Fluoxetine [Prozac] 20 mg PO BID 07/20/14 Pantoprazole Sodium [Protonix] 40 mg PO DAILY #30 tab 03/07/17 cholecalciferol (vitamin D3) 25 mcg (1,000 unit) tablet 2,000 unit PO DAILY tab 11/28/17 carbidopa 25 mg-levodopa 100 mg tablet 2 tab PO 0800,1200 tab 03/30/19 Carbidopa/Levodopa [Carbidopa-Levodopa 25-100 Tab] 1 tab PO 1600,1900 11/01/19 nitroglycerin 0.4 mg sublingual tablet 0.4 mg SUBLINGUAL Q5M PRN #25 tab 11/03/19 Clonazepam [Klonopin] 1 mg PO QHS 12/10/19 ascorbic acid (vitamin C) 1,000 mg tablet 1 g PO DAILY tab 03/30/20 glucosamine HCl 750 mg tablet 750 mg PO DAILY tab 03/30/20 mirtazapine 30 mg tablet 30 mg PO QHS tab 03/30/20 atorvastatin 40 mg tablet 40 mg PO QHS #90 tab 08/16/20 clopidogrel 75 mg tablet 75 mg PO DAILY #90 tab 08/17/20 Polyethylene Glycol 3350 [Miralax] 17 gm PO DAILY 09/15/20 Ciprofloxacin [Cipro] 500 mg PO BID #2 tab 09/19/20 Metoprolol Tartrate [Lopressor (beta jelly)] 12.5 mg PO BID tab 09/19/20 Following Prescriptions Were Given to Patient: Ciprofloxacin [Cipro] 500 mg PO BID #2 tab Transmission Status: Received by [id number] Primary Care Physician: Ghazala Leigh MD [Primary Care Provider] - Please follow up with your Primary Care Physician in: In 1 to 2 weeks Please Follow Up With: Rodger Underwood MD When: In 2 to 3 weeks Medical Necessity - Tobacco Use Smoking Status: Former smoker Tobacco Use: Cigarettes Meaningful Use Info Meaningful Use Diagnoses (Choose all that apply): None applicable Inpatient E&M: 03483 Disch Hosp Procedures: 47164 Advncd Care Plan 30 Min
--- NOTE | 2020-09-19 12:02 | CASEMGMT ---
Social Work Note SW updated that pt is agreeable to [facility] at [facility]. Per previous phone calls with Loretta in [facility], [facility] has no beds available. Pt will then be returning home with HHC. CECIL CM to speak with pt regarding HHC. Arlin Brooks MSW, P[employer]AGER [employer]ACHINE
--- NOTE | 2020-09-19 12:30 | CASEMGMT ---
CECIL TERRAZAS in to discuss discharge planning with patient and [facility]. Patient is agreeable to [facility] and list on in-network agencies provided. Patient would like [facility]. CECIL TERRAZAS sent referral to [facility] and awaiting call back.
--- NOTE | 2020-09-19 13:40 | PHA.DC.MR ---
Pharmacy Service has performed discharge medication reconciliation for this patient. The patient's discharge medication list was reviewed for discrepancies and discrepancies were resolved. Home Medications Aspirin [Aspirin, Baby] 81 mg PO DAILY@0800 07/20/14 Fluoxetine [Prozac] 20 mg PO BID 07/20/14 Pantoprazole Sodium [Protonix] 40 mg PO DAILY #30 tab 03/07/17 cholecalciferol (vitamin D3) 25 mcg (1,000 unit) tablet 2,000 unit PO DAILY tab 11/28/17 carbidopa 25 mg-levodopa 100 mg tablet 2 tab PO 0800,1200 tab 03/30/19 Carbidopa/Levodopa [Carbidopa-Levodopa 25-100 Tab] 1 tab PO 1600,1900 11/01/19 nitroglycerin 0.4 mg sublingual tablet 0.4 mg SUBLINGUAL Q5M PRN #25 tab 11/03/19 Clonazepam [Klonopin] 1 mg PO QHS 12/10/19 ascorbic acid (vitamin C) 1,000 mg tablet 1 g PO DAILY tab 03/30/20 glucosamine HCl 750 mg tablet 750 mg PO DAILY tab 03/30/20 mirtazapine 30 mg tablet 30 mg PO QHS tab 03/30/20 atorvastatin 40 mg tablet 40 mg PO QHS #90 tab 08/16/20 clopidogrel 75 mg tablet 75 mg PO DAILY #90 tab 08/17/20 Polyethylene Glycol 3350 [Miralax] 17 gm PO DAILY 09/15/20 Ciprofloxacin [Cipro] 500 mg PO BID #2 tab 09/19/20 Metoprolol Tartrate [Lopressor (beta jelly)] 12.5 mg PO BID tab 09/19/20
--- NOTE | 2020-09-19 13:45 | CASEMGMT ---
RN CM received call back from [facility] and they are able to accept the patient. CM went to updated patient but all ready discharge. RN CM will call and update patient at home.
--- NOTE | 2020-09-19 16:46 | NURSING ---
SPOKE W/ YVONNE BY PHONE-SHE IS HOME, SHE WAS TOLD DR NAVARRO WANTS HER TO STOP PLAVIX SINCE IT HAS BEEN 6 YEARS SINCE HER STENT AND HER MULTIPLE RECENT FALLS, WE ALSO WENT OVER HER SINEMET SCHEDULE WHICH IS 25/100 AND 2 TABS @ 0800, 1200, 1 TAB @ 1600 AND 1900-SHE VOICES UNDERSTANDING
--- NOTE | 2020-09-20 14:54 | NURSING ---
RNCM Discharge F/u Call: Discharge Date: 09/19/2020 Discharge Diagnosis: Acute right quadriceps injury (Acute), Acute cystitis (Acute), Frequent falls (Acute), Physical debility (Acute) Lace/Strata: 07/08 Discharge Destination: Home with [facility] Called patient listed home number, Ben Zepeda answered and states patient cannot come to the phone right now because she is currently vomiting. States it is intermittent. Confirmed patient picked up her abx Cipro and taking it. This manual writer informed that Abx can sometimes cause nausea and to eat with it, states only ate a cookie with it- advised to have her try to eat more with it. Informed if patient continues with n/v and unable to keep abx down, will need to call PCP or return to hospital. stated understanding. Denies any questions with [facility]CI or f/u. Patient has called and made an appointment with her PCP. No further questions or needs from the RNCM, call ended. DEAN Luis
== END 2020-09-19 13:29 | disposition home health service (06) | DRG 537 ==
LOC: ED 11:20 → MS3 12:22
PROVIDERS: Admitting Provider Hospitalist; Emergency Provider Emergency Medicine; PCP Family Medicine; Visit Provider Internal Medicine
DX: S76.119A Strain of unspecified quadriceps muscle, fascia and tendon, initial encounter (principal); N30.00 Acute cystitis without hematuria; G20 Parkinson's disease; F17.210 Nicotine dependence, cigarettes, uncomplicated; S00.03XA Contusion of scalp, initial encounter; S80.01XA Contusion of right knee, initial encounter; Z91.81 History of falling; W01.0XXA Fall on same level from slipping, tripping and stumbling without subsequent striking against object, initial encounter; Y92.009 Unspecified place in unspecified non-institutional (private) residence as the place of occurrence of the external cause; Y93.9 Activity, unspecified; Y99.9 Unspecified external cause status; I25.10 Atherosclerotic heart disease of native coronary artery without angina pectoris; E78.5 Hyperlipidemia, unspecified; I10 Essential (primary) hypertension; E66.9 Obesity, unspecified; G47.33 Obstructive sleep apnea (adult) (pediatric); K58.9 Irritable bowel syndrome, unspecified; F32.9 Major depressive disorder, single episode, unspecified; F41.9 Anxiety disorder, unspecified; K21.9 Gastro-esophageal reflux disease without esophagitis; B96.20 Unspecified Escherichia coli [E. coli] as the cause of diseases classified elsewhere
CPT/HCPCS: 36415; 70450; 71045; 72125; 73502; 73564; 73718; 80048; 81001; 82962; 85025; 85610; 87086; 87088; 87186; 93005; 97110; 97116; 97162; 97166; 97530; 97535; 99251; 99285; J7030; J7050; A4216; G0463

== ENCOUNTER 2020-10-03 11:34 | Emergency (ER) | payer MEDICARE, SELFPAY ==
[2020-09-15 12:41] VITALS: BMI 28.3
[2020-10-03] VITALS (10 sets, daily range): BP systolic 96–171; BP diastolic 49–85; PULSE 54–78; RESP 14–24; TEMP 36.3; O2SAT 93–99; BMI 30.7
--- NOTE | 2020-10-03 12:06 | ED.VIS.GEN ---
History of Present Illness Chief Complaint: Fall Narrative: 70-year-old female presenting with right shoulder pain. She presents via EMS with her arm over her head screaming in pain. She states that she fell but cannot describe the mechanism. She did not hit her head or lose consciousness however. Patient states that her whole right shoulder hurts. - Past Medical History (1) Frequent falls Status: Chronic (2) Atherosclerotic heart disease of [place] coronary artery with other forms of angina pectoris Status: Chronic (3) Essential (primary) hypertension Status: Chronic (4) HLD (hyperlipidemia) Status: Chronic (5) History of coronary artery stent placement Status: Chronic Comment: PCI-AGUSTO to RCA 02/19/2008; PCI-AGUSTO-Mid LAD 10/08/2013 Past Medical History - Allergies and Home Meds Allergies/Adverse Reactions: Allergies celecoxib [From Celebrex] Allergy (Verified 10/03/20 11:35) Itching fentanyl Allergy (Verified 10/03/20 11:35) Other HALLUCINATIONS Opioids - Morphine Analogues Allergy (Verified 10/03/20 11:35) hallucinate promethazine HCl [From Phenergan] Adverse Reaction (Verified 10/03/20 11:35) hallucinate Primary Care Physician: Ghazala Leigh MD [Primary Care Provider] - Prior records reviewed: Yes Surgical History: noncontributory, - - Cardiac stent placement 2007, 2013. Carpal tunnel surgery Lives: Spouse/ Significant Other Smoking Status: Former smoker Alcohol: None Drugs: None - Family History Maternal Family History: Family History (Last Reviewed 09/15/20 @ 14:[address] Delbert Edwards MD) Father CAD (coronary artery disease) Mother CAD (coronary artery disease) Other Family history of hyperlipidemia Family history of hypertension Family History: Reports: Heart Disease Paternal Family History: Family History (Last Reviewed 09/15/20 @ 14:[address] Delbert Edwards MD) Father CAD (coronary artery disease) Mother CAD (coronary artery disease) Other Family history of hyperlipidemia Family history of hypertension Family History: Reports: Heart Disease Review of Systems General: Denies: Chills, Fever, Sweats Eyes: Denies: Visual changes - bilaterally, Diplopia ENT: Denies: Rhinorrhea, Sore throat Cardiovascular: Denies: Chest pain, Palpitations Respiratory: Denies: Dyspnea, Cough, Dyspnea on exertion Gastrointestinal: Denies: Abdominal pain, Nausea, Vomiting, Diarrhea, Melena, Hematochezia Genitourinary: Denies: Dysuria, Hematuria, Frequency Musculoskeletal: Reports: Arthralgias. Denies: Neck pain, Back pain - Right shoulder pain. Inability to move right shoulder secondary to pain. Skin: Denies: Rash, Wounds Neurological: Denies: Headache, Weakness, Numbness Physical Exam Vital Signs/Narrative: Vital Signs Temp Pulse Resp BP Pulse Ox 10/03/20 11:35 97.4 F L 70 22 H 119/55 L 96 General: Well nourished, Well developed, Acute Distress Eyes: Perrl, EOMI ENT: Moist mucous membranes, No rhinorrhea Cardiovascular: Regular rate, Regular rhythm Respiratory: No distress, CTA bilaterally Back: Nontender Extremities: - - Right shoulder is a be ducted with patient's arm behind head. I am unable to move this secondary to pain. Radial pulse 2+. Diagnostic/Tx/Re-eval Clinical Impression(s) from Imaging Studies Shoulder X-Ray 10/03/20 12:07 IMPRESSION: There is anterior dislocation of the humerus head. Avulsion fracture of the greater tuberosity. Electronically Signed: Irwin Bailey, at 12:33 EST Tel , Service support , Shoulder X-Ray 10/03/20 13:08 IMPRESSION: There is persistent anterior dislocation of the humerus head. Displaced avulsion fracture of the greater tuberosity. Electronically Signed: Irwin Bailey, at 13:24 EST Tel , Service support , Shoulder X-Ray 10/03/20 13:43 IMPRESSION: Reduced dislocation. Electronically Signed: Irwin Bailey, at 13:56 EST Tel , Service support , - Medical Decision Making 1-year-old female presents with right shoulder pain. She states she had a fall but cannot describe the mechanism. Initially on arrival her hand was overhead and abduction. Right shoulder x-ray interpreted by myself and the radiologist shows right shoulder dislocation with a fracture fragment consistent with avulsion fracture of the greater tuberosity. After patient x-ray was done she was consented for closed reduction of right shoulder dislocation with conscious sedation with propofol. She was sedated with 100 cc total of propofol. Initial time of conscious sedation was 10 minutes. Initial follow-up x-ray is interpreted by myself and the radiologist does show that this is still not an anatomical alignment. Patient was then resedated with 40 cc of propofol. Total sedation time of the second reduction was about 10 minutes. Traction countertraction method was used to reduce the shoulder into anatomical alignment. She was placed in a sling and swath. Follow-up right shoulder x-ray is interpreted by myself and the radiologist does show good anatomic alignment. Patient will follow up with Dr. Jerez. I did speak with him prior to closed reduction due to the fracture fragment. He was amenable to me reducing the shoulder. He will see her in follow-up. Patient will be given oxycodone for home. Impression: 1. Avulsion fracture right tuberosity 2. Right shoulder dislocation 3. Mechanical fall ED Disposition - Plan for ED Patient: Disposition: Home or Assisted Living Instructions: ED Dislocation: Shoulder (Reduced), ED Fracture, Shoulder Referrals: Ghazala Leigh MD [Primary Care Provider] -
--- NOTE | 2020-10-03 12:07 | RAD_ITS ---
STUDY: X-RAY - RIGHT SHOULDER REASON FOR EXAM: Female, 70 years old. Pt. fell, pain TECHNIQUE: 1 view(s) of the shoulder. COMPARISON: None. FINDINGS: There is anterior dislocation of the humerus head. Avulsion fracture of the greater tuberosity. Normal acromioclavicular joint. Normal acromion. The soft tissue structures are unremarkable. Normal visualized pulmonary apex. RAD/Shoulder One View IMPRESSION: There is anterior dislocation of the humerus head. Avulsion fracture of the greater tuberosity. Electronically Signed: Irwin Bailey, at 12:33 EST Tel , Service support ,
[2020-10-03] MEDS: fentaNYL 100 MCG/2 ML Ampul 50 MCG IV (12:10)
[2020-10-03] MEDS: Ondansetron 4 MG/2 ML Vial IM (12:15)
[2020-10-03] MEDS: Propofol 200 MG/20 ML Vial IV BOLUS (13:00)
--- NOTE | 2020-10-03 13:08 | RAD_ITS ---
STUDY: X-RAY - RIGHT SHOULDER REASON FOR EXAM: Female, 70 years old. POST REDUCTION RIGHT SHOULDER. TECHNIQUE: 2 view(s) of the shoulder. COMPARISON: None. FINDINGS: There is persistent anterior dislocation of the humerus head. Displaced avulsion fracture of the greater tuberosity. The soft tissue structures are unremarkable. Normal visualized pulmonary apex. RAD/Shoulder min 2 Views IMPRESSION: There is persistent anterior dislocation of the humerus head. Displaced avulsion fracture of the greater tuberosity. Electronically Signed: Irwin Bailey, at 13:24 EST Tel , Service support ,
--- NOTE | 2020-10-03 13:43 | RAD_ITS ---
STUDY: X-RAY - RIGHT SHOULDER REASON FOR EXAM: Female, 70 years old. POST REDUCTION TECHNIQUE: 2 view(s) of the shoulder. COMPARISON: None. FINDINGS: There is reduced dislocation of the glenohumeral joint. The avulsion fracture of the greater tuberosity is not visualized on these views. The soft tissue structures are unremarkable. Normal visualized pulmonary apex. RAD/Shoulder min 2 Views IMPRESSION: Reduced dislocation. Electronically Signed: Irwin Bailey, at 13:56 EST Tel , Service support ,
== END 2020-10-03 14:51 | disposition home or self-care (01) ==
PROVIDERS: Emergency Provider Student in an Organized Health Care Education/Training Program; PCP Family Medicine
DX: S43.004A Unspecified dislocation of right shoulder joint, initial encounter (principal); I25.10 Atherosclerotic heart disease of native coronary artery without angina pectoris; W19.XXXA Unspecified fall, initial encounter; Z95.5 Presence of coronary angioplasty implant and graft; Z87.891 Personal history of nicotine dependence
CPT/HCPCS: 73020; 73030; 96361; 96372; 96374; 96375; 99152; 99153; 99285; A4216; J2405

== ENCOUNTER 2020-10-18 11:50 | Emergency (ER) | payer MEDICARE, SELFPAY ==
[2020-10-03 11:35] VITALS: BMI 30.7
[2020-10-18 11:52] VITALS: BP 118/80; PULSE 54; RESP 16; TEMP 36.6; O2SAT 97; BMI 27.6
--- NOTE | 2020-10-18 12:08 | EKG12_ITS ---
Test Reason : LOW BP Blood Pressure : / mmHG Vent. Rate : 053 BPM Atrial Rate : 053 BPM P-R Int : 134 ms QRS Dur : 084 ms QT Int : 440 ms P-R-T Axes : 021 -11 -55 degrees QTc Int : [address] & T wave abnormality, consider anterolateral ischemia Abnormal ECG Confirmed by IGNACIO LOPEZ, MARIA G ([id number]), general expeditor ANNA FRASER ([id number]) on 10/23/2020 11:01:06 AM Referred By: GISEL Confirmed By:ANGEL PIERRE MD
--- NOTE | 2020-10-18 12:09 | ED.DCSUM_ITS ---
- ER Visit Summary Date of Service: 10/18/20 Chief Complaint: Low blood pressure History of Present Illness: The patient is a 70 F with 2 cardiac stents and treated for hypertension. Patient states for the last 6 to 12 months she has had transient episodes of hypotension primarily in the morning. She is on blood pressure medication and believes his metoprolol. States she takes it twice a day once in the morning and once in the evening. States that she has a history of Parkinson's disease and when her blood pressure drops she gets more unsteady and sometimes falls. She fell about 2 weeks ago and has a humerus fracture. She denies being ill. She denies any nausea, vomiting, diarrhea or melena. She denies any dysuria. She denies any fever or chills. She denies any abdominal pain, shortness of breath or cough. Currently she feels fine. Physical Examination: Older female no acute distress vital signs stable afebrile. Currently her blood pressure is 118/80. Pulse ox 97% on room air no signs hypoxia. HEENT exam unremarkable atraumatic. Pupils round reactive ligh t. Moist use membranes. Neck nontender. Lungs clear to auscultation bilaterally. Heart regular rhythm rate about 55 no murmur. Abdomen soft nontender normal bowel sounds no peritoneal signs. Patient moving all 4 extremities. Calves nontender without edema or cords. Neurologically the patient is awake and alert with no focal motor deficits. Test Results: EKG shows sinus bradycardia rate of 53 with inverted T waves ways the 1 through 6 no acute signs of [place]. No dysrhythmia. And an EKG was also done in September which is the same as today. The T wave inversion was also seen on that one. CBC shows a white count of 6 hemoglobin 13. No bands. Electrolytes unremarkable normal creatinine and gap. Orthostatic vital signs were done. The patient was 193/81 standing 145/78 with orthostasis. Repeat exam patient is doing well at 1:17 PM. She is comfortable being discharged home. Emergency Department Course and Treatment: Older female treated for hypertension. But having episodes of hypotension over the last 6 to 12 months. Clinically her exam is unremarkable. She does have a sling on her right arm due to her recent fall and humerus fracture. Otherwise no acute findings on her exam. Treatment Plan: Monitor blood pressures at least twice a day for the next several days. Log blood pressures follow-up with your doctor see if they need to adjust her medications. At this time we will hold her morning dose of the blood pressure medication. She will take it at night. And then check her blood pressure in the morning. If her pressures running lower than 140/90 I would hold her blood pressure medication the morning. If it is higher than that I would go and take it. Follow-up with your doctor in the next 5+ days to see if they need to again adjust your blood pressure medications or when she takes them. Disposition: Discharge Impression: Transient hypotension History of hypertension. History of Parkinson's disease This note was generated with [employer] software. It may contain incorrect words, spelling, and punctuation that were not noted in review of the chart prior to signing ED Disposition - Plan for ED Patient: Referrals: Ghazala Leigh MD [Primary Care Provider] -
[2020-10-18 12:40] LABS: Absolute Neutrophil Count 4.8 X10^3/uL (2.0-7.7); Basophil# 0.03 X10^3/uL; Basophil% 0.5 % (0-1); Eosinophil# 0.06 X10^3/uL; Hematocrit 42.8 % (37-47); Hemoglobin 13.7 g/dL (12.0-15.0); Lymphocyte % 12.8 % (19-41); Mean Corpuscular Hgb 30.3 pg (27.0-32.0); Mean Corpuscular Volume 94.7 fL (81-99); Mean Platelet Vol. 12.1 fl (6.2-12.0); Monocyte# 0.53 X10^3/uL; Monocyte% 8.5 % (0-10); NRBC Flagged by Analyzer 0 % (0-5); Neutrophil # 4.78 X10^3/uL (2.7-7.7); Neutrophil % 76.7 % (47-70); Platelet Count 196 K/mm3 (150-450); RBC Distribution Width CV 13.5 % (11.6-14.6); RBC Distribution Width SD 47.7 fl (35.1-43.9); Red Blood Count 4.52 M/mm3 (4.2-5.4); White Blood Count 6.2 K/mm3 (4.4-11.0)
[2020-10-18 12:49] LABS: Anion Gap 5 (5-15); BUN 15 mg/dL (7-18); BUN/Creat Ratio 13.6 RATIO (10-20); Chloride 106 mmol/L (98-107); EST Glomerular Filtration Rate 52 mL/min (>60); Est Glom Filt Rate - Afr Amer 63 mL/min (>60); Estimated Creatinine Clearance 36.56 ml/min; Glucose 88 mg/dL (74-106); Potassium 3.6 mmol/L (3.5-5.1); Sodium Level 139 mmol/L (136-145)
[2020-10-18 12:55] VITALS: BP 145/78; BP 178/119; BP 193/81; PULSE 55; PULSE 65; PULSE 66
--- NOTE | 2020-10-18 13:25 | DCINST.ED_ITS ---
ED Disposition - Plan for ED Patient: Disposition: Home or Assisted Living Instructions: ED Hypotension, Orthostatic Referrals: Ghazala Leigh MD [Primary Care Provider] - 5-7 Days Additional Instructions: Call and follow-up with your primary care doctor. Log your blood pressures twice a day for the next 3 to 5 days. When you follow-up with your primary care doctor show them the blood pressure readings. I would take it in the morning an d again in the evening. Your current blood pressure medication I would only take it in the evening. I think the morning dose is dropping your blood pressure. If your blood pressure in the morning is running higher than 140/90 then I would take your morning dose. If it is running below 140/90 I would hold that dose unless your blood pressure gets higher. Follow-up with your primary care physician to see if they need to adjust either your blood pressure medication or the dosage or when you take it.
[2020-10-18 13:48] VITALS: BP 156/115; PULSE 54; RESP 18; O2SAT 99
== END 2020-10-18 13:49 | disposition home or self-care (01) ==
PROVIDERS: Emergency Provider Emergency Medicine; PCP Family Medicine
DX: I95.9 Hypotension, unspecified (principal); I10 Essential (primary) hypertension; Z95.5 Presence of coronary angioplasty implant and graft
CPT/HCPCS: 80048; 85025; 93005; 99285; A4216

== ENCOUNTER 2020-10-19 17:37 | Inpatient (IN) | payer MEDICARE, SELFPAY ==
[2020-10-18 11:52] VITALS: BMI 27.6
[2020-10-19 17:43] VITALS: BP 126/59; PULSE 64; RESP 16; TEMP 36.6; O2SAT 94
[2020-10-19 19:15] VITALS: BMI 28.3
[2020-10-19 19:45] VITALS: BMI 28.3
[2020-10-19] MEDS: oxyCODONE 5 MG Tablet PO (19:50)
[2020-10-19 19:52] VITALS: BMI 27.0
--- NOTE | 2020-10-19 21:17 | PCM.HP.STD ---
Problem List (1) Debility Status: Acute (2) Orthostatic hypotension Status: Acute (3) Rupture of right quadriceps tendon Status: Chronic (4) Dislocation of right shoulder joint Status: Chronic (5) Coronary artery disease Status: Chronic (6) Hypertension Status: Chronic (7) Depression Status: Chronic (8) Insomnia Status: Chronic (9) Appetite loss Status: Chronic (10) Frequent falls Status: Chronic (11) Parkinsons disease Status: Chronic (12) HLD (hyperlipidemia) Status: Chronic Qualifiers: History of Present Illness Date of Admission: 10/19/20 Chief Complaint: Here for rehabilitation, strengtheing, prior to dischare home with . The patient is a 70 year old Female with below past medical history significant for Parkinson Disease with followin09/15/20 Right quadriceps tendon rupture, offered SNF, but chose to go home. 10/03/20 Right shoulder dislocation, avulsion fracture right tuberosity. 10/18/20 Transient hypotension. 10/19/20 Admit to TCU with debility, here for rehabilitation, strengthening, prior to discharge home with . Past Medical History Past Medical History (Chronic Problems): Chronic Problems (Last Reviewed 03/30/20 @ 11:[address] Frandy Tarango MD) Rupture of right quadriceps tendon (Chronic) Dislocation of right shoulder joint (Chronic) Coronary artery disease (Chronic) Hypertension (Chronic) Depression (Chronic) Insomnia (Chronic) Appetite loss (Chronic) Frequent falls (Chronic) Hyperlipidemia (Chronic) Parkinsons disease (Chronic) Atherosclerotic heart disease of [place] coronary artery with other forms of angina pectoris (Chronic) History of coronary artery stent placement (Chronic 10/08/13) PCI-AGUSTO to RCA 02/19/2008; PCI-AGUSTO-Mid LAD 10/08/2013 Essential (primary) hypertension (Chronic) HLD (hyperlipidemia) (Chronic) Medical History: Medical History (Last Reviewed 03/30/20 @ 11:[address] Frandy Tarango MD) Atherosclerotic heart disease of [place] coronary artery with other forms of angina pectoris (Chronic) I25.118 Essential (primary) hypertension (Chronic) I10 HLD (hyperlipidemia) (Chronic) E78.5 Anxiety F41.9 Depression F32.9 GERD (gastroesophageal reflux disease) K21.9 History of anesthesia reaction Z87.898 Irritable bowel syndrome Obesity E66.9 Obstructive sleep apnea G47.33 Parkinson disease G20 Piriformis syndrome of left side G57.02 REM sleep behavior disorder G47.52 Strain of right piriformis muscle S76.311A Biliary dyskinesia K82.8 Allergies celecoxib [From Celebrex] Allergy (Verified 10/18/20 11:58) Itching fentanyl Allergy (Verified 10/18/20 11:58) Other HALLUCINATIONS Opioids - Morphine Analogues Allergy (Verified 10/18/20 11:58) hallucinate promethazine HCl [From Phenergan] Adverse Reaction (Verified 10/18/20 11:58) hallucinate Home Medications: Ambulatory Orders Medication Instructions Recorded Aspirin [Aspirin, Baby] 81 mg PO DAILY@0800 07/20/14 Fluoxetine [Prozac] 20 mg PO TID 07/20/14 cholecalciferol (vitamin D3) 25 2,000 unit PO DAILY tab 11/28/17 mcg (1,000 unit) tablet nitroglycerin 0.4 mg sublingual 0.4 mg SUBLINGUAL Q5M PRN #25 tab 11/03/19 tablet Clonazepam [Klonopin] 1 mg PO QHS 12/10/19 ascorbic acid (vitamin C) 1,000 mg 1 g PO DAILY tab 03/30/20 tablet glucosamine HCl 750 mg tablet 750 mg PO DAILY tab 03/30/20 mirtazapine 30 mg tablet 30 mg PO QHS tab 03/30/20 Polyethylene Glycol 3350 [Miralax] 17 gm PO DAILY 09/15/20 Ciprofloxacin [Cipro] 500 mg PO BID #2 tab 09/19/20 Amlodipine [Norvasc] 5 mg PO DAILY 10/19/20 Atorvastatin Calcium [Lipitor] 40 mg PO QHS 10/19/20 Carbidopa/Levodopa 25/250 [Sinemet 0.5 tab PO BID 10/19/20 25/250] Carbidopa/Levodopa 25/250 [Sinemet 1 tab PO BID 10/19/20 25/250] Metoprolol Tartrate [Lopressor 12.5 mg PO BID 10/19/20 (beta jelly)] Oxycodone [Oxyir] 5 mg Q6H PRN PRN 10/19/20 Pantoprazole Sodium [Protonix] 40 mg PO DAILY 10/19/20 Ropinirole HCl [Ropinirole ER] 4 mg PO 10/19/20 Surgical History: Surgical History (Last Updated 09/15/20 @ 14:[address] Delbert Edwards MD) History of coronary artery stent placement (Chronic) Onset Date: 10/08/13 Z95.5 PCI-AGUSTO to RCA 02/19/2008; PCI-AGUSTO-Mid LAD 10/08/2013 History of carpal tunnel release of both wrists Z98.890 History of cataract extraction Z98.49 bilateral History of cholecystectomy Onset Date: 12/16/19 Z90.49 History of hysterectomy Z90.710 History of left heart catheterization Onset Date: 04/11/17 Z98.890 08/02/2008 ,10/08/2013, 04/11/2017 History of nasal polypectomy Z98.890, Z87.09 Surgical History: cataract, cholecystectomy, hysterectomy - Total., - - Cardiac stent placement 2007, 2013. Bilateral Carpal tunnel surgery, Rhinoplasty. 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 Delbert Edwards MD) Father CAD (coronary artery disease) Mother CAD (coronary artery disease) Other Family history of hyperlipidemia Family history of hypertension History Items: Heart Disease Paternal Family History: Family History (Last Reviewed 09/15/20 @ 14:[address] Delbert Edwards MD) Father CAD (coronary artery disease) Mother CAD (coronary artery disease) Other Family history of hyperlipidemia Family history of hypertension History Items: Heart Disease Review of Systems Constitutional: Denies: Chills, Fever, Weight Change HEENT: Denies: Head Aches, Sinus Congestion, Sinus Drainage Cardiovascular: Denies: Chest Pain, Palpitations Respiratory: Denies: Cough, Shortness of breath at rest, Sputum production Gastrointestinal: Denies: Abdominal Pain, Nausea, Vomiting Genitourinary: Denies: Dysuria Musculoskeletal: Denies: Joint Pain, Joint Tenderness Skin: Denies: Rash, Wounds Neurological: Denies: Numbness, Tingling, Focal weakness Psychiatric: Denies: Anxiety, Depression, Homicidal Ideations, Suicidal Ideations Hematologic/ Lymphatic: Denies: Easy Bruising, Easy Bleeding VTE Information - Inpt Only VTE Present on Admission: No VTE Mechan Device Prophylaxis: Knee High ROSALBA Hose VTE Pharm Prophylaxis ordered?: No Reason prophylaxis not ordered:: Treatment Not Indicated - Physical Exam Vitals/I&O's: Weight: 64.864 kg Body Mass Index (BMI) 27.0 General: Alert, Oriented x3, Cooperative HEENT: Atraumatic, PERRLA, EOMI, Normocephalic Neck: Supple, No JVD, Negative Carotid Bruits Lungs: Clear to auscultation, Normal air movement Cardiovascular: Regular rate, No murmurs Abdomen: Bowel Sounds Present, Soft, Non Tender Extremities: No edema, Capillary Refill Less than 3 Seconds Skin: No rashes, No breakdown Musculoskeletal: No Tenderness to Palpation of Joints or Extremities Neurological: Cranial nerves II-XII grossly intact, - - Chorea noted. Psych/Mental Status: Normal Affect, Appropriate Current Medications Amlodipine Besylate (Amlodipine 5 Mg Tablet) 5 mg PO DAILY [facility] Aspirin (Aspirin 81 Mg Tab.Chew) 81 mg PO DAILY@0800 [facility] Atorvastatin Calcium (Atorvastatin Calcium 40 Mg Tablet) 40 mg PO QHS [facility]EN[facility]ER Carbidopa/Levodopa (Carbidopa/Levodopa 25/100 Tablet) tablet PO 1600,1900 YEN[facility]ER Carbidopa/Levodopa (Carbidopa/Levodopa 25/100 Tablet) 2 tablet PO 0800,1200 Y[facility] Carbidopa/Levodopa (Carbidopa/Levodopa 25/250 Tablet) tablet PO BID YENIFER Carbidopa/Levodopa (Carbidopa/Levodopa 25/250 Tablet) tablet PO BID [facility] Fluoxetine HCl (Fluoxetine 20 Mg Capsule) 20 mg PO TID [facility] Metoprolol Tartrate (Metoprolol Tartrate 25 Mg Tablet) 12.5 mg PO BID YENIFER Mirtazapine (Mirtazapine 30 Mg Tablet) 30 mg PO QHS [facility] Oxycodone HCl (Oxycodone 5 Mg Tablet) 5 mg PO Q6H PRN PRN PRN Reason: Pain Score 6-10 Last Admin: 10/19/20 19:50 Dose: 5 mg Documented by: Pantoprazole Sodium (Pantoprazole Sodium 40 Mg Tablet) 40 mg PO DAILY [facility] Polyethylene Glycol (Polyethylene Glycol 3350 17 Gm Packet) 17 gm PO DAILY [facility] Pramipexole Dihydrochloride (Pramipexole Di-Hcl 0.125 Mg Tablet) 0.375 mg PO TID YENIFER Tuberculin PPD (Tuberculin,Purif.Prot.Deriv. 50 Tu/Ml Vial) 5 tu ID X1 ONE Stop: 10/20/20 10:01 Tuberculin PPD (Tuberculin,Purif.Prot.Deriv. 50 Tu/Ml Vial) 5 tu ID X1 ONE Stop: 10/27/20 10:01 Assessment/Plan All Active Problems (Last Reviewed 03/30/20 @ 11:[address] Frandy Tarango MD) Debility (Acute) Orthostatic hypotension (Acute) Acute right quadriceps injury (Acute) Acute cystitis (Acute) Physical debility (Acute) 70 year old female with below past medical history significant for Parkinson Disease, multiple recent falls, orthostatic hypotension, admitted to TCU with debility, here for rehabilitation, strengthening, prior to discharge home with . Debility - PT/OT. Pain - Tylenol 1000MG Q6H PRN pain (1-5), Oxycodone 5MG Q6H PRN pain (6-10). Bowel - Miralax 17GM daily, Senna/colace 1 tablet BID, MOM 30ML daily PRN, Dulcolax 10MG [place] daily PRN. Adult immunization - Administer Prevnar 13, Pneumovax 23, Fluzone, COVID19 vaccine as appropriate. DVT prophylaxis - Hold, high risk of falls. Hypertension - Metoprolol 12.5MG BID, Amlodipine 5MG daily. Coronary Artery Disease - Metoprolol 12.5MG BID, Aspirin 81MG daily. Hyperlipidemia - Atorvastatin 40MG QHS. Parkinson Disease - Sinemet 25/100MG 2 AM, 2 Lunch, 1 dinner, 1 7PM, Mirapex 0.375MG TID. Depression - Fluoxetine 20MG BID, stable chronic fci use, GDR not recommended. 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 GERD - Pantoprazole 40MG daily. Orthostatic hypotension - Check orthostatic vital signs.
[2020-10-19] MEDS: Mirtazapine 30 MG Tablet PO (21:23)
[2020-10-19] MEDS: FLUoxetine 20 MG Capsule PO (21:23)
[2020-10-19] MEDS: Atorvastatin Calcium 40 MG Tablet PO (21:23)
[2020-10-19] MEDS: Pramipexole Di-HCl 0.125 MG Tablet 0.375 MG PO (21:39)
[2020-10-19] MEDS: Carbidopa/Levodopa 25/250 Tablet PO (22:45)
[2020-10-20 06:09] LABS: Absolute Lymphocyte Count 1.68 X10^3/uL (0.83-4.51); Absolute Neutrophil Count 3.3 X10^3/uL (2.0-7.7); Basophil# 0.04 X10^3/uL; Basophil% 0.7 % (0-1); Eosinophil# 0.18 X10^3/uL; Eosinophils% 3.1 % (0-5); Hematocrit 41.4 % (37-47); Hemoglobin 12.7 g/dL (12.0-15.0); Lymphocyte # 1.68 X10^3/ul (4.0); Lymphocyte % 28.7 % (19-41); Mean Corp Hgb Conc 30.7 g/dL (32-36); Mean Corpuscular Hgb 29.6 pg (27.0-32.0); Mean Corpuscular Volume 96.5 fL (81-99); Mean Platelet Vol. 12.3 fl (6.2-12.0); Monocyte% 10.3 % (0-10); NRBC Flagged by Analyzer 0 % (0-5); Neutrophil # 3.32 X10^3/uL (2.7-7.7); Neutrophil % 56.7 % (47-70); Platelet Count 170 K/mm3 (150-450); RBC Distribution Width CV 13.7 % (11.6-14.6); RBC Distribution Width SD 48.4 fl (35.1-43.9); Red Blood Count 4.29 M/mm3 (4.2-5.4); White Blood Count 5.9 K/mm3 (4.4-11.0)
[2020-10-20 06:20] VITALS: BP 183/75; PULSE 65; RESP 16; TEMP 37; O2SAT 92
[2020-10-20] MEDS: Carbidopa/Levodopa 25/250 Tablet PO ×4 (06:26→20:35)
[2020-10-20] MEDS: amLODIPine 5 MG Tablet PO (06:27)
[2020-10-20] MEDS: Pantoprazole Sodium 40 MG Tablet PO (06:27)
[2020-10-20] MEDS: FLUoxetine 20 MG Capsule PO ×2 (06:27→13:34)
[2020-10-20 06:28] VITALS: BP 183/75; PULSE 65
[2020-10-20] MEDS: Pramipexole Di-HCl 0.125 MG Tablet 0.375 MG PO ×3 (06:28→20:36)
[2020-10-20] MEDS: Metoprolol Tartrate 25 MG Tablet 12.5 MG PO ×2 (06:28→17:56)
[2020-10-20 06:36] LABS: Anion Gap 5 (5-15); BUN 19 mg/dL (7-18); BUN/Creat Ratio 19.3 RATIO (10-20); Calcium,Total 8.4 mg/dL (8.5-10.1); Chloride 107 mmol/L (98-107); Creatinine, Serum 0.98 mg/dL (0.55-1.02); EST Glomerular Filtration Rate 59 mL/min (>60); Est Glom Filt Rate - Afr Amer 72 mL/min (>60); Estimated Creatinine Clearance 39.16 ml/min; Glucose 94 mg/dL (74-106); Potassium 3.3 mmol/L (3.5-5.1); Sodium Level 139 mmol/L (136-145)
[2020-10-20] MEDS: Aspirin 81 MG TAB.CHEW PO (08:06)
[2020-10-20] MEDS: oxyCODONE 5 MG Tablet PO (09:00)
[2020-10-20] MEDS: Acetaminophen 500 MG Tablet 1000 MG PO ×2 (11:20→22:31)
--- NOTE | 2020-10-20 12:08 | NURSING ---
Spoke with Clinical cordinator at [facility] regarding what Dr Reed would like for Rt shoulder as far as movement, etc. Clinical coordinator states that she has been seeing [facility] for all this so will fax us her notes.
[2020-10-20] MEDS: Tuberculin,Purif.prot.deriv. 50 TU/ML Vial 5 ML ID (13:36)
[2020-10-20 13:50] VITALS: BP 114/64; PULSE 77; RESP 19; TEMP 36.6
--- NOTE | 2020-10-20 16:44 | CASEMGMT ---
Social Work Discussed code status with pt. Pt wishes to be DNR-CCA, no intubation. MOLST form reviewed, communication to , placed in chart. Pt emotional when asked about depression/anxiety. Provided emotional support and some counseling to assist. Pt agreeable to increase in meds. Notified Dr. Louis. Discussed counseling at [facility]. Pt considering. Discussed loss of independence, feeling like she let people down, and reframing her mindset. Pt appreciative. SW will continue to follow. Brianna Erickson, AUTOMOTIVE SERVICE ASSISTANT DECORATING INSPECTOR
[2020-10-20 17:56] VITALS: PULSE 72
[2020-10-20] MEDS: FLUoxetine 20 MG Capsule 40 MG PO (17:56)
[2020-10-20 18:35] VITALS: BP 100/53; BP 124/56; BP 99/48; PULSE 63; PULSE 80; PULSE 81
[2020-10-20] MEDS: Atorvastatin Calcium 40 MG Tablet PO (20:36)
[2020-10-20] MEDS: Mirtazapine 30 MG Tablet PO (20:37)
--- NOTE | 2020-10-20 21:54 | PCA ---
Pt declining to wash up for the evening. EM
[2020-10-21 06:09] VITALS: BP 161/74; PULSE 59; RESP 16; TEMP 37.1; O2SAT 90
[2020-10-21 06:11] VITALS: BP 161/74; PULSE 59
[2020-10-21] MEDS: Pramipexole Di-HCl 0.125 MG Tablet 0.375 MG PO ×3 (06:11→19:52)
[2020-10-21] MEDS: FLUoxetine 20 MG Capsule 40 MG PO ×2 (06:11→17:16)
[2020-10-21] MEDS: Metoprolol Tartrate 25 MG Tablet 12.5 MG PO ×2 (06:11→17:10)
[2020-10-21] MEDS: Pantoprazole Sodium 40 MG Tablet PO (06:12)
[2020-10-21] MEDS: amLODIPine 5 MG Tablet PO (06:12)
[2020-10-21] MEDS: Carbidopa/Levodopa 25/250 Tablet PO ×4 (06:12→19:51)
[2020-10-21] MEDS: Aspirin 81 MG TAB.CHEW PO (09:16)
[2020-10-21] MEDS: traMADol 50 MG Tablet PO (09:20)
[2020-10-21 13:54] VITALS: BP 107/71; PULSE 62; RESP 16; TEMP 35.8; O2SAT 96
[2020-10-21 17:10] VITALS: BP 167/77; PULSE 66
[2020-10-21] MEDS: Mirtazapine 30 MG Tablet PO (19:52)
[2020-10-21] MEDS: Atorvastatin Calcium 40 MG Tablet PO (19:53)
[2020-10-22 05:38] VITALS: BP 153/81; PULSE 61; RESP 18; TEMP 36.3; O2SAT 93
[2020-10-22] MEDS: Pramipexole Di-HCl 0.125 MG Tablet 0.375 MG PO ×3 (05:40→20:30)
[2020-10-22] MEDS: FLUoxetine 20 MG Capsule 40 MG PO ×2 (05:40→17:46)
[2020-10-22 05:41] VITALS: BP 153/81; PULSE 61
[2020-10-22] MEDS: Metoprolol Tartrate 25 MG Tablet 12.5 MG PO ×2 (05:41→17:46)
[2020-10-22] MEDS: amLODIPine 5 MG Tablet PO (05:41)
[2020-10-22] MEDS: Pantoprazole Sodium 40 MG Tablet PO (05:41)
[2020-10-22] MEDS: Carbidopa/Levodopa 25/250 Tablet PO ×4 (05:41→20:28)
[2020-10-22 06:46] LABS: Anion Gap 6 (5-15); BUN 17 mg/dL (7-18); Calcium,Total 8.9 mg/dL (8.5-10.1); Chloride 108 mmol/L (98-107); Creatinine, Serum 0.95 mg/dL (0.55-1.02); EST Glomerular Filtration Rate 62 mL/min (>60); Est Glom Filt Rate - Afr Amer 75 mL/min (>60); Estimated Creatinine Clearance 40.39 ml/min; Glucose 89 mg/dL (74-106); Potassium 3.8 mmol/L (3.5-5.1); Sodium Level 140 mmol/L (136-145)
[2020-10-22] MEDS: Aspirin 81 MG TAB.CHEW PO (08:08)
[2020-10-22] MEDS: Acetaminophen 500 MG Tablet 1000 MG PO ×2 (09:04→20:26)
[2020-10-22 13:43] VITALS: BP 145/65; PULSE 64; RESP 17; TEMP 36.3; O2SAT 90
[2020-10-22 17:46] VITALS: PULSE 64
[2020-10-22] MEDS: Mirtazapine 30 MG Tablet PO (20:29)
[2020-10-22] MEDS: Atorvastatin Calcium 40 MG Tablet PO (20:30)
--- NOTE | 2020-10-22 23:46 | NURSING ---
Pt am unassisted to nurse station several times,, disoriented, on phone to , requesting he come to pick her up, staff was able to re orient pt to time and place, pt moved to room closer to nurse station, this nurse updated , pt now lying in bed and states was awar ethat she was disoriented earlier , states i feel fine now
[2020-10-23 04:55] VITALS: BP 150/61; RESP 16; TEMP 36.8; O2SAT 100
[2020-10-23] MEDS: Polyethylene Glycol 3350 17 GM PACKET PO (04:58)
[2020-10-23] MEDS: Pramipexole Di-HCl 0.125 MG Tablet 0.375 MG PO ×3 (04:58→21:06)
[2020-10-23 04:59] VITALS: BP 150/61; PULSE 65
[2020-10-23] MEDS: Pantoprazole Sodium 40 MG Tablet PO (04:59)
[2020-10-23] MEDS: Metoprolol Tartrate 25 MG Tablet 12.5 MG PO ×2 (04:59→17:16)
[2020-10-23] MEDS: FLUoxetine 20 MG Capsule 40 MG PO ×2 (04:59→17:16)
[2020-10-23] MEDS: amLODIPine 5 MG Tablet PO (04:59)
[2020-10-23] MEDS: Carbidopa/Levodopa 25/250 Tablet PO ×4 (05:00→21:07)
[2020-10-23] MEDS: Senna/Docusate Sodium 1 Tablet PO (05:00)
--- NOTE | 2020-10-23 05:40 | NURSING ---
Up to toilet and then to chair in room , called to come and get her . disoriented to time and place, states i want to go home and you cant make me stay here pt agreeable to stay and talk to this am, on phone and notified,
--- NOTE | 2020-10-23 06:09 | NURSING ---
Addendum entered by Lissy Winters 10/23/20 09:45: Updated Janice will continue to monitor for symptoms. Original Note: Refused to have second covid test done
[2020-10-23] MEDS: Aspirin 81 MG TAB.CHEW PO (07:56)
--- NOTE | 2020-10-23 08:04 | RAD_ITS ---
STUDY: X-RAY - ABDOMEN/PELVIS REASON FOR EXAM: Female, 70 years old. CONSTIPATION TECHNIQUE: Single AP view of the abdomen / pelvis. COMPARISON: None. FINDINGS: Normal visualized lung bases. There is a moderate amount of colonic fecal material. The visualized liver, spleen and kidneys are grossly normal in size and morphology. Normal soft tissue structures. Normal visualized osseous structures. RAD/Abdomen Single View IMPRESSION: Moderate amount of fecal material is seen in the colon. Electronically Signed: Nabil Wadsworth MD at 14:09 EST , Service support ,
[2020-10-23 08:30] LABS: Absolute Lymphocyte Count 1.04 X10^3/uL (0.83-4.51); Absolute Neutrophil Count 5.9 X10^3/uL (2.0-7.7); Basophil# 0.03 X10^3/uL; Basophil% 0.4 % (0-1); Eosinophils% 1.3 % (0-5); Hemoglobin 13.6 g/dL (12.0-15.0); Lymphocyte # 1.04 X10^3/ul (4.0); Lymphocyte % 13.7 % (19-41); Mean Corp Hgb Conc 31.6 g/dL (32-36); Mean Corpuscular Hgb 30.2 pg (27.0-32.0); Mean Corpuscular Volume 95.6 fL (81-99); Mean Platelet Vol. 12.7 fl (6.2-12.0); Monocyte# 0.53 X10^3/uL; NRBC Flagged by Analyzer 0 % (0-5); Neutrophil # 5.87 X10^3/uL (2.7-7.7); Neutrophil % 77.2 % (47-70); Platelet Count 189 K/mm3 (150-450); RBC Distribution Width CV 13.5 % (11.6-14.6); RBC Distribution Width SD 47.8 fl (35.1-43.9); White Blood Count 7.6 K/mm3 (4.4-11.0)
--- NOTE | 2020-10-23 08:55 | RAD_ITS ---
STUDY: X-RAY CHEST REASON FOR EXAM: Female, 70 years old. HYPOTENSION, DIZZINESS, REPEAT FALLS TECHNIQUE: AP and lateral views of the chest. COMPARISON: Comparison is made with prior examination dated 09/15/2020. FINDINGS: Hyperinflation. There is no demonstrated pleural abnormality. Normal size heart. Normal mediastinum and ivy. Normal visualized pulmonary arteries. Normal visualized aortic arch and descending thoracic aorta. There are degenerative changes of the visualized thoracic spine. Normal visualized ribs, clavicles, and shoulders. There is no demonstrated abnormality of the visualized soft tissue structures of the upper abdomen. RAD/Chest PA and Lateral IMPRESSION: Hyperinflation. Electronically Signed: Nabil Wadsworth MD at 14:11 EST , Service support ,
--- NOTE | 2020-10-23 09:39 | NURSING ---
urine collected for Urinalysis straight cath. pt tolerated well.
[2020-10-23 09:44] LABS: Red Blood Cells-Urine 0 SEEN /hpf (0-5)
[2020-10-23 09:47] LABS: Color, Urine Yellow (Yellow); Glucose, Dipstick Normal (Normal); Ketone-Dipstick 5 mg/dl (Negative); Leukocyte Esterase-Dipstick 25 /ul (Negative); Nitrite-Dipstick Negative (Negative); Occult Blood-Urine Negative /ul (Negative); Protein-Dipstick Negative (Negative); Specific Gravity, Urine 1.015 (1.002-1.030); Urine Bilirubin Dipstick Negative (Negative); Urine Clarity Sl. Cloudy (Clear); Urine Urobilinogen Normal (Normal); Urine pH 6.5 (5.0 - 8.0)
[2020-10-23 09:48] VITALS: PULSE 56; RESP 18; O2SAT 94
[2020-10-23 10:07] LABS: Bacteria RARE /hpf (None Seen); Mucous, Urine RARE /hpf (<or=2+); Squamous Epithelial Cells - UA 0-5 SEEN /hpf (5-10); White Blood Cells 0-5 SEEN /hpf (0-5)
--- NOTE | 2020-10-23 14:29 | PCM.PN.RX ---
<RmLuann M - Last Filed: 10/23/20 14:29> Progress Note - Pharmacy Subjective: [facility] ADMISSION Objective: Allergies celecoxib [From Celebrex] Allergy (Verified 10/18/20 11:58) Itching fentanyl Allergy (Verified 10/18/20 11:58) Other HALLUCINATIONS Opioids - Morphine Analogues Allergy (Verified 10/18/20 11:58) hallucinate promethazine HCl [From Phenergan] Adverse Reaction (Verified 10/18/20 11:58) hallucinate Current Medications Generic Name Dose Route Start Last Admin Trade Name Freq PRN Reason Stop Dose Admin Acetaminophen 1,000 mg 10/19/20 21:31 10/22/20 20:26 Acetaminophen 500 Mg Tablet PO 1,000 mg Q6H PRN PRN Administration Pain Score 1-3 Amlodipine Besylate 5 mg 10/20/20 06:00 10/23/20 04:59 Amlodipine 5 Mg Tablet PO 5 mg DAILY YENIFER Administration Aspirin 81 mg 10/20/20 08:00 10/23/20 07:56 Aspirin 81 Mg Tab.Chew PO 81 mg DAILY@0800 YENIFER Administration Atorvastatin Calcium 40 mg 10/19/20 22:00 10/22/20 20:30 Atorvastatin Calcium 40 Mg Tablet PO 40 mg QHS YENIFER Administration Bisacodyl 10 mg 10/19/20 21:32 Bisacodyl 10 Mg Suppository RECTAL DAILY PRN Constipation Carbidopa/Levodopa 1 tablet 10/20/20 06:00 10/23/20 12:00 Carbidopa/Levodopa 25/250 Tablet PO 1 tablet 0600,1200 YENIFER Administration Carbidopa/Levodopa 0.5 tablet 10/20/20 16:00 10/22/20 20:28 Carbidopa/Levodopa 25/250 Tablet PO 0.5 tablet 1600,2000 YENIFER Administration Fluoxetine HCl 40 mg 10/20/20 18:00 10/23/20 04:59 Fluoxetine 20 Mg Capsule PO 40 mg BID YENIFER Administration Magnesium Hydroxide 30 ml 10/19/20 21:32 Magnesium Hydroxide 30 Ml Udc PO DAILY PRN Constipation Metoprolol Tartrate 12.5 mg 10/20/20 06:00 10/23/20 04:59 Metoprolol Tartrate 25 Mg Tablet PO 12.5 mg BID YENIFER Administration Mirtazapine 30 mg 10/19/20 22:00 10/22/20 20:29 Mirtazapine 30 Mg Tablet PO 30 mg QHS YENIFER Administration Nutritional Formula (Lactose Free) 120 ml 10/20/20 17:00 10/23/20 12:00 Ensure Enlive 120 Ml Liquid PO Not Given 4X/DAY YENIFER Oxycodone HCl 10 mg 10/20/20 14:28 Oxycodone 5 Mg Tablet PO Q4H PRN PRN Pain Score 6-10 Pantoprazole Sodium 40 mg 10/20/20 06:00 10/23/20 04:59 Pantoprazole Sodium 40 Mg Tablet PO 40 mg DAILY YENIFER Administration Polyethylene Glycol 17 gm 10/20/20 06:00 10/23/20 04:58 Polyethylene Glycol 3350 17 Gm Packet PO 17 gm DAILY YENIFER Administration Potassium Chloride 20 meq 10/21/20 08:00 10/23/20 07:57 Potassium Chloride 20 Meq Tablet PO Not Given DAILYCM YENIFER Pramipexole Dihydrochloride 0.375 mg 10/19/20 22:00 10/23/20 13:49 Pramipexole Di-Hcl 0.125 Mg Tablet PO 0.375 mg TID YENIFER Administration Senna/Docusate Sodium 1 tablet 10/20/20 06:00 10/23/20 05:00 Senna/Docusate Sodium 1 Tablet PO 1 tablet BID YENIFER Administration Tramadol HCl 50 mg 10/20/20 14:28 10/21/20 09:20 Tramadol 50 Mg Tablet PO 50 mg Q6H PRN PRN Administration Pain Score 4-5 Tuberculin PPD 5 tu 10/27/20 10:00 Tuberculin,Purif.Prot.Deriv. 50 Tu/Ml Vial ID 10/27/20 10:01 X1 ONE Problem List (Last Reviewed 03/30/20 @ 11:[address] Frandy Tarango MD) Debility (Acute) Orthostatic hypotension (Acute) Rupture of right quadriceps tendon (Chronic) Dislocation of right shoulder joint (Chronic) Coronary artery disease (Chronic) Hypertension (Chronic) Depression (Chronic) Insomnia (Chronic) Appetite loss (Chronic) Frequent falls (Chronic) Parkinsons disease (Chronic) HLD (hyperlipidemia) (Chronic) Vital Signs Temp Pulse Resp BP Pulse Ox 98.3 F 56 L 18 150/61 H 94 10/23/20 04:55 10/23/20 09:48 10/23/20 09:48 10/23/20 04:59 10/23/20 09:48 Oxygen Flow Rate (L/min) 91 Oxygen Delivery Method Room Air Weight: 64.864 kg Body Mass Index (BMI) 27.0 Orthostatic Vital Signs Start: 10/20/20 18:35 Freq: Q72H Status: Active Protocol: Activity Type Activity Date Activity User E-Sign Co-Sign Detail Recorded Client Recorded Date Recorded By Document 10/20/20 18:35 [email or web address] [id number] 10/20/20 18:55 [email or web address] 10/20/20 18:35 Orthostatic Vitals Standing -Blood Pressure (90/60-120/80) 100/53 L -Extremity Use Left Arm -Pulse Rate (60-100) 81 Sitting -Blood Pressure (90/60-120/80) 99/48 L -Extremity Use Left Arm -Pulse Rate (60-100) 80 Lying -Blood Pressure (90/60-120/80) 124/56 H -Extremity Use Left Arm -Pulse Rate (60-100) 63 Sodium 140 mmol/L (136-145) 10/22/20 05:30 Potassium 3.8 mmol/L (3.5-5.1) 10/22/20 05:30 Chloride 108 mmol/L (98-107) H 10/22/20 05:30 Carbon Dioxide 26.0 mmol/L (21.0-32.0) 10/22/20 05:30 Anion Gap 6 (5-15) 10/22/20 05:30 BUN 17 mg/dL (7-18) 10/22/20 05:30 Creatinine 0.95 mg/dL (0.55-1.02) 10/22/20 05:30 Est GFR (MDRD) Af Amer 75 mL/min (>60) 10/22/20 05:30 Est GFR (MDRD) Non-Af 62 mL/min (>60) 10/22/20 05:30 BUN/Creatinine Ratio 18.0 RATIO (10-20) 10/22/20 05:30 Glucose 89 mg/dL (74-106) 10/22/20 05:30 Assessment/Plan: 1. Pain: Tylenol 1000mg PO Q6h PRN pain 1-3, Tramadol 50mg PO Q6h PRN Pain 4-5, Oxycodone 10mg Q6h PRN pain 6-10. Please continue to monitor for increased/decreased pain, PRN medication use. 2. Hypertension/CAD: Aspirin 81mg PO Daily, Lipitor 40mg PO QHS, Lopressor 12.5mg PO BID, Norvasc 5mg PO Daily. Please continue to monitor BP, pulse, S/S bleeding/bruising, obtain lipid panel at least annually or sooner if clinically indicated. 3. Parkinson's Disease: Sinemet 25/250 1 tab @0600,1200 and Sinemet 25/250 1/2 tab @1600, 2000, Pramipexole 0.375mg PO TID. Please continue to monitor for improvement in Parkinson symptom, medication effectiveness. 4. GERD: Protonix 40mg PO Daily. Please continue to monitor for GERD exacerbations, please also encourage nonpharmacologic techniques to minimize GERD flare-ups as well, thank you. Psychotropic Medications: 5. Depression: Prozac 40mg PO BID. Please see H/P note regarding GDR recommendation. 6. Appetite loss/ Insomnia: Remeron 30mg PO QHS. Please see H/P note regarding GDR recommendation. Unnecessary Medications: 7. Potassium Chloride 20mEq PO Daily. No therapeutic indication for use, last K = 3.8 on 10/22/20. Please evaluate use, thank you. Bowel Regimen: Miralax 17g PO Daily, Senna/Docusate 1 tab PO BID, Dulcolax 10mg [place] Daily PRN, MOM 30mL PO Daily PRN. The patient has refused 3/4 scheduled doses of S/D and Miralax. If appropriate, please consider changing from scheduled to PRN dosing, thank you. Date of Note:: 10/23/20 - Provider Comments Provider responsibility: Provider responsible to enter orders to implement recommendations <Chris Louis Chi - Last Filed: 10/23/20 16:58> Progress Note - Pharmacy Subjective: [] Objective: Allergies celecoxib [From Celebrex] Allergy (Verified 10/18/20 11:58) Itching fentanyl Allergy (Verified 10/18/20 11:58) Other HALLUCINATIONS Opioids - Morphine Analogues Allergy (Verified 10/18/20 11:58) hallucinate promethazine HCl [From Phenergan] Adverse Reaction (Verified 10/18/20 11:58) hallucinate Current Medications Generic Name Dose Route Start Last Admin Trade Name Freq PRN Reason Stop Dose Admin Acetaminophen 1,000 mg 10/19/20 21:31 10/22/20 20:26 Acetaminophen 500 Mg Tablet PO 1,000 mg Q6H PRN PRN Administration Pain Score 1-3 Amlodipine Besylate 5 mg 10/20/20 06:00 10/23/20 04:59 Amlodipine 5 Mg Tablet PO 5 mg DAILY YENIFER Administration Aspirin 81 mg 10/20/20 08:00 10/23/20 07:56 Aspirin 81 Mg Tab.Chew PO 81 mg DAILY@0800 YENIFER Administration Atorvastatin Calcium 40 mg 10/19/20 22:00 10/22/20 20:30 Atorvastatin Calcium 40 Mg Tablet PO 40 mg QHS YENIFER Administration Bisacodyl 10 mg 10/19/20 21:32 Bisacodyl 10 Mg Suppository RECTAL DAILY PRN Constipation Carbidopa/Levodopa 1 tablet 10/20/20 06:00 10/23/20 12:00 Carbidopa/Levodopa 25/250 Tablet PO 1 tablet 0600,1200 YENIFER Administration Carbidopa/Levodopa 0.5 tablet 10/20/20 16:00 10/23/20 16:12 Carbidopa/Levodopa 25/250 Tablet PO 0.5 tablet 1600,2000 YENIFER Administration Fluoxetine HCl 40 mg 10/20/20 18:00 10/23/20 04:59 Fluoxetine 20 Mg Capsule PO 40 mg BID YENIFER Administration Magnesium Hydroxide 30 ml 10/19/20 21:32 Magnesium Hydroxide 30 Ml Udc PO DAILY PRN Constipation Metoprolol Tartrate 12.5 mg 10/20/20 06:00 10/23/20 04:59 Metoprolol Tartrate 25 Mg Tablet PO 12.5 mg BID YENIFER Administration Mirtazapine 30 mg 10/19/20 22:00 10/22/20 20:29 Mirtazapine 30 Mg Tablet PO 30 mg QHS YENIFER Administration Nutritional Formula (Lactose Free) 120 ml 10/20/20 17:00 10/23/20 16:14 Ensure Enlive 120 Ml Liquid PO 120 ml 4X/DAY YENIFER Administration Oxycodone HCl 10 mg 10/20/20 14:28 Oxycodone 5 Mg Tablet PO Q4H PRN PRN Pain Score 6-10 Pantoprazole Sodium 40 mg 10/20/20 06:00 10/23/20 04:59 Pantoprazole Sodium 40 Mg Tablet PO 40 mg DAILY YENIFER Administration Polyethylene Glycol 17 gm 10/20/20 06:00 10/23/20 04:58 Polyethylene Glycol 3350 17 Gm Packet PO 17 gm DAILY YENIFER Administration Potassium Chloride 20 meq 10/21/20 08:00 10/23/20 07:57 Potassium Chloride 20 Meq Tablet PO Not Given DAILYCM YENIFER Pramipexole Dihydrochloride 0.375 mg 10/19/20 22:00 10/23/20 13:49 Pramipexole Di-Hcl 0.125 Mg Tablet PO 0.375 mg TID YENIFER Administration Senna/Docusate Sodium 1 tablet 10/20/20 06:00 10/23/20 05:00 Senna/Docusate Sodium 1 Tablet PO 1 tablet BID YENIFER Administration Tramadol HCl 50 mg 10/20/20 14:28 10/21/20 09:20 Tramadol 50 Mg Tablet PO 50 mg Q6H PRN PRN Administration Pain Score 4-5 Tuberculin PPD 5 tu 10/27/20 10:00 Tuberculin,Purif.Prot.Deriv. 50 Tu/Ml Vial ID 10/27/20 10:01 X1 ONE Problem List (Last Reviewed 03/30/20 @ 11:[address] Frandy Tarango MD) Debility (Acute) Orthostatic hypotension (Acute) Rupture of right quadriceps tendon (Chronic) Dislocation of right shoulder joint (Chronic) Coronary artery disease (Chronic) Hypertension (Chronic) Depression (Chronic) Insomnia (Chronic) Appetite loss (Chronic) Frequent falls (Chronic) Parkinsons disease (Chronic) HLD (hyperlipidemia) (Chronic) Vital Signs Temp Pulse Resp BP Pulse Ox 97.4 F L 66 20 H 139/72 H 96 10/23/20 15:02 10/23/20 16:32 10/23/20 15:02 10/23/20 16:32 10/23/20 15:02 Oxygen Flow Rate (L/min) 91 Oxygen Delivery Method Room Air Weight: 64.864 kg Body Mass Index (BMI) 27.0 Orthostatic Vital Signs Start: 10/20/20 18:35 Freq: Q72H Status: Active Protocol: Activity Type Activity Date Activity User E-Sign Co-Sign Detail Recorded Client Recorded Date Recorded By Document 10/23/20 16:32 [email or web address] [id number] 10/23/20 16:35 [email or web address] 10/23/20 16:32 Orthostatic Vitals Standing -Blood Pressure (90/60-120/80) 108/52 L -Extremity Use Left Arm -Pulse Rate (60-100) 82 Sitting -Blood Pressure (90/60-120/80) 118/77 -Extremity Use Left Arm -Pulse Rate (60-100) 69 Lying -Blood Pressure (90/60-120/80) 139/72 H -Extremity Use Left Arm -Pulse Rate (60-100) 66 Sodium 140 mmol/L (136-145) 10/22/20 05:30 Potassium 3.8 mmol/L (3.5-5.1) 10/22/20 05:30 Chloride 108 mmol/L (98-107) H 10/22/20 05:30 Carbon Dioxide 26.0 mmol/L (21.0-32.0) 10/22/20 05:30 Anion Gap 6 (5-15) 10/22/20 05:30 BUN 17 mg/dL (7-18) 10/22/20 05:30 Creatinine 0.95 mg/dL (0.55-1.02) 10/22/20 05:30 Est GFR (MDRD) Af Amer 75 mL/min (>60) 10/22/20 05:30 Est GFR (MDRD) Non-Af 62 mL/min (>60) 10/22/20 05:30 BUN/Creatinine Ratio 18.0 RATIO (10-20) 10/22/20 05:30 Glucose 89 mg/dL (74-106) 10/22/20 05:30 Assessment/Plan: Psychotropic Medications: Unnecessary Medications: Bowel Regimen: - Provider Comments Provider responsibility: Provider responsible to enter orders to implement recommendations Provider Comments to Recommendations by Pharmacy: Agree
[2020-10-23 15:02] VITALS: BP 99/49; PULSE 61; RESP 20; TEMP 36.3; O2SAT 96
[2020-10-23 16:32] VITALS: BP 108/52; BP 118/77; BP 139/72; PULSE 66; PULSE 69; PULSE 82
[2020-10-23 17:16] VITALS: BP 118/77; PULSE 69
[2020-10-23] MEDS: traMADol 50 MG Tablet PO (19:54)
[2020-10-23] MEDS: Atorvastatin Calcium 40 MG Tablet PO (21:08)
[2020-10-23] MEDS: Mirtazapine 30 MG Tablet PO (21:08)
[2020-10-24 06:23] VITALS: BP 122/55; PULSE 71; RESP 16; TEMP 36.2; O2SAT 94
[2020-10-24] MEDS: Pramipexole Di-HCl 0.125 MG Tablet 0.375 MG PO ×3 (06:26→20:03)
[2020-10-24 06:27] VITALS: BP 122/55; PULSE 71
[2020-10-24] MEDS: Pantoprazole Sodium 40 MG Tablet PO (06:27)
[2020-10-24] MEDS: Carbidopa/Levodopa 25/250 Tablet PO ×4 (06:27→20:04)
[2020-10-24] MEDS: FLUoxetine 20 MG Capsule 40 MG PO ×2 (06:27→16:56)
[2020-10-24] MEDS: Polyethylene Glycol 3350 17 GM PACKET PO (06:27)
[2020-10-24] MEDS: Metoprolol Tartrate 25 MG Tablet 12.5 MG PO ×2 (06:27→16:56)
[2020-10-24] MEDS: Senna/Docusate Sodium 1 Tablet PO ×2 (06:27→16:56)
[2020-10-24] MEDS: amLODIPine 5 MG Tablet PO (06:28)
--- NOTE | 2020-10-24 07:29 | NURSING ---
Per Therapy pt c/o dizziness, pt sitting in chair,, skin warm and dry, alert and oriented, BP 71/45 pulse 56, encouraged to ask for assist for for all care
[2020-10-24] MEDS: Aspirin 81 MG TAB.CHEW PO (08:09)
--- NOTE | 2020-10-24 09:00 | NURSING ---
PT UNABLE TO SWALLOW POTASSIUM PILL D/T TOO BIG. DR WISE UPDATED AND CHANGED ORDER TO 2 SMALLER 10MEQ PILLS. PT AWARE. HE WAS ALSO UPDATED ON PT HAVING NO BM SINCE 10/19 PER DOCUMENTATION & LOW BPS. NEW ORDER FOR SSE & MIDODRINE. PT REFUSING ENEMA.
[2020-10-24 11:34] VITALS: BP 128/47; PULSE 62; RESP 16; TEMP 36.7; O2SAT 96
[2020-10-24] MEDS: Acetaminophen 500 MG Tablet 1000 MG PO (11:56)
--- NOTE | 2020-10-24 12:02 | NURSING ---
Addendum entered by Arlin Abbasi 10/24/20 16:00: DR. WISE AWARE. Original Note: R' STATES HAD LARGE BM FRIDAY NIGHT. DENIES FEELINGS OF CONSTIPATION. BS PRESENT X4, NORMOACTIVE. REFUSING SSE. WILL LET DR WISE KNOW.
[2020-10-24] MEDS: Midodrine HCl 5 MG Tablet 10 MG PO ×2 (12:58→20:03)
[2020-10-24 16:56] VITALS: PULSE 62
--- NOTE | 2020-10-24 19:41 | NURSING ---
Patient is c/o feeling anxiety. States that she can't shake it. Doesn't want anything permanently but would like something to help her anxiety tonight. Dr. Louis notified of this, new orders given.
[2020-10-24] MEDS: Mirtazapine 30 MG Tablet PO (20:04)
[2020-10-24] MEDS: Atorvastatin Calcium 40 MG Tablet PO (20:04)
[2020-10-24] MEDS: LORazepam 0.5 MG Tablet PO (20:24)
[2020-10-25 04:40] VITALS: BP 130/81; PULSE 75; RESP 16; TEMP 36.6; O2SAT 94
[2020-10-25 04:42] VITALS: BP 130/81; PULSE 75
[2020-10-25] MEDS: FLUoxetine 20 MG Capsule 40 MG PO ×2 (04:42→16:26)
[2020-10-25] MEDS: Pramipexole Di-HCl 0.125 MG Tablet 0.375 MG PO ×3 (04:42→20:17)
[2020-10-25] MEDS: Midodrine HCl 5 MG Tablet 10 MG PO ×3 (04:42→20:17)
[2020-10-25] MEDS: Pantoprazole Sodium 40 MG Tablet PO (04:42)
[2020-10-25] MEDS: Metoprolol Tartrate 25 MG Tablet 12.5 MG PO ×2 (04:42→16:24)
[2020-10-25] MEDS: Senna/Docusate Sodium 1 Tablet PO (04:43)
[2020-10-25] MEDS: amLODIPine 5 MG Tablet PO (04:43)
--- NOTE | 2020-10-25 05:59 | NURSING ---
Patient has been up and down all night. Confused, thinks she is going to school. Patient very unstable on feet. very forgetful on using ben-walker. Patient taking off sling multiple times, using arm which she is supposed to be NWB on. Patient reoriented multiple times.
[2020-10-25] MEDS: Carbidopa/Levodopa 25/250 Tablet PO ×4 (07:56→20:17)
[2020-10-25] MEDS: Aspirin 81 MG TAB.CHEW PO (07:56)
--- NOTE | 2020-10-25 08:26 | NURSING ---
Pt seeing her granddaughter in room and was talking to her this am. Reoriented pt to place and that no one is in the room with us. Dr. Louis made aware.
--- NOTE | 2020-10-25 10:45 | CASEMGMT ---
Social Work IDT met with patient and via conference call for care plan meeting. Discussed patient's progress in therapy. Nursing reports continued hallucinations and delusions. Dr. Louis spoke with pt and about progression of Parkinson's disease and possible onset of Dementia - recommended home with hospice. Inquired about feelings on that conversation. agreeable. Pt became tearful, fidgety and would not keep eye contact with SW. Provided emotional support and inquired about her feelings. Pt expressed she feels staff is manipulating her into seeing those things, that hey are really there, and she feels insecure being here. SW assured pt IDT does not want pt to feel that way. Explained sometimes when pt change environments, change in their routine, and not seeing their loved ones, it has this affect on them. IDT agrees it is not beneficial for pt to remain here and to get home to feel safe with her . Pt agreeable. SW offered to DC her this date so she does not have to spend another night. Pt and agreeable. separately discussed with SW he does need help with navigating this disease and with pt. Explained hospice will provide that support and resources, and once pt is evaluated, they can provide continued recommendations on pt's needs. very appreciative of care thus far and SW assistance. Referral made to [facility]. Will continue to follow. ANAHY Cagle
[2020-10-25] MEDS: Acetaminophen 500 MG Tablet 1000 MG PO (11:43)
[2020-10-25 12:19] VITALS: PULSE 61; RESP 18; O2SAT 96
[2020-10-25 13:48] VITALS: BP 117/59; PULSE 53; RESP 16; TEMP 36.3; O2SAT 94
--- NOTE | 2020-10-25 15:26 | CASEMGMT ---
Social Work Followed up with hospice. They have a meeting scheduled with the at 10 am 10/26, and stated it is the 's choice if he would like to bring her home tonight without hospice or tomorrow. Spoke with the and explained his options. would like to wait until tomorrow morning to DC pt. IDT agreeable. Plan: DC home with and [facility] 10/26 ANAHY Cagle
[2020-10-25 16:24] VITALS: PULSE 59
[2020-10-25] MEDS: oxyCODONE 5 MG Tablet 10 MG PO (16:26)
--- NOTE | 2020-10-25 19:59 | PCM.DC ---
- Discharge Diagnoses Current Active Problems: Current Active and Chronic Problems (Last Reviewed 03/30/20 @ 11:[address] Frandy Tarango MD) Debility (Acute) Orthostatic hypotension (Acute) Rupture of right quadriceps tendon (Chronic) Dislocation of right shoulder joint (Chronic) Coronary artery disease (Chronic) Hypertension (Chronic) Depression (Chronic) Insomnia (Chronic) Appetite loss (Chronic) Frequent falls (Chronic) Parkinsons disease (Chronic) HLD (hyperlipidemia) (Chronic) You will use the following diet at home:: No restrictions, Regular Your food should be the consistency of: Regular Your liquids should be the consistency of: Regular/Thin Discharge Activity: Return to Normal Activity, May Shower, Use Walker Weight Bearing Status: Weight bearing as tolerated Call your doctor if you observe: Fever of 101 or Higher, Inability to urinate, Inability to have a bowel movement, Shortness of breath, Chest pain, Uncontrolled pain Allergies/Adverse Reactions: Allergies celecoxib [From Celebrex] Allergy (Verified 10/18/20 11:58) Itching fentanyl Allergy (Verified 10/18/20 11:58) Other HALLUCINATIONS Opioids - Morphine Analogues Allergy (Verified 10/18/20 11:58) hallucinate promethazine HCl [From Phenergan] Adverse Reaction (Verified 10/18/20 11:58) hallucinate Medications to take at Discharge Aspirin [Aspirin, Baby] 81 mg PO DAILY@0800 07/20/14 Fluoxetine [Prozac] 20 mg PO TID 07/20/14 mirtazapine 30 mg tablet 30 mg PO QHS tab 03/30/20 Atorvastatin Calcium [Lipitor] 40 mg PO QHS 10/19/20 Carbidopa/Levodopa 25/250 [Sinemet 25/250] 0.5 tab PO BID 10/19/20 Carbidopa/Levodopa 25/250 [Sinemet 25/250] 1 tab PO BID 10/19/20 Metoprolol Tartrate [Lopressor (beta jelly)] 12.5 mg PO BID 10/19/20 Pantoprazole Sodium [Protonix] 40 mg PO DAILY 10/19/20 Ropinirole HCl [Ropinirole ER] 4 mg PO 10/19/20 Acetaminophen [Tylenol] 1,000 mg PO Q6H PRN PRN tablet 10/25/20 Amlodipine [Norvasc] 5 mg PO DAILY #30 tab 10/25/20 Carbidopa/Levodopa 25/250 [Sinemet 25/250] 0.5 tablet PO 1600,2000 tablet 10/25/20 Carbidopa/Levodopa 25/250 [Sinemet 25/250] 1 tablet PO 0800,1200 tablet 10/25/20 Melatonin 10 mg PO QHS tablet 10/25/20 Midodrine HCl [Proamatine] 10 mg PO TID #90 tab 10/25/20 Oxycodone [Oxyir] 5 mg PO Q6H PRN PRN #12 tablet 10/25/20 Potassium Chloride [K-Dur] 10 meq PO BIDCM #60 tab 10/25/20 The following prescriptions were given: Potassium Chloride [K-Dur] 10 meq PO BIDCM #60 tab Transmission Status: Pending to [facility] Amlodipine [Norvasc] 5 mg PO DAILY #30 tab Transmission Status: Pending to [facility] Oxycodone [Oxyir] 5 mg PO Q6H PRN PRN #12 tablet PRN Reason: Pain Score 6-10 Transmission Status: Sent to [facility] Midodrine HCl [Proamatine] 10 mg PO TID #90 tab Transmission Status: Pending to [facility] Primary Care Physician: Ghazala Leigh MD [Primary Care Provider] - Please follow up with your Primary Care Physician in: 1 week. Test Results: Test results from this visit will be discussed in further detail at your follow-up appointment, if applicable. Proposed Discharge Date: 10/26/20
--- NOTE | 2020-10-25 20:00 | DS.PCM_ITS ---
Discharge Date and Diagnosis - Problem List Patient Problems: Active and Suspected Problems (Last Reviewed 03/30/20 @ 11:[address] Frandy Tarango MD) Debility (Acute) Orthostatic hypotension (Acute) Date of Admission: 10/19/20 Date of Discharge: 10/26/20 - Primary Discharge Diagnosis Acute Problems: Active Problems (Last Reviewed 03/30/20 @ 11:[address] Frandy Tarango MD) Debility (Acute) Orthostatic hypotension (Acute) - Secondary Discharge Diagnosis Chronic Problems: Chronic Problems (Last Reviewed 03/30/20 @ 11:[address] Frandy Tarango MD) Rupture of right quadriceps tendon (Chronic) Dislocation of right shoulder joint (Chronic) Coronary artery disease (Chronic) Hypertension (Chronic) Depression (Chronic) Insomnia (Chronic) Appetite loss (Chronic) Frequent falls (Chronic) Hyperlipidemia (Chronic) Parkinsons disease (Chronic) Atherosclerotic heart disease of [place] coronary artery with other forms of angina pectoris (Chronic) History of coronary artery stent placement (Chronic 10/08/13) PCI-AGUSTO to RCA 02/19/2008; PCI-[facility]-Mid LAD 10/08/2013 Essential (primary) hypertension (Chronic) HLD (hyperlipidemia) (Chronic) Hospital Course and Treatment Imaging Results: 10/20/20 05:35 Diet: Regular - General Food consistency:: Regular Liquid Consistency:: Regular/Thin Is pt able to select menu?: Yes Diet Comments: magic cup or ensure pudding w/ lunch and dinner Clinical Impression(s) from Imaging Studies KUB X-Ray 10/23/20 08:04 IMPRESSION: Moderate amount of fecal material is seen in the colon. Electronically Signed: Nabil Wadsworth MD at 14:09 EST , Service support , Chest X-Ray 10/23/20 08:55 IMPRESSION: Hyperinflation. Electronically Signed: Nabil Wadsworth MD at 14:11 EST , Service support , Labs (Last 48 Hours) 10/23/20 21:51 COVID-19 (LINDA) Not Detected Microbiology 10/23/20 09:20 Urine Catheter - Catheter Urine Culture - Final Culture exhibits no growth. Operations: None Procedures: None Summary of Care Provided: The patient is a 70 year old Female with below past medical history significant for Parkinson Disease, multiple recent falls, orthostatic hypotension, admitted to TCU with debility, here for rehabilitation, strengthening, prior to discharge home with . On TCU, resident became increasing restless, agitated, angry. With progressive Parkinson Disease dementia, orthostatic hypotension, autonomic instability, multiple falls, resident's lifespan is less than 6 months. Discharge home with , [facility]. Patient Problems: Active and Suspected Problems (Last Reviewed 03/30/20 @ 11:[address] Frandy Tarango MD) Debility (Acute) Orthostatic hypotension (Acute) - Physical Exam Vitals/I&O's: Vital Signs Temp Pulse Resp BP Pulse Ox 97.3 F L 59 L 16 117/59 L 94 10/25/20 13:48 10/25/20 16:24 10/25/20 13:48 10/25/20 13:48 10/25/20 13:48 Oxygen Flow Rate (L/min) 91 Oxygen Delivery Method Room Air Weight: 65.771 kg Body Mass Index (BMI) 27.0 Orthostatic Vital Signs Start: 10/20/20 18:35 Freq: Q72H Status: Active Protocol: Activity Type Activity Date Activity User E-Sign Co-Sign Detail Recorded Client Recorded Date Recorded By Document 10/23/20 16:32 [email or web address] [id number] 10/23/20 16:35 [email or web address] 10/23/20 16:32 Orthostatic Vitals Standing -Blood Pressure (90/60-120/80) 108/52 L -Extremity Use Left Arm -Pulse Rate (60-100) 82 Sitting -Blood Pressure (90/60-120/80) 118/77 -Extremity Use Left Arm -Pulse Rate (60-100) 69 Lying -Blood Pressure (90/60-120/80) 139/72 H -Extremity Use Left Arm -Pulse Rate (60-100) 66 Intake and Output for Last 24 Hours 10/23/20 10/24/20 10/25/20 23:59 23:59 23:59 Intake Total 360 / 360 360 / 360 600 / 600 Balance 360 / 360 360 / 360 600 / 600 Microbiology Past 72 Hours 10/23/20 09:20 Urine Catheter - Catheter Urine Culture - Final Culture exhibits no growth. Current Medications Acetaminophen (Acetaminophen 500 Mg Tablet) 1,000 mg PO Q6H PRN PRN PRN Reason: Pain Score 1-3 Last Admin: 10/25/20 11:43 Dose: 1,000 mg Documented by: Amlodipine Besylate (Amlodipine 5 Mg Tablet) 5 mg PO DAILY [facility] Last Admin: 10/25/20 04:43 Dose: 5 mg Documented by: Aspirin (Aspirin 81 Mg Tab.Chew) 81 mg PO DAILY@0800 [facility] Last Admin: 10/25/20 07:56 Dose: 81 mg Documented by: Atorvastatin Calcium (Atorvastatin Calcium 40 Mg Tablet) 40 mg PO QHS [facility] Last Admin: 10/24/20 20:04 Dose: 40 mg Documented by: Bisacodyl (Bisacodyl 10 Mg Suppository) 10 mg RECTAL DAILY PRN PRN Reason: Constipation Carbidopa/Levodopa (Carbidopa/Levodopa 25/250 Tablet) 0.5 tablet PO 1600,2000 [facility] Last Admin: 10/25/20 16:28 Dose: 0.5 tablet Documented by: Carbidopa/Levodopa (Carbidopa/Levodopa 25/250 Tablet) 1 tablet PO 0800,1200 [facility] Last Admin: 10/25/20 11:40 Dose: 1 tablet Documented by: Fluoxetine HCl (Fluoxetine 20 Mg Capsule) 40 mg PO BID [facility] Last Admin: 10/25/20 16:26 Dose: 40 mg Documented by: Magnesium Hydroxide (Magnesium Hydroxide 30 Ml Udc) 30 ml PO DAILY PRN PRN Reason: Constipation Melatonin (Melatonin 10 Mg Tablet) 10 mg PO QHS [facility] Metoprolol Tartrate (Metoprolol Tartrate 25 Mg Tablet) 12.5 mg PO BID [facility] Last Admin: 10/25/20 16:24 Dose: 12.5 mg Documented by: Midodrine (Midodrine Hcl 5 Mg Tablet) 10 mg PO TID [facility] Last Admin: 10/25/20 15:14 Dose: 10 mg Documented by: Mirtazapine (Mirtazapine 30 Mg Tablet) 30 mg PO QHS [facility] Last Admin: 10/24/20 20:04 Dose: 30 mg Documented by: Oxycodone HCl (Oxycodone 5 Mg Tablet) 10 mg PO Q4H PRN PRN PRN Reason: Pain Score 6-10 Last Admin: 10/25/20 16:26 Dose: 10 mg Documented by: Pantoprazole Sodium (Pantoprazole Sodium 40 Mg Tablet) 40 mg PO DAILY [facility] Last Admin: 10/25/20 04:42 Dose: 40 mg Documented by: Polyethylene Glycol (Polyethylene Glycol 3350 17 Gm Packet) 17 gm PO DAILY [facility] Last Admin: 10/25/20 04:43 Dose: Not Given Documented by: Potassium Chloride (Potassium Ch[facility]ide 10 Meq Tablet) [facility] Last Admin: 10/25/20 16:26 Dose: 10 meq Documented by: Pramipexole Dihydrochloride (Pramipexole Di-Hcl 0.125 Mg Tablet) 0.375 mg PO TID [facility] Last Admin: 10/25/20 15:13 Dose: 0.375 mg Documented by: Senna/Docusate Sodium (Senna/Docusate Sodium 1 Tablet) 1 tablet PO BID [facility] Last Admin: 10/25/20 16:30 Dose: Not Given Documented by: Tramadol HCl (Tramadol 50 Mg Tablet) 50 mg PO Q6H PRN PRN PRN Reason: Pain Score 4-5 Last Admin: 10/23/20 19:54 Dose: 50 mg Documented by: Tuberculin PPD (Tuberculin,Purif.Prot.Deriv. 50 Tu/Ml Vial) 5 tu ID [id number] ONE Stop: 10/27/20 10:01 Discharge Diet: No Restrictions Discharge Activity: Return to Normal Activity, May Shower, Use Walker Weight Bearing Status: Weight bearing as tolerated Call your doctor if you observe: Fever of 101 or Higher, Inability to urinate, Inability to have a bowel movement, Shortness of breath, Chest pain, Uncontrolled pain Home Medications: Medications to take at Discharge Aspirin [Aspirin, Baby] 81 mg PO DAILY@0800 07/20/14 Fluoxetine [Prozac] 20 mg PO TID 07/20/14 mirtazapine 30 mg tablet 30 mg PO QHS tab 03/30/20 Atorvastatin Calcium [Lipitor] 40 mg PO QHS 10/19/20 Carbidopa/Levodopa 25/250 [Sinemet 25/250] 0.5 tab PO BID 10/19/20 Carbidopa/Levodopa 25/250 [Sinemet 25/250] 1 tab PO BID 10/19/20 Metoprolol Tartrate [Lopressor (beta jelly)] 12.5 mg PO BID 10/19/20 Pantoprazole Sodium [Protonix] 40 mg PO DAILY 10/19/20 Ropinirole HCl [Ropinirole ER] 4 mg PO 10/19/20 Acetaminophen [Tylenol] 1,000 mg PO Q6H PRN PRN tablet 10/25/20 Amlodipine [Norvasc] 5 mg PO DAILY #30 tab 10/25/20 Carbidopa/Levodopa 25/250 [Sinemet 25/250] 0.5 tablet PO 1600,2000 tablet 10/25/20 Carbidopa/Levodopa 25/250 [Sinemet 25/250] 1 tablet PO 0800,1200 tablet 10/25/20 Melatonin 10 mg PO QHS tablet 10/25/20 Midodrine HCl [Proamatine] 10 mg PO TID #90 tab 10/25/20 Oxycodone [Oxyir] 5 mg PO Q6H PRN PRN #12 tablet 10/25/20 Potassium Chloride [K-Dur] 10 meq PO BIDCM #60 tab 10/25/20 Following Prescriptions Were Given to Patient: Potassium Chloride [K-Dur] 10 meq PO BIDCM #60 tab Transmission Status: Pending to [facility] Amlodipine [Norvasc] 5 mg PO DAILY #30 tab Transmission Status: Pending to [facility] Oxycodone [Oxyir] 5 mg PO Q6H PRN PRN #12 tablet PRN Reason: Pain Score 6-10 Transmission Status: Sent to [facility] Midodrine HCl [Proamatine] 10 mg PO TID #90 tab Transmission Status: Pending to [facility] Primary Care Physician: Ghazala Leigh MD [Primary Care Provider] - Please follow up with your Primary Care Physician in: 1 week. Disposition: Home with Hospice Minutes spent on discharge:: 35 Patient Condition:: Poor Medical Necessity - Tobacco Use Smoking Status: Former smoker Tobacco Use: Non-smoker Meaningful Use Info Meaningful Use Diagnoses (Choose all that apply): None applicable
[2020-10-25] MEDS: Mirtazapine 30 MG Tablet PO (20:18)
[2020-10-25] MEDS: MELATONIN 10 MG TABLET PO (20:18)
[2020-10-25] MEDS: Atorvastatin Calcium 40 MG Tablet PO (20:20)
[2020-10-26 06:50] VITALS: BP 140/66; PULSE 58; RESP 16; TEMP 36.3; O2SAT 95
[2020-10-26] MEDS: Midodrine HCl 5 MG Tablet 10 MG PO (06:52)
[2020-10-26] MEDS: Pramipexole Di-HCl 0.125 MG Tablet 0.375 MG PO (06:52)
[2020-10-26 06:53] VITALS: BP 140/66; PULSE 58
[2020-10-26] MEDS: Metoprolol Tartrate 25 MG Tablet 12.5 MG PO (06:53)
[2020-10-26] MEDS: Pantoprazole Sodium 40 MG Tablet PO (06:53)
[2020-10-26] MEDS: amLODIPine 5 MG Tablet PO (06:53)
[2020-10-26] MEDS: FLUoxetine 20 MG Capsule 40 MG PO (06:53)
[2020-10-26] MEDS: Carbidopa/Levodopa 25/250 Tablet PO (06:53)
[2020-10-26] MEDS: Aspirin 81 MG TAB.CHEW PO (06:55)
[2020-10-26 10:27] VITALS: BP 140/66; PULSE 58; RESP 16; TEMP 36.3; O2SAT 95
--- NOTE | 2020-10-31 10:03 | MDS.RN ---
Information for the mds was obtained from review of the clinical record, interview of resident, staff, and direct observation of residents care.
== END 2020-10-26 08:30 | disposition hospice, home (50) | DRG 312 ==
PROVIDERS: Admitting Provider Family Medicine Geriatric Medicine; PCP Family Medicine; Visit Provider Family Medicine Geriatric Medicine
DX: I95.1 Orthostatic hypotension (principal); K21.9 Gastro-esophageal reflux disease without esophagitis; S42.391D Other fracture of shaft of right humerus, subsequent encounter for fracture with routine healing; F32.9 Major depressive disorder, single episode, unspecified; E78.5 Hyperlipidemia, unspecified; G20 Parkinson's disease; I25.10 Atherosclerotic heart disease of native coronary artery without angina pectoris; I10 Essential (primary) hypertension; R29.6 Repeated falls; F41.9 Anxiety disorder, unspecified; G47.33 Obstructive sleep apnea (adult) (pediatric); K58.9 Irritable bowel syndrome, unspecified; Z87.891 Personal history of nicotine dependence; X58.XXXD Exposure to other specified factors, subsequent encounter
CPT/HCPCS: 36415; 71046; 74018; 80048; 81001; 85025; 87086; 87426; 87635; 92523; 92610; 97110; 97116; 97162; 97166; 97530; 97535; 97802; U0002

== ENCOUNTER 2020-12-04 10:52 | Outpatient (RCR) | payer MEDICARE, OTHER, SELFPAY | END 2020-12-04 23:59 | LOC: IMMUN 10:52 | PROVIDERS: Visit Provider Family Medicine | DX: Z23 Encounter for immunization (principal) | CPT/HCPCS: 0011A; 0012A ==

== ENCOUNTER 2020-12-14 00:33 | Emergency (ER) | payer MEDICARE, SELFPAY ==
[2020-12-14] VITALS (10 sets, daily range): BP systolic 100–141; BP diastolic 43–86; PULSE 69–81; RESP 16–18; TEMP 36.4–36.6; O2SAT 88–98; BMI 22.8
--- NOTE | 2020-12-14 00:40 | EKG12_ITS ---
Test Reason : Blood Pressure : / mmHG Vent. Rate : 065 BPM Atrial Rate : 065 BPM P-R Int : 132 ms QRS Dur : 090 ms QT Int : 410 ms P-R-T Axes : 038 002 047 degrees QTc Int : 426 ms Normal sinus rhythm ST & T wave abnormality, consider anterior ischemia Abnormal ECG Confirmed by IGNACIO LOPEZ, MARIA G ([id number]), commercial production editor MARS HOPPER ([id number]) on 12/18/2020 11:38:48 A M Referred By: WAYNE Confirmed By:ANGEL PIERRE MD
--- NOTE | 2020-12-14 00:40 | RAD_ITS ---
STUDY: X-RAY CHEST REASON FOR EXAM: Female, 70 years old. cough TECHNIQUE: Single AP portable view of the chest. COMPARISON: 10/23/2020. FINDINGS: The lungs are clear and expanded. There is no demonstrated pleural abnormality. Normal size heart. Normal mediastinum and ivy. Normal visualized pulmonary arteries. There is atherosclerotic calcification of the aortic arch with tortuosity. There is demineralization of the osseous structures. Normal visualized ribs, clavicles, and shoulders. There is no demonstrated abnormality of the visualized soft tissue structures of the upper abdomen. RAD/Chest 1 View (Portable) IMPRESSION: No acute cardiopulmonary disease. Electronically Signed: Keyanna Milner MD at 1:27 EST , Service support ,
--- NOTE | 2020-12-14 00:41 | CT_ITS ---
STUDY: CT BRAIN WITHOUT CONTRAST REASON FOR EXAM: Female, 70 years old. altered mental status RADIATION DOSAGE (If Supplied By Facility): CTDIvol = ( 44.99 ) mGy, DLP = ( 812.98 ) mGycm TECHNIQUE: Transaxial CT imaging of the brain was performed without administration of intravenous contrast material. Individualized dose optimization techniques were used for this CT. COMPARISON: 09/15/2020. FINDINGS: Normal soft tissue structures. Normal calvarium. Normal size ventricles and extra-axial spaces for the patient''s age. Normal white matter tracts of the cerebral hemispheres. Normal basal ganglia and thalami. Normal brainstem. Normal cerebellum. There is no intracranial hemorrhage. There are no findings of an acute ischemic infarction. There is mucosal thickening involving the right maxillary sinus, remainder of the paranasal sinuses and mastoids are clear. CT/Brain/Head without Contrast IMPRESSION: Moderate involutional changes otherwise normal unenhanced CT scan of the brain. Electronically Signed: Keyanna Milner MD at 1:32 EST , Service support ,
--- NOTE | 2020-12-14 00:42 | ED.DCSUM_ITS ---
- ER Visit Summary Date of Service: 12/14/20 Chief Complaint: Combative behavior History of Present Illness: The patient is a 70 F who presents with some combative behavior. Patient is apparently staying at the hospice inpatient center for respite care. She is a DNR [facility] arrest but was staying there for some respite for her . She has a history of Parkinson's disease. I spoke with the physician taking care of her. He states that she is starting to develop some dementia with behavior disturbances. Today she was hitting staff and was exhibiting some delusions and psychosis. She was hallucinating that her parents were in a car accident but they have been for quite some time. He gave her some Seroquel today to help her calm down but it has not been helping. The was concerned about taking her back home because of these behaviors so she was sent here for further evaluation. The patient has been taking her medications for her Parkinson's syndrome. Physical Examination: Vital signs reviewed. HEENT exam unremarkable. Heart is regular rate and rhythm without murmurs. Lungs are clear to auscultation. Abdomen is soft and nontender. Extremities reveal no edema. Skin exam normal. Neurologic exam shows that she is alert to self and place but not oriented to time. She moves all 4 extremities equally. I do not see any tremors at this time. She does not appear to be internally stimulated. Test Results: EKG is normal sinus rhythm with rate of 65. Nonspecific ST-T wave changes noted. Chest x-ray shows no acute findings. CAT scan of the head reveals chronic changes. Her platelet count is 143. Chloride is 108 and glucose is 109. Creatinine is 1.14 which is baseline. Urinalysis reveals no evidence of infection. Emergency Department Course and Treatment: Patient has been calm and cooperative throughout her emergency department course. However, due to her behavior I feel the patient likely needs a pola psych evaluation. Patient was discussed with crisis and she will likely need to be transferred to a [facility] psych unit Treatment Plan: [] Disposition: Pending Impression: Dementia with behavior disturbances, Parkinson's This note was generated with [employer] software. It may contain incorrect words, spelling, and punctuation that were not noted in review of the chart prior to signing ED Disposition - Plan for ED Patient: [facility] [[facility] Provider] -
[2020-12-14 01:02] LABS: Absolute Lymphocyte Count 1.26 X10^3/uL (0.83-4.51); Absolute Neutrophil Count 7.1 X10^3/uL (2.0-7.7); Basophil# 0.03 X10^3/uL; Basophil% 0.3 % (0-1); Eosinophil# 0.16 X10^3/uL; Eosinophils% 1.8 % (0-5); Hematocrit 45.3 % (37-47); Lymphocyte # 1.26 X10^3/ul (4.0); Lymphocyte % 13.8 % (19-41); Mean Corp Hgb Conc 30.9 g/dL (32-36); Mean Corpuscular Hgb 29.2 pg (27.0-32.0); Mean Corpuscular Volume 94.6 fL (81-99); Mean Platelet Vol. 12.3 fl (6.2-12.0); Monocyte% 6.6 % (0-10); NRBC Flagged by Analyzer 0 % (0-5); Neutrophil # 7.05 X10^3/uL (2.7-7.7); Neutrophil % 77.3 % (47-70); Platelet Count 143 K/mm3 (150-450); RBC Distribution Width CV 13.4 % (11.6-14.6); RBC Distribution Width SD 46.6 fl (35.1-43.9); Red Blood Count 4.79 M/mm3 (4.2-5.4); White Blood Count 9.1 K/mm3 (4.4-11.0)
[2020-12-14 01:23] LABS: Mucous, Urine 0 SEEN /hpf (<or=2+)
[2020-12-14 01:24] LABS: Color, Urine Yellow (Yellow); Glucose, Dipstick Normal (Normal); Ketone-Dipstick 5 mg/dl (Negative); Leukocyte Esterase-Dipstick 25 /ul (Negative); Nitrite-Dipstick Negative (Negative); Occult Blood-Urine 10 /ul (Negative); Protein-Dipstick Negative (Negative); Specific Gravity, Urine 1.025 (1.002-1.030); Urine Bilirubin Dipstick Negative (Negative); Urine Clarity Clear (Clear); Urine Urobilinogen Normal (Normal)
[2020-12-14 01:24] LABS: ALB/GLOB Ratio 1.1 RATIO (0.9-2.4); AST(SGOT) 22 U/L (15-37); Alanine Aminotransfer ALT/SGPT 15 U/L (13-56); Albumin, Serum 3.8 g/dL (3.2-5.0); Alkaline Phosphatase 166 U/L (45-117); Anion Gap 7 (5-15); BUN 15 mg/dL (7-18); BUN/Creat Ratio 13.2 RATIO (10-20); Calcium,Total 9.3 mg/dL (8.5-10.1); Chloride 108 mmol/L (98-107); Creatinine, Serum 1.14 mg/dL (0.55-1.02); EST Glomerular Filtration Rate 50 mL/min (>60); Est Glom Filt Rate - Afr Amer 60 mL/min (>60); Estimated Creatinine Clearance 41.76 ml/min; Globulin 3.4 g/dL (2.2-4.2); Glucose 109 mg/dL (74-106); Potassium 4.4 mmol/L (3.5-5.1); Protein, Total 7.2 g/dL (6.4-8.2); Sodium Level 142 mmol/L (136-145); Thyroid Stim Hormone (TSH) 1.21 uIU/mL (0.358-3.74)
[2020-12-14 01:29] LABS: Bacteria RARE /hpf (None Seen); Red Blood Cells-Urine 0-5 SEEN /hpf (0-5); Squamous Epithelial Cells - UA 0-5 SEEN /hpf (5-10); Transitional Epithelial - Ur 0-5 SEEN /hpf (0-5); White Blood Cells 0-5 SEEN /hpf (0-5)
--- NOTE | 2020-12-14 08:10 | ED.RN ---
Crisis called to talk with pt. Pt said helbonifacio but then stopped talking. Pt acts as though she is sleeping, pt will blink eyes but will not keep them open to finish conversation with crisis. Crisis states they will try to talk with her to get more information. I told crisis that if i could get pt to wake up and talk i would give her a call.
--- NOTE | 2020-12-14 08:29 | ED.RN ---
multiple attempts made to wake pt up to take meds, pt will blink eyes but will not keep them open to take medications. will continue to try.
[2020-12-14] MEDS: Metoprolol Tartrate 25 MG Tablet 12.5 MG PO (10:08)
[2020-12-14] MEDS: Midodrine HCl 5 MG Tablet 10 MG PO ×2 (10:09→13:39)
[2020-12-14] MEDS: Carbidopa/Levodopa 25/250 Tablet PO ×3 (10:10→16:34)
[2020-12-14] MEDS: amLODIPine 5 MG Tablet PO (10:11)
[2020-12-14] MEDS: Aspirin 81 MG TAB.CHEW PO (10:11)
[2020-12-14] MEDS: Pantoprazole Sodium 40 MG Tablet PO (10:12)
[2020-12-14] MEDS: FLUoxetine 20 MG Capsule PO ×2 (10:13→13:39)
--- NOTE | 2020-12-14 14:07 | CM.ED ---
Social Work Telephone call from Nayeli Flores ([phone]). Nayeli inquired about HCPOA documents. This certified social workers in health care reviewed patient chart and noted that is appears that patient does have a HCPOA but no documents are on file. This certified social workers in health care to call patient spouse to see if a copy of HCPOA documents can be obtained. Telephone call to patient spouse Ben. Voicemail left requesting return phone call. Yen HIGGINBOTHAM, TONIOS
[2020-12-14] MEDS: clonazePAM 1 MG Tablet PO (15:03)
--- NOTE | 2020-12-14 15:41 | CASEMGMT ---
Social Work Note GÉNESIS reviewed echart, no HCPOA documents were found on chart. GÉNESIS reviewed notes, pt was recently at [facility] TCU and discharged home with [facility] services on 10/26/2020. GÉNESIS placed a call to [facility] and spoke with Rogerio. Rogerio states pt was currently still active with [facility] until pt revoked Hospice services to admit to [facility] ED 12/14/2020. GÉNESIS asked Rogerio if they have HCPOA on file for pt and Rogerio states no. SW updated Yen Fleming ED MARCELL Brooks SEED LABORATORY ASSISTANT, DOGMAN/WOMAN
--- NOTE | 2020-12-14 16:30 | CM.ED ---
Social Work Collaborating with Dr. Leonard. Patient has been pink slipped. [facility] updated that patient has been pink slipped. Patient accepted to [facility] by Dr. Alexa Alonzo. [facility] to set up transportation. Telephone call to Silver, Sara. Liu updated on above. Medical team updated on above. Yen Fleming MACHINE ADJUSTER LEADER, MARCELL
[2020-12-14] MEDS: Potassium Chloride Oral Tablet 10 MEQ PO (16:34)
== END 2020-12-14 17:49 ==
PROVIDERS: Emergency Provider Emergency Medicine
DX: F03.91 Unspecified dementia, unspecified severity, with behavioral disturbance (principal); G20 Parkinson's disease; I25.10 Atherosclerotic heart disease of native coronary artery without angina pectoris; I10 Essential (primary) hypertension; E78.00 Pure hypercholesterolemia, unspecified; Z79.899 Other long term (current) drug therapy
CPT/HCPCS: 70450; 71045; 80053; 81001; 84443; 85025; 87426; 93005; 99285

== ENCOUNTER 2020-12-29 11:46 | Emergency (ER) | payer MEDICARE, SELFPAY ==
[2020-12-14 00:34] VITALS: BMI 22.8
[2020-12-29 11:48] VITALS: BP 133/69; PULSE 58; PULSE 62; RESP 17; TEMP 36.2; O2SAT 94; BMI 26.7
--- NOTE | 2020-12-29 12:04 | CT_ITS ---
STUDY: CT BRAIN WITHOUT CONTRAST REASON FOR EXAM: Female, 70 years old. Fall RADIATION DOSAGE (If Supplied By Facility): CTDIvol = ( 44.99 ) mGy, DLP = ( 779.24 ) mGycm TECHNIQUE: Transaxial CT imaging of the brain was performed without administration of intravenous contrast material. Coronal and sagittal reconstructions were performed. Individualized dose optimization techniques were used for this CT. COMPARISON: CT head without contrast 12/14/2020. FINDINGS: Normal soft tissue structures. Normal calvarium. Normal size ventricles and extra-axial spaces for the patient''s age. Normal white matter tracts of the cerebral hemispheres. Normal basal ganglia and thalami. Normal brainstem. Normal cerebellum. There is no intracranial hemorrhage. There are no findings of an acute ischemic infarction. Normal visualized paranasal sinuses. CT/Brain/Head without Contrast IMPRESSION: Normal unenhanced CT scan of the brain and unchanged when compared to 12/14/2020. Electronically Signed: Frank Fitzgerald MD at 12:37 EDT , Service support ,
--- NOTE | 2020-12-29 12:04 | CT_ITS ---
STUDY: CT FACIAL BONES WITHOUT CONTRAST REASON FOR EXAM: Female, 70 years old. Nose injury RADIATION DOSAGE (If Supplied By Facility): CTDIvol = ( 29.38 ) mGy, DLP = ( 496.03 ) mGycm TECHNIQUE: The patient was scanned in a multi detector CT scanner. Sagittal and coronal images were reconstructed. Individualized dose optimization techniques were used for this CT. COMPARISON: None. FINDINGS: Normal soft tissue structures. Normal orbital sommers and orbital contents. Normal nasal bones and anterior nasal spine. Normal facial bones. There is no demonstrated fracture. Normal visualized paranasal sinuses. CT/Sinus/Facial Bone IMPRESSION: No acute fracture of the maxillofacial bones and mandible. Electronically Signed: Frank Fitzgerald MD at 12:38 EDT , Service support ,
--- NOTE | 2020-12-29 13:29 | ED.DCSUM_ITS ---
- ER Visit Summary Date of Service: 12/29/20 Chief Complaint: Fall History of Present Illness: The patient is a 70 F presenting after fall. Patient states that she stood up and was in a hurry and tripped over her feet. She was in a hurry to go to the bathroom. She hit her nose on the door jam. She did not lose consciousness. She is not on anticoagulants. She was able to get up and ambulate after the fall. She has history of Parkinson's and has frequent falling. She denies chest pain or shortness of breath. She denies other complaints. Physical Examination: Vitals are stable. Patient is afebrile. Alert no acute distress. HEENT exam abrasion to nose, no septal hematoma, midface stable Neck is nontender Lungs are clear and equal bilaterally. Heart is regular rate and rhythm. Abdomen is soft nontender nondistended. Extremities are unremarkable. Skin is warm and dry. No focal neurologic deficit. Remainder of exam is unremarkable. Emergency Department Course and Treatment: CT head shows normal unenhanced CT scan of the brain and unchanged when compared to 12/14/2020. CT facial bones shows no acute fracture of the maxillofacial bones and mandible. Patient is resting comfortably on reevaluation. Advised to follow with primary care physician as needed. Advised return to the ED for worsening complaints. Disposition: Discharge home Impression: Status post mechanical fall, nose contusion This note was generated with [employer] dictation software. It may contain incorrect words, spelling, and punctuation that were not noted in review of the chart p rior to signing ED Disposition - Plan for ED Patient: Instructions: ED Mechanical Fall Referrals: Ghazala Leigh MD [Primary Care Provider] -
--- NOTE | 2020-12-29 13:33 | ED.DEP ---
ED Disposition - Plan for ED Patient: Instructions: ED Mechanical Fall Referrals: Ghazala Leigh MD [Primary Care Provider] -
--- NOTE | 2020-12-29 14:05 | NURSING ---
CALLED [facility], 70 MIN ETA
[2020-12-29] MEDS: LORazepam 0.5 MG Tablet PO (14:49)
[2020-12-29 15:09] VITALS: RESP 15
== END 2020-12-29 15:11 | disposition skilled nursing facility (03) ==
LOC: ED 12:15
PROVIDERS: Emergency Provider Emergency Medicine; PCP Family Medicine
DX: S00.33XA Contusion of nose, initial encounter (principal); I25.10 Atherosclerotic heart disease of native coronary artery without angina pectoris; E78.00 Pure hypercholesterolemia, unspecified; I10 Essential (primary) hypertension; G20 Parkinson's disease; W22.09XA Striking against other stationary object, initial encounter; Z79.82 Long term (current) use of aspirin; Z79.899 Other long term (current) drug therapy
CPT/HCPCS: 70450; 70486; 99284

== ENCOUNTER → 2021-02-11 18:00 | Outpatient (REF) | payer MEDICARE, SELFPAY ==
[2021-02-12 08:17] LABS: Color, Urine Yellow (Yellow); Glucose, Dipstick Normal (Normal); Ketone-Dipstick 15 mg/dl (Negative); Leukocyte Esterase-Dipstick 500 /ul (Negative); Nitrite-Dipstick Positive (Negative); Occult Blood-Urine 25 /ul (Negative); Protein-Dipstick 30 mg/dl (Negative); Urine Bilirubin Dipstick 1 mg/dL (Negative); Urine Clarity Cloudy (Clear); Urine Urobilinogen Normal (Normal)
== END ==
LOC: OLS.BROOKB 18:00
PROVIDERS: PCP Family Medicine; Visit Provider Family Medicine
DX: N39.0 Urinary tract infection, site not specified (principal)
CPT/HCPCS: 81002; 87086; 87088; 87186

== ENCOUNTER 2021-03-05 17:00 | Emergency (ER) | payer MEDICARE, SELFPAY ==
[2021-03-05 17:01] VITALS: BP 131/119; PULSE 84; RESP 18; TEMP 36.3; O2SAT 94; BMI 24.5
--- NOTE | 2021-03-05 17:14 | CT_ITS ---
STUDY: CT CERVICAL SPINE WITHOUT CONTRAST REASON FOR EXAM: Female, 70 years old. Fall, neck pain RADIATION DOSAGE (If Supplied By Facility): CTDIvol = ( 16.81 ) mGy, DLP = ( 328.41 ) mGycm TECHNIQUE: High resolution transaxial imaging was performed without contrast material. Sagittal and coronal images were reconstructed. Individualized dose optimization techniques were used for this CT. COMPARISON: None FINDINGS: Normal craniovertebral junction. Normal anterior atlantoaxial articulation. Normal odontoid process. Normal cervical lordosis. Normal vertebral bodies and posterior osseous elements. C2-3: Normal endplates. Normal disc height and morphology. Normal central canal and intervertebral neuroforamina. C3-4: Normal endplates. Normal disc height and morphology. Normal central canal and intervertebral neuroforamina. C4-5: Moderate bilateral facet hypertrophy produces mild bilateral neural foraminal stenosis. 2 mm of anterolisthesis of C4 on C5 with no spinal stenosis. C5-6: Normal endplates. Normal disc height and morphology. Normal central canal and intervertebral neuroforamina. C6-7: 2 mm of anterolisthesis of C6 on C7 with no spinal stenosis and mild bilateral neural foraminal stenosis. C7-T1: Normal endplates. Normal disc height and morphology. Normal central canal and intervertebral neuroforamina. Normal visualized soft tissue structures. CT/Spine Cervical without Contras IMPRESSION: No acute fracture or subluxation. Electronically Signed: Papito Villanueva MD at 18:42 EDT Tel , Service support ,
--- NOTE | 2021-03-05 17:14 | CT_ITS ---
STUDY: CT BRAIN WITHOUT CONTRAST REASON FOR EXAM: Female, 70 years old. head injury, headache RADIATION DOSAGE (If Supplied By Facility): CTDIvol = ( 44.99 ) mGy, DLP = ( 779.24 ) mGycm TECHNIQUE: Transaxial CT imaging of the brain was performed without administration of intravenous contrast material. Individualized dose optimization techniques were used for this CT. COMPARISON: 12/29/2020 FINDINGS: Normal soft tissue structures. Normal calvarium. Normal size ventricles and extra-axial spaces for the patient''s age. Normal white matter tracts of the cerebral hemispheres. Normal basal ganglia and thalami. Normal brainstem. Normal cerebellum. There is no intracranial hemorrhage. There are no findings of an acute ischemic infarction. Normal visualized paranasal sinuses. CT/Brain/Head without Contrast IMPRESSION: Normal unenhanced CT scan of the brain. Electronically Signed: Papito Villanueva MD at 18:38 EDT Tel , Service support ,
--- NOTE | 2021-03-05 17:14 | EX.ED.DYSGE1 ---
HPI History of Present Illness Chief Complaint: Fall Narrative Narrative: This patient is a 70-year-old female who had multiple falls today. History is limited due to dementia. Per report the patient had 3 separate falls today. She does not recall the falls. She initially denied pain. Then she stated she had leg pain. Apparently she had told EMS or staff at the facility that she was having right shoulder pain. No further history able to be obtained. [facility] Medical History (Updated 03/05/21 @ 19:[address] 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 Biliary dyskinesia Delusional disorder Dementia Depression Essential (primary) hypertension Essential (primary) hypertension GERD (gastroesophageal reflux disease) History of anesthesia reaction HLD (hyperlipidemia) Hyperlipemia Irritable bowel syndrome Obesity Obstructive sleep apnea Parkinson disease Piriformis syndrome of left side Psychosis REM sleep behavior disorder Restless leg syndrome Strain of right piriformis muscle Home Medications aspirin 81 mg PO DAILY@0800 07/20/14 [History Last Taken 09/15/20] fluoxetine 60 mg PO DAILY 07/20/14 [History Last Taken 09/15/20] mirtazapine 30 mg tablet 45 mg PO QHS tab 03/30/20 [History Last Taken 09/14/20] atorvastatin 40 mg PO QHS 10/19/20 [History Last Taken Unknown] metoprolol tartrate 12.5 mg PO BID 10/19/20 [History Last Taken Unknown] pantoprazole 40 mg PO DAILY 10/19/20 [History Last Taken Unknown] ropinirole 2 mg PO QHS 10/19/20 [History Last Taken Unknown] midodrine 10 mg PO TID #90 tab 10/25/20 [Rx Last Taken Unknown] potassium chloride 10 meq PO BIDCM #60 tab 10/25/20 [Rx Last Taken Unknown] clonazepam 0.25 mg PO LUNCH 12/14/20 [History Last Taken Unknown] melatonin 3 mg PO QHS 12/14/20 [History Last Taken Unknown] amlodipine 2.5 mg PO DAILY 12/29/20 [History Last Taken Unknown] clonazepam 1 mg PO QHS 12/29/20 [History Last Taken Unknown] olanzapine 5 mg PO QHS 12/29/20 [History Last Taken Unknown] Fluticasone Nasal [place] 2 spray NARES DAILY 03/05/21 [History Last Taken Unknown] diclofenac sodium [Diclo Gel] 1 ea TOPICAL TID PRN PRN 03/05/21 [History Last Taken Unknown] furosemide 20 mg PO DAILY 03/05/21 [History Last Taken Unknown] loperamide [Anti-Diarrhea] 2 mg PO Q6H PRN 03/05/21 [History Last Taken Unknown] naproxen 500 mg PO BID PRN 03/05/21 [History Last Taken Unknown] olanzapine 2.5 mg PO TID PRN PRN 03/05/21 [History Last Taken Unknown] tramadol 50 mg PO Q6H PRN 03/05/21 [History Last Taken Unknown] Allergy/AdvReac Type Severity Reaction Status Date / Time celecoxib [From Celebrex] Allergy Itching Verified 03/05/21 17:14 fentanyl Allergy Other Verified 03/05/21 17:14 Opioids - Morphine Analogues Allergy hallucinate Verified 03/05/21 17:14 promethazine HCl AdvReac hallucinate Verified 03/05/21 17:14 [From Phenergan] Family History Father CAD (coronary artery disease) Mother , age 78 CAD (coronary artery disease) Other Family history of hyperlipidemia Family history of hypertension Surgical History History of carpal tunnel release of both wrists History of cataract extraction History of cholecystectomy (12/16/19) History of coronary artery stent placement (10/08/13) History of hysterectomy History of left heart catheterization (04/11/17) History of nasal polypectomy Social History (Updated 03/30/20 @ 11:[address] Frandy Tarango MD) Smoking Status: Former smoker quit date: 10/06/05 pack-years: 20 alcohol intake: never caffeine: Yes Type: coffee Number of servings: 1 ROS ROS ED Review of Systems ROS Unobtainable: due to mental status EXAM Physical Exam Const Vital Signs: 03/05/21 17:01 03/05/21 17:37 Temperature 97.3 F L Temperature Source Oral Pulse Rate 84 Respiratory Rate 18 Respiratory Effort Normal Respiratory Depth Normal Respiratory Pattern Normal Blood Pressure 131/119 H Blood Pressure Mean 123 Pulse Ox 94 Oxygen Delivery Method Room Air Room Air Positive well nourished and well developed General Appearance ED: well developed HEENT HEENT Narrative: Patient has a healing abrasion in the right temporal region. This is already scabbed over. It was reported this was new however given already signs of healing this appears to be old. Eyes EOMs intact bilaterally Neck supple General: Negative for tenderness Chest Wall inspection of chest normal Resp normal respiratory effort and clear to auscultation bilaterally Cardio regular rate and regular rhythm GI non-tender Palpation: soft Extremity Extremity Narrative: Patient has no pain with passive range of motion x4 extremities, no reproducible tenderness Neuro Neuro Narrative: Oriented to self only Sensorium / Orientation: alert Psych Mood & Affect: tearful MDM MDM MDM Narrative Medical decision making narrative: EKG shows normal sinus rhythm with T wave inversions in the inferior and precordial leads. Labs unremarkable, normal urine, negative CT head neck and chest x-ray. Family called. They did not want the patient transported to begin with. Apparently she has a history of frequent falls. reports she is at her baseline. They would like the patient discharged back to the nursing facility. Lab Data Labs: Laboratory Results - last 24 hr 03/05/21 03/05/21 03/05/21 17:40 17:40 18:45 WBC 6.5 RBC 4.46 Hgb 13.5 Hct 42.2 MCV 94.6 MCH 30.3 MCHC 32.0 RDW Std Deviation 52.9 H RDW Coeff of Navjot 15.5 H Plt Count 111 L MPV 11.3 Immature Gran % (Auto) 0.300 Neut % (Auto) 77.8 H Lymph % (Auto) 15.0 L [place] % (Auto) 6.3 Eos % (Auto) 0.3 Baso % (Auto) 0.3 Absolute Neuts (auto) 5.0 Absolute Lymphs (auto) 0.97 Nucleated RBC % 0 Sodium 141 Potassium 4.0 Chloride 107 Carbon Dioxide 26.0 Anion Gap 8 BUN 30 H Creatinine 1.23 H Estim Creat Clear Calc 31.20 Est GFR (MDRD) Af Amer 55 L Est GFR (MDRD) Non-Af 46 L BUN/Creatinine Ratio 24.4 H Glucose 111 H Calcium 9.6 Total Bilirubin 0.80 AST 45 H ALT 28 Alkaline Phosphatase 123 H Total Protein 7.7 Albumin 4.8 Globulin 2.9 Albumin/Globulin Ratio 1.7 Urine Color Yellow Urine Clarity Clear Urine pH 5.0 Ur Specific [place] 1.025 Urine Protein 15 H Urine Glucose (UA) Normal Urine Ketones 15 H Urine Occult Blood Negative Urine Nitrite Negative Urine Bilirubin Negative Urine Urobilinogen 1 H Ur Leukocyte Esterase Negative Urine RBC 0 SEEN Urine WBC 0 SEEN Ur Squamous Epith Cells 0-5 SEEN Urine Bacteria 0 SEEN Urine Mucus 1+ Radiography Diagnostic Testing: Radiology Impression Brain CT 03/05/21 17:14 IMPRESSION: Normal unenhanced CT scan of the brain. Electronically Signed: Papito Villanueva MD at 18:38 EDT Tel , Service support , Cervical Spine CT 03/05/21 17:14 IMPRESSION: No acute fracture or subluxation. Electronically Signed: Papito Villanueva MD at 18:42 EDT Tel , Service support , Chest X-Ray 03/05/21 17:21 IMPRESSION: Normal x-ray examination of the chest. Electronically Signed: Papito Villanueva MD at 17:58 EDT Tel , Service support , Discharge Plan Triage Chief Complaint: Fall ED Provider: Yobani Abarca Dx/Rx/DC Orders Clinical Impression: Falls Instructions: ED Fall with Uncertain Cause Prescriptions: No Action mirtazapine 30 mg tablet 45 mg PO QHS RF: 0 aspirin 81 MG tablet,chewable 81 mg PO DAILY@0800 RF: 0 fluoxetine 20 MG capsule 60 mg PO DAILY RF: 0 ropinirole 4 MG tablet extended release 24 hr 2 mg PO QHS RF: 0 atorvastatin 40 MG tablet 40 mg PO QHS RF: 0 pantoprazole 40 MG tablet 40 mg PO DAILY RF: 0 metoprolol tartrate 25 MG tablet 12.5 mg PO BID RF: 0 midodrine 5 MG tablet 10 mg PO TID Qty: 90 RF: 0 potassium chloride 10 MEQ tablet 10 meq PO BIDCM Qty: 60 RF: 0 clonazepam 1 MG tablet 0.25 mg PO LUNCH RF: 0 melatonin 3 MG capsule 3 mg PO QHS RF: 0 amlodipine 5 MG tablet 2.5 mg PO DAILY RF: 0 olanzapine 5 MG tablet 5 mg PO QHS RF: 0 clonazepam 1 MG tablet 1 mg PO QHS RF: 0 loperamide [Anti-Diarrhea] 2 mg Tablet 2 mg PO Q6H PRN (Reason: Diarrhea) RF: 0 olanzapine 2.5 mg Tablet 2.5 mg PO TID PRN PRN (Reason: behaviors) RF: 0 tramadol 50 mg Tablet 50 mg PO Q6H PRN (Reason: Pain (Scale Score 4-6)) RF: 0 furosemide 20 mg Tablet 20 mg PO DAILY RF: 0 naproxen 500 mg Tablet 500 mg PO BID PRN (Reason: Pain (Scale Score 1-3)) RF: 0 Diclo Gel 1 % Kit 1 ea TOPICAL TID PRN PRN (Reason: SHOULDER PAIN) RF: 0 Fluticasone Nasal [place] 2 spray NARES DAILY RF: 0 Primary Care Provider: Ghazala Leigh Referrals: Ghazala Leigh MD [Primary Care Provider] - Disposition Disposition: [facility] Facility Discharge Location: [facility]
--- NOTE | 2021-03-05 17:16 | EKG12_ITS ---
Test Reason : FALL Blood Pressure : / mmHG Vent. Rate : 069 BPM Atrial Rate : 069 BPM P-R Int : 132 ms QRS Dur : 082 ms QT Int : 496 ms P-R-T Axes : 062 036 -57 degrees QTc Int : 531 ms Normal sinus rhythm ST & T wave abnormality, consider inferior ischemia ST & T wave abnormality, consider anterolateral ischemia Prolonged QT Abnormal ECG Confirmed by JOHNATHON LOPEZ, LIZ ([id number]), communications editor MARS HOPPER ([id number]) on 03/07/2021 1:00:26 PM Referred By: MATT Confirmed By:LIZ DIEGO MD
--- NOTE | 2021-03-05 17:21 | RAD_ITS ---
STUDY: X-RAY CHEST REASON FOR EXAM: Female, 70 years old. Weakness TECHNIQUE: Single AP portable view of the chest. COMPARISON: 12/14/2020 FINDINGS: The lungs are clear and expanded. There is no demonstrated pleural abnormality. Normal size heart. Normal mediastinum and ivy. Normal visualized pulmonary arteries. Normal visualized aortic arch and descending thoracic aorta. Normal visualized thoracic spine. Normal visualized ribs, clavicles, and shoulders. There is no demonstrated abnormality of the visualized soft tissue structures of the upper abdomen. RAD/Chest 1 View (Portable) IMPRESSION: Normal x-ray examination of the chest. Electronically Signed: Papito Villanueva MD at 17:58 EDT Tel , Service support ,
[2021-03-05 17:47] LABS: Absolute Lymphocyte Count 0.97 X10^3/uL (0.83-4.51); Basophil# 0.02 X10^3/uL; Basophil% 0.3 % (0-1); Eosinophil# 0.02 X10^3/uL; Eosinophils% 0.3 % (0-5); Hematocrit 42.2 % (37-47); Hemoglobin 13.5 g/dL (12.0-15.0); Lymphocyte # 0.97 X10^3/ul (0.83-4.51); Mean Corpuscular Hgb 30.3 pg (27.0-32.0); Mean Corpuscular Volume 94.6 fL (81-99); Mean Platelet Vol. 11.3 fl (6.2-12.0); Monocyte# 0.41 X10^3/uL; Monocyte% 6.3 % (0-10); NRBC Flagged by Analyzer 0 % (0-5); Neutrophil # 5.04 X10^3/uL (2.7-7.7); Neutrophil % 77.8 % (47-70); Platelet Count 111 K/mm3 (150-450); RBC Distribution Width CV 15.5 % (11.6-14.6); RBC Distribution Width SD 52.9 fl (35.1-43.9); Red Blood Count 4.46 M/mm3 (4.2-5.4); White Blood Count 6.5 K/mm3 (4.4-11.0)
[2021-03-05 18:01] LABS: ALB/GLOB Ratio 1.7 RATIO (0.9-2.4); AST(SGOT) 45 U/L (15-37); Alanine Aminotransfer ALT/SGPT 28 U/L (13-56); Albumin, Serum 4.8 g/dL (3.2-5.0); Alkaline Phosphatase 123 U/L (45-117); Anion Gap 8 (5-15); BUN 30 mg/dL (7-18); BUN/Creat Ratio 24.4 RATIO (10-20); Calcium,Total 9.6 mg/dL (8.5-10.1); Chloride 107 mmol/L (98-107); Creatinine, Serum 1.23 mg/dL (0.55-1.02); EST Glomerular Filtration Rate 46 mL/min (>60); Est Glom Filt Rate - Afr Amer 55 mL/min (>60); Globulin 2.9 g/dL (2.2-4.2); Glucose 111 mg/dL (74-106); Protein, Total 7.7 g/dL (6.4-8.2); Sodium Level 141 mmol/L (136-145)
[2021-03-05] MEDS: LORazepam 2 MG/ML Syringe 1 MG IV (18:50)
[2021-03-05 18:54] LABS: Bacteria 0 SEEN /hpf (None Seen); Red Blood Cells-Urine 0 SEEN /hpf (0-5); White Blood Cells 0 SEEN /hpf (0-5)
[2021-03-05 18:57] LABS: Color, Urine Yellow (Yellow); Glucose, Dipstick Normal (Normal); Ketone-Dipstick 15 mg/dl (Negative); Leukocyte Esterase-Dipstick Negative /ul (Negative); Nitrite-Dipstick Negative (Negative); Occult Blood-Urine Negative /ul (Negative); Protein-Dipstick 15 mg/dl (Negative); Specific Gravity, Urine 1.025 (1.002-1.030); Urine Bilirubin Dipstick Negative (Negative); Urine Clarity Clear (Clear); Urine Urobilinogen 1 mg/dl (Normal)
[2021-03-05 19:05] LABS: Mucous, Urine 1+ /hpf (<or=2+); Squamous Epithelial Cells - UA 0-5 SEEN /hpf (5-10)
[2021-03-05 19:36] VITALS: BP 174/89; PULSE 74; RESP 16; O2SAT 96
== END 2021-03-05 20:35 | disposition skilled nursing facility (03) ==
PROVIDERS: Emergency Provider Emergency Medicine; PCP Family Medicine
DX: M25.511 Pain in right shoulder (principal); K21.9 Gastro-esophageal reflux disease without esophagitis; I25.118 Atherosclerotic heart disease of native coronary artery with other forms of angina pectoris; E66.9 Obesity, unspecified; F02.80 Dementia in other diseases classified elsewhere, unspecified severity, without behavioral disturbance, psychotic disturbance, mood disturbance, and anxiety; F32.9 Major depressive disorder, single episode, unspecified; I10 Essential (primary) hypertension; E78.5 Hyperlipidemia, unspecified; Z87.891 Personal history of nicotine dependence; Z79.82 Long term (current) use of aspirin; Z79.899 Other long term (current) drug therapy
CPT/HCPCS: 70450; 71045; 72125; 80053; 81001; 85025; 93005; 96374; 99285; A4216

== ENCOUNTER 2021-03-16 01:13 | Emergency (ER) | payer MEDICARE, SELFPAY ==
[2021-03-16 01:14] VITALS: BP 126/55; PULSE 95; RESP 18; TEMP 35.7; O2SAT 92; BMI 11.5
--- NOTE | 2021-03-16 01:18 | EKG12_ITS ---
Test Reason : DYSRHYTHMIA Blood Pressure : / mmHG Vent. Rate : 093 BPM Atrial Rate : 093 BPM P-R Int : 130 ms QRS Dur : 086 ms QT Int : 368 ms P-R-T Axes : 062 -22 053 degrees QTc Int : 457 ms Normal sinus rhythm ST & T wave abnormality, consider anterior ischemia Abnormal ECG Confirmed by TETE LOPEZ, ANIKA ([id number]), associate editor MARS HOPPER ([id number]) on 03/19/2021 1:30:37 PM Referred By: WAYNE Confirmed By:ANIKA EPSTEIN MD
--- NOTE | 2021-03-16 01:19 | RAD_ITS ---
STUDY: X-RAY CHEST REASON FOR EXAM: Female, 70 years old. cough TECHNIQUE: Single AP portable view of the chest. COMPARISON: 03/05/2021 FINDINGS: The lungs are clear and expanded. There is no demonstrated pleural abnormality. Normal size heart. Normal mediastinum and ivy. Normal visualized pulmonary arteries. Normal visualized aortic arch and descending thoracic aorta. Normal visualized thoracic spine. Normal visualized ribs, clavicles, and shoulders. There is no demonstrated abnormality of the visualized soft tissue structures of the upper abdomen. RAD/Chest 1 View (Portable) IMPRESSION: Normal x-ray examination of the chest. Electronically Signed: Blanco Yañez DO at 1:53 EDT Tel , Service support ,
--- NOTE | 2021-03-16 01:19 | EX.ED.VIS.PS ---
HPI HPI - Psych History of Present Illness Chief Complaint: Confusion Informant: patient Narrative Narrative: Patient presents from the alf. She has been hallucinating and becoming more disruptive. She is on their Alzheimer's unit. She has been hallucinating and seeing small children on the unit. She is also being disruptive. This is been ongoing for about 5 days. They had psychiatry see her there and they adjusted her medications but is not helping. She has had no fevers or falls. The patient is currently denying any symptoms. 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 Biliary dyskinesia Delusional disorder Dementia Depression Essential (primary) hypertension Essential (primary) hypertension GERD (gastroesophageal reflux disease) History of anesthesia reaction HLD (hyperlipidemia) Hyperlipemia Irritable bowel syndrome Obesity Obstructive sleep apnea Parkinson disease Piriformis syndrome of left side Psychosis REM sleep behavior disorder Restless leg syndrome Strain of right piriformis muscle Home Medications aspirin 81 mg PO DAILY@0800 07/20/14 [History Last Taken 09/15/20] fluoxetine 60 mg PO DAILY 07/20/14 [History Last Taken 09/15/20] mirtazapine 30 mg tablet 45 mg PO QHS tab 03/30/20 [History Last Taken 09/14/20] atorvastatin 40 mg PO QHS 10/19/20 [History Last Taken Unknown] pantoprazole 40 mg PO DAILY 10/19/20 [History Last Taken Unknown] ropinirole 2 mg PO QHS 10/19/20 [History Last Taken Unknown] midodrine 10 mg PO TID #90 tab 10/25/20 [Rx Last Taken Unknown] potassium chloride 10 meq PO BIDCM #60 tab 10/25/20 [Rx Last Taken Unknown] clonazepam 0.25 mg PO LUNCH 12/14/20 [History Last Taken Unknown] melatonin 3 mg PO QHS 12/14/20 [History Last Taken Unknown] amlodipine 2.5 mg PO DAILY 12/29/20 [History Last Taken Unknown] clonazepam 1 mg PO QHS 12/29/20 [History Last Taken Unknown] Fluticasone Nasal [place] 2 spray NARES DAILY 03/05/21 [History Last Taken Unknown] diclofenac sodium [Diclo Gel] 1 ea TOPICAL TID PRN PRN 05/31/21 [History Last Taken Unknown] furosemide 20 mg PO DAILY 03/05/21 [History Last Taken Unknown] loperamide [Anti-Diarrhea] 2 mg PO Q6H PRN 03/05/21 [History Last Taken Unknown] naproxen 500 mg PO BID PRN 03/05/21 [History Last Taken Unknown] tramadol 50 mg PO Q6H PRN 03/05/21 [History Last Taken Unknown] carbidopa-levodopa 1 tab PO BID 03/16/21 [History Last Taken Unknown] lorazepam [Ativan] 0.5 mg PO TID 03/16/21 [History Last Taken Unknown] ropinirole 2 mg PO DAILY 03/16/21 [History Last Taken Unknown] venlafaxine 150 mg PO DAILY 03/16/21 [History Last Taken Unknown] Allergy/AdvReac Type Severity Reaction Status Date / Time celecoxib [From Celebrex] Allergy Itching Verified 03/16/21 01:22 fentanyl Allergy Other Verified 03/16/21 01:22 Opioids - Morphine Analogues Allergy hallucinate Verified 03/16/21 01:22 promethazine HCl AdvReac hallucinate Verified 03/16/21 01:22 [From Phenergan] Family History Father CAD (coronary artery disease) Mother , age 78 CAD (coronary artery disease) Other Family history of hyperlipidemia Family history of hypertension Surgical History History of carpal tunnel release of both wrists History of cataract extraction History of cholecystectomy (12/16/19) History of coronary artery stent placement (10/08/13) History of hysterectomy History of left heart catheterization (04/11/17) History of nasal polypectomy Social History Smoking Status: Former smoker quit date: 10/06/05 pack-years: 20 alcohol intake: never caffeine: Yes Type: coffee Number of servings: 1 ROS ROS ED Constitutional Constitutional ED: Denies chills or fever(s) Eyes Eyes: Denies blurry vision, change in vision or diplopia ENT ENT ED: Denies ear pain, rhinorrhea or sore throat Cardiovascular Cardiovascular: Denies chest pain or palpitations Respiratory/Chest Respiratory/Chest: Denies cough, dyspnea or sputum Gastrointestinal Gastrointestinal: Denies abdominal pain, diarrhea, nausea or vomiting Genitourinary Genitourinary ED: Denies dysuria, hematuria or urinary frequency Musculoskeletal Musculoskeletal: Denies back pain or neck pain Integumentary Denies change in pigmentation or rash Neurologic Neurologic: Denies headache(s), numbness or weakness Psychiatric Psychiatric: Reports other Details: Hallucinations, combative Endocrine Endocrinology: Denies polydipsia or polyuria EXAM Physical Exam Const Vital Signs: 03/16/21 01:14 03/16/21 03:16 03/16/21 05:06 Temperature 96.2 F L Temperature Source Oral Pulse Rate 95 Respiratory Rate 18 16 18 Blood Pressure 126/55 H Blood Pressure Mean 78 Pulse Ox 92 Oxygen Delivery Method Room Air Positive well nourished and well developed General Appearance ED: well developed and NAD HEENT Reports moist mucous membranes normocephalic and atraumatic; Negative for tenderness Eyes PERRL and EOMs intact bilaterally Neck supple and no JVD Chest Wall Chest: Negative for tenderness Resp normal respiratory effort and clear to auscultation bilaterally Effort and Inspection: Negative for respiratory distress Cardio regular rate, regular rhythm and no murmurs Rate: regular rate Rhythm: regular rhythm GI soft to palpation, non-tender and non-distended Palpation: soft Back/Spine no CVA tenderness and no thoracic nor lumbar tenderness Cervical Spine: Negative for cervical spine tenderness Extremity normal to inspection and full ROM General Extremety ED: Negative for tenderness Neuro oriented x3, CN's II-XII intact bilaterally and no sensory deficits noted Sensorium / Orientation: awake and alert Motor Exam: strength 5/5 throughout Psych Psych Narrative: Patient is currently denying any hallucinations. She is calm, resting in bed Skin no rashes or lesions noted MDM MDM MDM Narrative Medical decision making narrative: Patient's laboratory studies are at baseline. Creatinine is 1.15. Her potassium was 3.3 so I did give her oral potassium to replace this. No signs of an infection in the urine or chest. The patient's did call the emergency department stated that he did not want the patient to be transferred to another psychiatric facility. Crisis evaluated the patient and called the . If the alf is willing to accept the patient back I feel the patient is safe for this. However, if the patient is not accepted back at her facility, we will have to have our social media strategist review this case and discussed with the . Lab Data Labs: Laboratory Results - last 24 hr 03/16/21 03/16/21 03/16/21 01:20 01:20 01:20 WBC 5.1 RBC 4.18 L Hgb 12.8 Hct 40.3 MCV 96.4 MCH 30.6 MCHC 31.8 L RDW Std Deviation 57.4 H RDW Coeff of Navjot 16.3 H Plt Count 153 MPV 12.1 H Immature Gran % (Auto) 0.200 Neut % (Auto) 67.2 Lymph % (Auto) 24.1 [place] % (Auto) 6.4 Eos % (Auto) 1.9 Baso % (Auto) 0.2 Absolute Neuts (auto) 3.5 Absolute Lymphs (auto) 1.24 Nucleated RBC % 0 Sodium 145 Potassium 3.3 L Chloride 113 H Carbon Dioxide 23.0 Anion Gap 9 BUN 19 H Creatinine 1.15 H Estim Creat Clear Calc 19.41 Est GFR (MDRD) Af Amer 60 Est GFR (MDRD) Non-Af 49 L BUN/Creatinine Ratio 16.5 Glucose 138 H Calcium 8.9 Total Bilirubin 0.50 AST 13 L ALT 22 Alkaline Phosphatase 140 H Total Protein 6.5 Albumin 3.7 Globulin 2.8 Albumin/Globulin Ratio 1.3 TSH 2.11 Urine Color Urine Clarity Urine pH Ur Specific [place] Urine Protein Urine Glucose (UA) Urine Ketones Urine Occult Blood Urine Nitrite Urine Bilirubin Urine Urobilinogen Ur Leukocyte Esterase Urine RBC Urine WBC Ur Squamous Epith Cells Urine Bacteria Urine Mucus Urine Opiates Screen Urine Methadone Screen Ur Barbiturates Screen Ur Phencyclidine Scrn Ur Amphetamines Screen U Methamphetamin-MDMA U Benzodiazepines Scrn Urine Cocaine Screen U Cannabinoids Screen Ur Drug Screen Comment Ethyl Alcohol < 3.0 03/16/21 03/16/21 01:35 01:35 WBC RBC Hgb Hct MCV MCH MCHC RDW Std Deviation RDW Coeff of Navjot Plt Count MPV Immature Gran % (Auto) Neut % (Auto) Lymph % (Auto) [place] % (Auto) Eos % (Auto) Baso % (Auto) Absolute Neuts (auto) Absolute Lymphs (auto) Nucleated RBC % Sodium Potassium Chloride Carbon Dioxide Anion Gap BUN Creatinine Estim Creat Clear Calc Est GFR (MDRD) Af Amer Est GFR (MDRD) Non-Af BUN/Creatinine Ratio Glucose Calcium Total Bilirubin AST ALT Alkaline Phosphatase Total Protein Albumin Globulin Albumin/Globulin Ratio TSH Urine Color Yellow Urine Clarity Clear Urine pH 5.0 Ur Specific [place] 1.030 Urine Protein 15 H Urine Glucose (UA) Normal Urine Ketones 15 H Urine Occult Blood 150 H Urine Nitrite Negative Urine Bilirubin Negative Urine Urobilinogen 1 H Ur Leukocyte Esterase 25 H Urine RBC 10-25 SEEN Urine WBC 0-5 SEEN Ur Squamous Epith Cells 0-5 SEEN Urine Bacteria 2+ Urine Mucus 0 SEEN Urine Opiates Screen NEGATIVE Urine Methadone Screen NEGATIVE Ur Barbiturates Screen NEGATIVE Ur Phencyclidine Scrn NEGATIVE Ur Amphetamines Screen NEGATIVE U Methamphetamin-MDMA NEGATIVE U Benzodiazepines Scrn POSITIVE H Urine Cocaine Screen NEGATIVE U Cannabinoids Screen NEGATIVE Ur Drug Screen Comment Ethyl Alcohol Radiography Diagnostic Testing: Radiology Impression Chest X-Ray 03/16/21 01:19 IMPRESSION: Normal x-ray examination of the chest. Electronically Signed: Blanco Yañez DO at 1:53 EDT Tel , Service support , Discharge Plan Triage Chief Complaint: Confusion ED Provider: Benoit Gracia Dx/Rx/DC Orders Clinical Impression: Dementia with behavioral disturbance Prescriptions: No Action mirtazapine 30 mg tablet 45 mg PO QHS RF: 0 aspirin 81 MG tablet,chewable 81 mg PO DAILY@0800 RF: 0 fluoxetine 20 MG capsule 60 mg PO DAILY RF: 0 ropinirole 4 MG tablet extended release 24 hr 2 mg PO QHS RF: 0 atorvastatin 40 MG tablet 40 mg PO QHS RF: 0 pantoprazole 40 MG tablet 40 mg PO DAILY RF: 0 midodrine 5 MG tablet 10 mg PO TID Qty: 90 RF: 0 potassium chloride 10 MEQ tablet 10 meq PO BIDCM Qty: 60 RF: 0 clonazepam 1 MG tablet 0.25 mg PO LUNCH RF: 0 melatonin 3 MG capsule 3 mg PO QHS RF: 0 amlodipine 5 MG tablet 2.5 mg PO DAILY RF: 0 clonazepam 1 MG tablet 1 mg PO QHS RF: 0 loperamide [Anti-Diarrhea] 2 mg Tablet 2 mg PO Q6H PRN (Reason: Diarrhea) RF: 0 tramadol 50 mg Tablet 50 mg PO Q6H PRN (Reason: Pain (Scale Score 4-6)) RF: 0 furosemide 20 mg Tablet 20 mg PO DAILY RF: 0 naproxen 500 mg Tablet 500 mg PO BID PRN (Reason: Pain (Scale Score 1-3)) RF: 0 Diclo Gel 1 % Kit 1 ea TOPICAL TID PRN PRN (Reason: SHOULDER PAIN) RF: 0 Fluticasone Nasal [place] 2 spray NARES DAILY RF: 0 carbidopa-levodopa 25-250 mg Tablet 1 tab PO BID RF: 0 venlafaxine 150 mg Capsule,Extended Release 24hr 150 mg PO DAILY RF: 0 lorazepam [Ativan] 0.5 mg Tablet 0.5 mg PO TID RF: 0 ropinirole 2 mg Tablet 2 mg PO DAILY RF: 0 Primary Care Provider: Ghazala Leigh Referrals: Ghazala Leigh MD [Primary Care Provider] -
[2021-03-16 01:33] LABS: Absolute Lymphocyte Count 1.24 X10^3/uL (0.83-4.51); Absolute Neutrophil Count 3.5 X10^3/uL (2.0-7.7); Basophil# 0.01 X10^3/uL; Basophil% 0.2 % (0-1); Eosinophils% 1.9 % (0-5); Hematocrit 40.3 % (37-47); Hemoglobin 12.8 g/dL (12.0-15.0); Lymphocyte # 1.24 X10^3/ul (0.83-4.51); Lymphocyte % 24.1 % (19-41); Mean Corp Hgb Conc 31.8 g/dL (32-36); Mean Corpuscular Hgb 30.6 pg (27.0-32.0); Mean Corpuscular Volume 96.4 fL (81-99); Mean Platelet Vol. 12.1 fl (6.2-12.0); Monocyte# 0.33 X10^3/uL; Monocyte% 6.4 % (0-10); NRBC Flagged by Analyzer 0 % (0-5); Neutrophil # 3.45 X10^3/uL (2.7-7.7); Neutrophil % 67.2 % (47-70); Platelet Count 153 K/mm3 (150-450); RBC Distribution Width CV 16.3 % (11.6-14.6); RBC Distribution Width SD 57.4 fl (35.1-43.9); Red Blood Count 4.18 M/mm3 (4.2-5.4); White Blood Count 5.1 K/mm3 (4.4-11.0)
[2021-03-16 01:47] LABS: Mucous, Urine 0 SEEN /hpf (<or=2+)
[2021-03-16 01:47] LABS: Alcohol, Blood (Medical)-Serum < 3.0 mg/dL
[2021-03-16 01:48] LABS: Color, Urine Yellow (Yellow); Glucose, Dipstick Normal (Normal); Ketone-Dipstick 15 mg/dl (Negative); Leukocyte Esterase-Dipstick 25 /ul (Negative); Nitrite-Dipstick Negative (Negative); Occult Blood-Urine 150 /ul (Negative); Protein-Dipstick 15 mg/dl (Negative); Urine Bilirubin Dipstick Negative (Negative); Urine Clarity Clear (Clear); Urine Urobilinogen 1 mg/dl (Normal)
[2021-03-16 01:57] LABS: ALB/GLOB Ratio 1.3 RATIO (0.9-2.4); AST(SGOT) 13 U/L (15-37); Alanine Aminotransfer ALT/SGPT 22 U/L (13-56); Albumin, Serum 3.7 g/dL (3.2-5.0); Alkaline Phosphatase 140 U/L (45-117); Anion Gap 9 (5-15); BUN 19 mg/dL (7-18); BUN/Creat Ratio 16.5 RATIO (10-20); Calcium,Total 8.9 mg/dL (8.5-10.1); Chloride 113 mmol/L (98-107); Creatinine, Serum 1.15 mg/dL (0.55-1.02); EST Glomerular Filtration Rate 49 mL/min (>60); Est Glom Filt Rate - Afr Amer 60 mL/min (>60); Estimated Creatinine Clearance 19.41 ml/min; Globulin 2.8 g/dL (2.2-4.2); Glucose 138 mg/dL (74-106); Potassium 3.3 mmol/L (3.5-5.1); Protein, Total 6.5 g/dL (6.4-8.2); Sodium Level 145 mmol/L (136-145); Thyroid Stim Hormone (TSH) 2.11 uIU/mL (0.358-3.74)
[2021-03-16 01:58] LABS: Bacteria 2+ /hpf (None Seen); Red Blood Cells-Urine 10-25 SEEN /hpf (0-5); Squamous Epithelial Cells - UA 0-5 SEEN /hpf (5-10); White Blood Cells 0-5 SEEN /hpf (0-5)
[2021-03-16] MEDS: Potassium Chloride Oral Tablet 20 MEQ PO (02:11)
--- NOTE | 2021-03-16 02:51 | ED.RN ---
crisis paged to see patient at this time
--- NOTE | 2021-03-16 03:04 | ED.RN ---
crisis made aware of patient and faxing paperwork to them at this time
[2021-03-16 03:13] LABS: Amphetamine Urine VISTA NEGATIVE (<1000 ng/mL); Barbiturate Urine VISTA NEGATIVE (< 200 ng/mL); Benzodiazepine Urine VISTA POSITIVE (< 200 ng/mL); Cocaine Urine VISTA NEGATIVE (< 300 ng/mL); Ecstacy Urine VISTA NEGATIVE (< 500 ng/mL); Methadone Urine VISTA NEGATIVE (< 300 ng/mL); PCP Urine VISTA NEGATIVE (< 25 ng/mL); THC Urine VISTA NEGATIVE (< 50 ng/mL); Vista UDS pH Range 3
[2021-03-16 03:16] VITALS: RESP 16
--- NOTE | 2021-03-16 03:56 | ED.RN ---
spoke with patients about plan of care. is refusing any transfer to a mental health facility. He will allow crisis to speak with patient but will not allow transfer. is patients POA. Crisis made aware. Crisis spoke with and relays the same information to to them. At this time crisis will not be in to see patient due to refusing transfer. Phone call to [facility] at this time to speak with nurse. No nurse on staff. DON to call [facility] once she arrives to determine if they will accept patient back or not. At this time we will observe patient until hearing back from [facility]
[2021-03-16 05:06] VITALS: RESP 18
--- NOTE | 2021-03-16 06:48 | ED.RN ---
PATIENTS CALLED IN AND UPDATED PATIENT CONDITION AT THIS TIME ADVISED WE ARE WAITING FOR PHONE CALL FROM [facility] TO SEE IF THEY WILL ACCEPT THE PATIENT BACK
[2021-03-16 07:00] VITALS: BP 152/83; PULSE 86; RESP 18; O2SAT 90
--- NOTE | 2021-03-16 07:14 | ED.RN ---
CALLED NURSING STAFF AT THIS TIME AT [facility]. SPOKE WITH ABILIO MEYER AT THIS TIME. ADVISED HER OF SHE DOES NOT HAVE THE ABILITY TO MAKE THE DECISION IF THEY CAN ACCEPT THE PATIENT BACK AT THIS TIME. OTHER NURSE THAT IS ON SHIFT UNABLE TO MAKE THAT DECISION ALSO. ED STAFF WILL NEED TO CALL BACK BETWEEN [phone] TO SPEAK WITH DON WHO CAN MAKE DECISION ON WILLING TO ACCEPT PATIENT AT THE [facility]
--- NOTE | 2021-03-16 08:06 | ED.RN ---
REPORT CALLED TO ANG[facility] AT [phone] THIS NURSE SPOKE WITH ELENA KNOX.
[2021-03-16 08:48] VITALS: RESP 16
== END 2021-03-16 08:47 | disposition home or self-care (01) ==
PROVIDERS: Emergency Provider Emergency Medicine; PCP Family Medicine
DX: F03.91 Unspecified dementia, unspecified severity, with behavioral disturbance (principal); I10 Essential (primary) hypertension; E78.5 Hyperlipidemia, unspecified; K21.9 Gastro-esophageal reflux disease without esophagitis; F41.9 Anxiety disorder, unspecified; K58.9 Irritable bowel syndrome, unspecified; I25.118 Atherosclerotic heart disease of native coronary artery with other forms of angina pectoris; Z79.82 Long term (current) use of aspirin; Z79.899 Other long term (current) drug therapy; Z87.891 Personal history of nicotine dependence
CPT/HCPCS: 71045; 80053; 80307; 81001; 82077; 84443; 85025; 87426; 93005; 99285; P9612

== ENCOUNTER → 2021-03-19 09:49 | Emergency (ER) | payer MEDICARE, SELFPAY ==
[2021-03-16 01:14] VITALS: BMI 11.5
[2021-03-19 09:50] VITALS: BP 151/90; PULSE 122; RESP 20; O2SAT 100
[2021-03-19] MEDS: Rocuronium Bromide 50 MG/5 ML Vial 15 MG IV (09:58)
--- NOTE | 2021-03-19 10:00 | RAD_ITS ---
STUDY: X-RAY CHEST REASON FOR EXAM: Female, 70 years old. ETT PLACEMENT TECHNIQUE: Single AP portable view of the chest. COMPARISON: Comparison is made with prior examination done earlier today at 1:35 AM. FINDINGS: An endotracheal tube is in situ. The tip is at 3 cm proximal to the arnold. EKG electrodes are seen. The lungs are clear and expanded. There is no demonstrated pleural abnormality. Normal size heart. Normal mediastinum and ivy. Normal visualized pulmonary arteries. Normal visualized aortic arch and descending thoracic aorta. There are mild degenerative changes of the visualized thoracic spine. Deformity of the proximal right humerus suggestive of prior healed fracture. There is no demonstrated abnormality of the visualized soft tissue structures of the upper abdomen. RAD/Chest 1 View IMPRESSION: The tip of the endotracheal tube is at 3 cm proximal to the arnold. The lungs are clear. Electronically Signed: Nabil Wadsworth MD at 10:17 EDT , Service support ,
[2021-03-19 10:03] VITALS: BP 82/57; PULSE 108; PULSE 109; RESP 13; RESP 19; O2SAT 83; O2SAT 96
--- NOTE | 2021-03-19 10:12 | CM.ED ---
SOCIAL WORK Responded to [employer]. No family present at this time. Call to patient's , Ben. Updated on change in status. reports will be leaving for ER at this time. Staff updated. Jessica Russo MSW, [employer] F[employer] HAND
[2021-03-19] MEDS: Etomidate 20 MG/10 ML Vial 30 MG IV (10:14)
[2021-03-19 10:17] VITALS: TEMP 35.7; BMI 24.4
--- NOTE | 2021-03-19 10:17 | EKG12_ITS ---
Test Reason : Blood Pressure : / mmHG Vent. Rate : 145 BPM Atrial Rate : 145 BPM P-R Int : 126 ms QRS Dur : 128 ms QT Int : 316 ms P-R-T Axes : 064 -81 032 degrees QTc Int : 490 ms Poor data quality, interpretation may be adversely affected Sinus tachycardia with occasional Premature ventricular complexes Left axis deviation Right bundle branch block Abnormal ECG Confirmed by TETE LOPEZ, ANIKA ([id number]), digital editor MARS HOPPER ([id number]) on 03/22/2021 9:52:40 AM Referred By: Confirmed By:ANIKA EPSTEIN MD
--- NOTE | 2021-03-19 10:17 | CT_ITS ---
STUDY: CT HEAD STROKE PROTOCOL W/O CONTRAST INJECTION REASON FOR EXAM: Female, 70 years old. Neuro deficit, acute, stroke suspected RADIATION DOSAGE (If Supplied By Facility): CTDIvol = ( 44.99 ) mGy, DLP = ( 745.49 ) mGycm TECHNIQUE: Transaxial CT imaging of the brain was performed without administration of intravenous contrast material. Individualized dose optimization techniques were used for this CT. COMPARISON: Comparison is made with prior study dated 03/05/2021. FINDINGS: Normal soft tissue structures. Normal calvarium. There is mild cerebral atrophy with widening of the extra-axial spaces and ventricular dilatation. There are areas of decreased attenuation within the white matter tracts of the supratentorial brain, consistent with microvascular disease changes. Normal basal ganglia and thalami. Normal brainstem. Normal cerebellum. There is no intracranial hemorrhage. There are no findings of an acute ischemic infarction. Nodular mucosal thickening of the right maxillary sinus. CT/STROKE Brain/Head without Cont IMPRESSION: Chronic involutional changes of the brain. N.B. : The above information has been verbally conveyed by Nabil Wadsworth MD to Mark Coffman on 03/19/2021 10:34:27 (ET). Electronically Signed: Nabil Wadsworth MD at 10:35 EDT , Service support ,
[2021-03-19 10:31] LABS: Absolute Lymphocyte Count 2.81 X10^3/uL (0.83-4.51); Absolute Neutrophil Count 3.2 X10^3/uL (2.0-7.7); Basophil# 0.02 X10^3/uL; Basophil% 0.3 % (0-1); Eosinophil# 0.06 X10^3/uL; Eosinophils% 0.9 % (0-5); Hemoglobin 13.6 g/dL (12.0-15.0); Lymphocyte # 2.81 X10^3/ul (0.83-4.51); Lymphocyte % 42.6 % (19-41); Mean Corp Hgb Conc 30.9 g/dL (32-36); Mean Corpuscular Hgb 30.6 pg (27.0-32.0); Mean Corpuscular Volume 99.1 fL (81-99); Monocyte# 0.44 X10^3/uL; Monocyte% 6.7 % (0-10); NRBC Flagged by Analyzer 0.3 % (0-5); Neutrophil # 3.19 X10^3/uL (2.7-7.7); Neutrophil % 48.4 % (47-70); Platelet Count 163 K/mm3 (150-450); RBC Distribution Width CV 16.5 % (11.6-14.6); RBC Distribution Width SD 60.1 fl (35.1-43.9); Red Blood Count 4.44 M/mm3 (4.2-5.4); White Blood Count 6.6 K/mm3 (4.4-11.0)
[2021-03-19 10:35] LABS: International Normalized Ratio 1.4; Prothrombin Time (Protime)PT. 16.3 SECONDS (11.7-14.9)
[2021-03-19 10:36] LABS: Partial Thromboplast Time 30.1 Seconds (24.1-36.2)
--- NOTE | 2021-03-19 10:36 | EDS_ITS ---
HPI History of Present Illness Chief Complaint: CPR Informant: EMS Onset/Context/Timing Onset: Today Context: Sudden Onset Timing: Continuous Mechanism/Context: Yes unknown Narrative Narrative: Patient presents with stroke symptoms that began at 0915 this morning. Upon EMS arrival to the hospital, the patient began having agonal breathing and lost her pulse. CPR was initiated once the patient was placed in a room. EMS reports that the patient had a facial droop but they did not note any extremity weakness. Patient was unable to provide any history due to her critical condition. 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 Biliary dyskinesia Delusional disorder Dementia Depression Essential (primary) hypertension Essential (primary) hypertension GERD (gastroesophageal reflux disease) History of anesthesia reaction HLD (hyperlipidemia) Hyperlipemia Irritable bowel syndrome Obesity Obstructive sleep apnea Parkinson disease Piriformis syndrome of left side Psychosis REM sleep behavior disorder Restless leg syndrome Strain of right piriformis muscle Home Medications aspirin 81 mg PO DAILY@0800 07/20/14 [History Last Taken 09/15/20] fluoxetine 60 mg PO DAILY 07/20/14 [History Last Taken 09/15/20] mirtazapine 30 mg tablet 45 mg PO QHS tab 03/30/20 [History Last Taken 09/14/20] atorvastatin 40 mg PO QHS 10/19/20 [History Last Taken Unknown] pantoprazole 40 mg PO DAILY 10/19/20 [History Last Taken Unknown] ropinirole 2 mg PO QHS 10/19/20 [History Last Taken Unknown] midodrine 10 mg PO TID #90 tab 10/25/20 [Rx Last Taken Unknown] potassium chloride 10 meq PO BIDCM #60 tab 10/25/20 [Rx Last Taken Unknown] clonazepam 0.25 mg PO LUNCH 12/14/20 [History Last Taken Unknown] melatonin 3 mg PO QHS 12/14/20 [History Last Taken Unknown] amlodipine 2.5 mg PO DAILY 12/29/20 [History Last Taken Unknown] clonazepam 1 mg PO QHS 12/29/20 [History Last Taken Unknown] Fluticasone Nasal [place] 2 spray NARES DAILY 03/05/21 [History Last Taken Unknown] diclofenac sodium [Diclo Gel] 1 ea TOPICAL TID PRN PRN 03/05/21 [History Last Taken Unknown] furosemide 20 mg PO DAILY 03/05/21 [History Last Taken Unknown] loperamide [Anti-Diarrhea] 2 mg PO Q6H PRN 03/05/21 [History Last Taken Unknown] naproxen 500 mg PO BID PRN 03/05/21 [History Last Taken Unknown] tramadol 50 mg PO Q6H PRN 03/05/21 [History Last Taken Unknown] carbidopa-levodopa 1 tab PO BID 03/16/21 [History Last Taken Unknown] lorazepam [Ativan] 0.5 mg PO TID 03/16/21 [History Last Taken Unknown] ropinirole 2 mg PO DAILY 03/16/21 [History Last Taken Unknown] venlafaxine 150 mg PO DAILY 03/16/21 [History Last Taken Unknown] Allergy/AdvReac Type Severity Reaction Status Date / Time celecoxib [From Celebrex] Allergy Itching Verified 03/19/21 10:13 fentanyl Allergy Other Verified 03/19/21 10:13 Opioids - Morphine Analogues Allergy hallucinate Verified 03/19/21 10:13 promethazine HCl AdvReac hallucinate Verified 03/19/21 10:13 [From Phenergan] Family History Father CAD (coronary artery disease) Mother , age 78 CAD (coronary artery disease) Other Family history of hyperlipidemia Family history of hypertension Surgical History History of carpal tunnel release of both wrists History of cataract extraction History of cholecystectomy (12/16/19) History of coronary artery stent placement (10/08/13) History of hysterectomy History of left heart catheterization (04/11/17) History of nasal polypectomy Social History Smoking Status: Former smoker quit date: 10/06/05 pack-years: 20 alcohol intake: never caffeine: Yes Type: coffee Number of servings: 1 ROS ROS ED Review of Systems ROS Unobtainable: due to endotracheal tube and due to mental status EXAM Physical Exam Const Vital Signs: 03/19/21 09:50 03/19/21 09:55 03/19/21 10:03 Temperature Temperature Source Pulse Rate [2] 122 H Pulse Rate [3] 108 H Pulse Rate [4] 109 H Respiratory Rate [2] 20 H Respiratory Rate [3] 13 Respiratory Rate [4] 19 H Respiratory Depth Shallow Respiratory Pattern Gasping Blood Pressure 151/90 H Blood Pressure [3] 82/57 L Blood Pressure [4] 82/57 L Pulse Ox 100 Oxygen Delivery Method Ambu-Bag Ambu-Bag 03/19/21 10:17 Temperature 96.2 F L Temperature Source Temporal Pulse Rate [2] Pulse Rate [3] Pulse Rate [4] Respiratory Rate [2] Respiratory Rate [3] Respiratory Rate [4] Respiratory Depth Respiratory Pattern Blood Pressure Blood Pressure [3] Blood Pressure [4] Pulse Ox Oxygen Delivery Method Positive well nourished and well developed General Appearance ED: well developed HEENT normocephalic Neck no JVD Resp Resp Narrative: Lung sounds are clear and equal with mechanical ventilation. Cardio regular rate and regular rhythm Peripheral Pulses: brachial pulses present and femoral pulses present GI non-distended Palpation: soft Neuro Sensorium / Orientation: lethargic MDM MDM MDM Narrative Medical decision making narrative: Patient regained pulse after CPR. Patient was given etomidate and rocuronium. Patient was intubated with a 7.5 ET tube to 22 cm at the lip using a glide scope. The tube was visualized passing through the vocal cords. There is good condensation in the tube. There are equal breath sounds bilaterally. Chest x-ray was obtained. There is 1 view. On my interpretation it shows good position of the tube approximately 3 cm above the arnold. There is no pneumothorax noted. Radiologist also interpreted the x-ray and agrees. Patient lost her pulse again. CPR was started again. Patient was given a dose of epinephrine and a dose of sodium bicarbonate. Patient regained her pulse. EKG was obtained at that time. On my interpretation, it showed sinus tachycardia with a rate of 145. There is a right bundle branch block pattern. There is left axis deviation. There is no acute ST or T wave changes. Patient was transferred for CT of the brain. This was obtained. Patient returned from CT scan. Patient lost her pulse again. At this time patient was noted to be DNR Comfort Care arrest. There is no CPR in progress. Patient was allowed to continue to become bradycardic and asystolic. Patient's was allowed to come in the room to be with her. Patient was pronounced at 10:29 AM. Lab Data Attestation: I reviewed the patient's lab results. Labs: Laboratory Results - last 24 hr 03/19/21 03/19/21 03/19/21 09:55 09:55 09:55 WBC 6.6 RBC 4.44 Hgb 13.6 Hct 44.0 MCV 99.1 H MCH 30.6 MCHC 30.9 L RDW Std Deviation 60.1 H RDW Coeff of Navjot 16.5 H Plt Count 163 MPV 12.0 Immature Gran % (Auto) 1.100 H Neut % (Auto) 48.4 Lymph % (Auto) 42.6 H [place] % (Auto) 6.7 Eos % (Auto) 0.9 Baso % (Auto) 0.3 Absolute Neuts (auto) 3.2 Absolute Lymphs (auto) 2.81 Nucleated RBC % 0.3 PT 16.3 H INR 1.4 APTT 30.1 Sodium 142 Potassium 4.6 Chloride 109 H Carbon Dioxide 18.0 L Anion Gap 15 BUN 18 Creatinine 1.34 H Estim Creat Clear Calc 34.15 Est GFR (MDRD) Af Amer 50 L Est GFR (MDRD) Non-Af 41 L BUN/Creatinine Ratio 13.4 Glucose 235 H Calcium 8.8 Troponin I 0.017 Radiography Chest X-Ray - ED: 1 View, Read by ED Physician, Read by Radiologist and No Acute Disease Diagnostic Testing: Radiology Impression Chest X-Ray 03/19/21 10:00 IMPRESSION: The tip of the endotracheal tube is at 3 cm proximal to the arnold. The lungs are clear. Electronically Signed: Nabil Wadsworth MD at 10:17 EDT , Service support , Brain CT 03/19/21 10:17 IMPRESSION: Chronic involutional changes of the brain. N.B. : The above information has been verbally conveyed by Nabil Wadsworth MD to Mark Coffman on 03/19/2021 10:34:27 (ET). Electronically Signed: Nabil Wadsworth MD at 10:35 EDT , Service support , ADDENDUM: 03/19/21 1042 IMPRESSION: Chronic involutional changes of the brain. N.B. : The above information has been verbally conveyed by Nabil Wadsworth MD to Mark Coffman on 03/19/2021 10:34:27 (ET). Electronically Signed: Nabil Wadsworth MD at 10:35 EDT , Service support , EKG Initial EKG: Interpretation: Sinus Tachycardia (145), RBBB and Non-Specific ST Changes Comments: Left axis deviation Prior EKG tracings: not available for review Procedures Intubations Intubation Method: orotracheal Intubation Verification: Bilateral breath sounds confirmed Intubation Complications: no complications Critical Care Time Critical Care Time: Yes Critical care time (excluding procedures): 30-74 minutes (39) Discharge Plan Triage Chief Complaint: CPR ED Provider: Mark Coffman Dx/Rx/DC Orders Clinical Impression: Cardiopulmonary arrest Prescriptions: No Action mirtazapine 30 mg tablet 45 mg PO QHS RF: 0 aspirin 81 MG tablet,chewable 81 mg PO DAILY@0800 RF: 0 fluoxetine 20 MG capsule 60 mg PO DAILY RF: 0 ropinirole 4 MG tablet extended release 24 hr 2 mg PO QHS RF: 0 atorvastatin 40 MG tablet 40 mg PO QHS RF: 0 pantoprazole 40 MG tablet 40 mg PO DAILY RF: 0 midodrine 5 MG tablet 10 mg PO TID Qty: 90 RF: 0 potassium chloride 10 MEQ tablet 10 meq PO BIDCM Qty: 60 RF: 0 clonazepam 1 MG tablet 0.25 mg PO LUNCH RF: 0 melatonin 3 MG capsule 3 mg PO QHS RF: 0 amlodipine 5 MG tablet 2.5 mg PO DAILY RF: 0 clonazepam 1 MG tablet 1 mg PO QHS RF: 0 loperamide [Anti-Diarrhea] 2 mg Tablet 2 mg PO Q6H PRN (Reason: Diarrhea) RF: 0 tramadol 50 mg Tablet 50 mg PO Q6H PRN (Reason: Pain (Scale Score 4-6)) RF: 0 furosemide 20 mg Tablet 20 mg PO DAILY RF: 0 naproxen 500 mg Tablet 500 mg PO BID PRN (Reason: Pain (Scale Score 1-3)) RF: 0 Diclo Gel 1 % Kit 1 ea TOPICAL TID PRN PRN (Reason: SHOULDER PAIN) RF: 0 Fluticasone Nasal [place] 2 spray NARES DAILY RF: 0 carbidopa-levodopa 25-250 mg Tablet 1 tab PO BID RF: 0 venlafaxine 150 mg Capsule,Extended Release 24hr 150 mg PO DAILY RF: 0 lorazepam [Ativan] 0.5 mg Tablet 0.5 mg PO TID RF: 0 ropinirole 2 mg Tablet 2 mg PO DAILY RF: 0 Primary Care Provider: Ghazala Leigh Referrals: Ghazala Leigh MD [Primary Care Provider] - Disposition Disposition: Date/Time: 03/19/21 10:29
--- NOTE | 2021-03-19 10:40 | CM.ED ---
SOCIAL WORK present at bedside. Patient . Emotional support provided to . requested to leave room to make phone calls. escorted to private triage room. calling patient's daughter at this time. This worker to remain available for emotional support. Jessica Russo, DINNER COOK, PLANE RUNNER
--- NOTE | 2021-03-19 10:45 | ED.RN ---
REMAINS AT BEDSIDE. AWAITING FAMILY. SOCIAL CASE MANAGEMENT WITH PT
[2021-03-19 10:47] LABS: Anion Gap 15 (5-15); BUN 18 mg/dL (7-18); BUN/Creat Ratio 13.4 RATIO (10-20); Calcium,Total 8.8 mg/dL (8.5-10.1); Chloride 109 mmol/L (98-107); Creatinine, Serum 1.34 mg/dL (0.55-1.02); EST Glomerular Filtration Rate 41 mL/min (>60); Est Glom Filt Rate - Afr Amer 50 mL/min (>60); Estimated Creatinine Clearance 34.15 ml/min; Glucose 235 mg/dL (74-106); Potassium 4.6 mmol/L (3.5-5.1); Sodium Level 142 mmol/L (136-145)
--- NOTE | 2021-03-19 11:14 | ED.RN ---
APPROX 400 ML 0.9 NS GIVEN
--- NOTE | 2021-03-19 11:20 | CM.ED ---
SOCIAL WORK Patient's daughter present with in room. All questions answered by nursing. Emotional support provided to family and encouraged to take as much time as needed. Family to update nursing when leaving ER. This worker to remain available for needs. Jessica Russo, AUTOMATION CONTROLS EXPERT, SOFTWARE DEVELOPMENT LEADER
== END ==
PROVIDERS: Emergency Provider Emergency Medicine; PCP Family Medicine
DX: I46.9 Cardiac arrest, cause unspecified (principal); I25.118 Atherosclerotic heart disease of native coronary artery with other forms of angina pectoris; Z87.891 Personal history of nicotine dependence
CPT/HCPCS: 31500; 70450; 71045; 80048; 84484; 85025; 85610; 85730; 92950; 93005; 96374; 96375; 99282; J7030; A4216